=== PATIENT | female | born 1965 | race African-American/Black ===

== ENCOUNTER 2017-08-15 08:18 | Inpatient (IN) | payer MEDICAID ==
[~2017-08-15] VITALS: Ht 154.9 cm; Wt 78.8 kg
[~2017-08-15 08:18] MED LIST: BACL-63; DICL-176; DOCU1CAP31; FENO1TAB41; FERR325T50 PO; FLUO20CA PO; NAPR-223; PREMARIN PO; ROSU20TA14; TRIA25CA; VENL37.588
[2017-08-15] MEDS ORDERED: SODIUM CHLORIDE 0.9% 1,000 ML IV ONE ×3 (08:42→18:00)
[2017-08-15] MEDS ORDERED: methylPREDNISolone SOD SUCC 125 MG/2 ML VL IV ONE (08:45)
[2017-08-15] MEDS ORDERED: diphenhdrAMINE HCL 50 MG/1 ML VL IV ONE ×5 (08:45→18:00)
[2017-08-15 09:04] LABS: Eosinophils # (auto) 0.2 uL; Neutrophils # (auto) 4.2 uL
[2017-08-15 09:06] LABS: Basophils # (auto) 0.1 uL; Basophils % (auto) 1.1 % (0.0-2.0); Eosinophils % (auto) 3.3 % (0.0-7.0); Hematocrit 36.2 % (36.0-46.0); Hemoglobin 11.6 g/dL (12.2-16.2); Lymphocytes # (auto) 1.4 uL; Lymphocytes % (auto) 22.5 % (10.0-50.0); Mean Corpuscular Hemoglobin 22.1 pg (28.0-32.0); Mean Corpuscular Hgb Conc. 31.9 g/dL (32.0-36.0); Mean Corpuscular Volume 69.3 fL (80.0-100.0); Monocytes # (auto) 0.2 uL; Monocytes % (auto) 4.1 % (0.0-12.0); Nucleated Red Blood Cells % 0.1 %; Platelet Count (auto) 323 10^3/uL (140-450); Red Blood Cells 5.22 10^6/uL (4.0-5.20)
[2017-08-15 09:25] LABS: Albumin 3.8 g/dL (3.4-5.0); BUN/Creatinine Ratio 11.2; Calcium 9.1 mg/dL (8.5-10.1); Magnesium 2.5 mg/dL (1.6-2.6); Potassium 4.1 mmol/L (3.5-5.1)
[2017-08-15 09:28] LABS: Total Protein 8.1 g/dL (6.4-8.2)
[2017-08-15] MEDS ORDERED: DEXAMETHASONE SOD PHOS 10MG/1ML VIAL INJ ONE (10:44)
[2017-08-15] MEDS ORDERED: DEXAMETHASONE SOD PHOS 4 MG/1ML SDV INJ IV ONE ×3 (11:00→18:00)
[2017-08-15 11:09] LABS: Urine Bacteria NONE SEEN /hpf (None Seen); Urine Blood Negative /uL (Negative); Urine Mucus FEW (None Seen); Urine Specific Gravity 1.018 (1.001-1.035); Urine WBC <1 /hpf (0 - 5)
[2017-08-15 12:58] LABS: Bilirubin, Total 0.3 mg/dL (0.2-1.0)
[2017-08-15] MEDS ORDERED: EPINEPHrine HCL 1 MG/1 ML AMP SC ONE ×2 (16:15→18:00)
[2017-08-15] MEDS: SODIUM CHLORIDE 0.9% 1,000 ML IV SCH (18:05)
[2017-08-15] MEDS ORDERED: LORazepam 0.5 MG TAB PO PRN (18:15)
[2017-08-15] MEDS ORDERED: HYDROcodone-ACET 5/325MG TAB PO PRN (18:15)
[2017-08-15] MEDS ORDERED: ACETAMINOPHEN 500 MG TAB PO PRN (18:15)
[2017-08-15] MEDS: FAMOTIDINE (10MG/ML) 2ML VL IV SCH (18:15)
[2017-08-15] MEDS ORDERED: NITROGLYCERIN 0.4 MG SL TAB SL PRN (18:15)
[2017-08-15] MEDS ORDERED: LACTULOSE 20Gm/30ML SOLN PO PRN (18:15)
[2017-08-15] MEDS ORDERED: TEMAZEPAM 15 MG CAP PO PRN (18:15)
[2017-08-15] MEDS ORDERED: ALBUTEROL SULF 2.5 MG/0.5ML(0.5%) NEB SOLN NEB PRN (18:15)
[2017-08-15] MEDS ORDERED: PROMETHAZINE HCL 25 MG/ML 1ML IV PRN (18:15)
[2017-08-15] MEDS ORDERED: MORPHINE SULFATE 10 MG/ML INJ 1ML SDV IV PRN ×2 (18:15)
[2017-08-15 20:30] VITALS: BP 137/73
[2017-08-15 23:04] VITALS: BP 137/73
[2017-08-16] MEDS: methylPREDNISolone SOD SUCC 40 MG/ML VL IV SCH ×4 (00:10→17:36)
[2017-08-16 01:46] VITALS: BP 137/73
[2017-08-16 05:00] VITALS: BP 145/71
[2017-08-16] MEDS: FAMOTIDINE (10MG/ML) 2ML VL IV SCH ×2 (05:22→17:37)
[2017-08-16] MEDS ORDERED: SIMV80TA73 PO (06:06)
[2017-08-16] MEDS ORDERED: RANI-226 PO (06:06)
[2017-08-16] MEDS ORDERED: QUET400T PO (06:06)
[2017-08-16] MEDS ORDERED: GABA300C10 PO (06:06)
[2017-08-16] MEDS ORDERED: LISI10TA6 PO (06:06)
[2017-08-16] MEDS: VENLAFAXINE HCL 37.5mg XR cap PO SCH (06:42)
[2017-08-16] MEDS: SODIUM CHLORIDE 0.9% 1,000 ML IV SCH (07:25)
[2017-08-16 09:00] VITALS: BP 135/81
[2017-08-16] MEDS: FLUoxetine HCL 20 MG CAP PO SCH (09:22)
[2017-08-16] MEDS: FERROUS SULFATE 325MG PO SCH (09:22)
[2017-08-16] MEDS: ENOXAPARIN SOD 40 MG/0.4 ML SYRINGE SC SCH (09:23)
[2017-08-16] MEDS: FENOFIBRATE 48MG PO SCH (09:31)
[2017-08-16] MEDS: PREMARIN 0.9 MG PO SCH (09:34)
[2017-08-16] MEDS: ALBUTEROL SULF 2.5 MG/0.5ML(0.5%) NEB SOLN NEB SCH ×2 (12:00→20:16)
[2017-08-16 13:00] VITALS: BP 158/97
[2017-08-16] MEDS ORDERED: SODIUM CHLORIDE 0.9 % NEB SOLN 3ML NEB ONE (14:40)
[2017-08-16] MEDS: diphenhdrAMINE HCL 50 MG/1 ML VL IV SCH ×2 (14:49→21:36)
[2017-08-16 17:00] VITALS: BP 134/81
[2017-08-16 22:00] VITALS: BP 157/96
[2017-08-16] MEDS: methylPREDNISolone SOD SUCC 125 MG/2 ML VL IV SCH (23:50)
[2017-08-17] MEDS: ALBUTEROL SULF 2.5 MG/0.5ML(0.5%) NEB SOLN NEB SCH ×4 (00:32→19:46)
[2017-08-17 05:15] VITALS: BP 152/95
[2017-08-17] MEDS: diphenhdrAMINE HCL 50 MG/1 ML VL IV SCH ×3 (05:45→21:53)
[2017-08-17] MEDS: methylPREDNISolone SOD SUCC 125 MG/2 ML VL IV SCH ×3 (05:46→17:28)
[2017-08-17] MEDS: FAMOTIDINE (10MG/ML) 2ML VL IV SCH ×2 (06:49→17:28)
[2017-08-17] MEDS: VENLAFAXINE HCL 37.5mg XR cap PO SCH (06:49)
[2017-08-17 07:27] VITALS: BP 139/76
[2017-08-17] MEDS: FENOFIBRATE 48MG PO SCH (10:00)
[2017-08-17] MEDS: PREMARIN 0.9 MG PO SCH (10:21)
[2017-08-17] MEDS: FERROUS SULFATE 325MG PO SCH (10:21)
[2017-08-17] MEDS: FLUoxetine HCL 20 MG CAP PO SCH (10:21)
[2017-08-17] MEDS: METOPROLOL TARTRATE 25 MG TAB PO SCH ×2 (10:21→21:55)
[2017-08-17] MEDS: ENOXAPARIN SOD 40 MG/0.4 ML SYRINGE SC SCH (10:22)
[2017-08-17 11:52] VITALS: BP 139/83
[2017-08-17 16:42] VITALS: BP 149/95
[2017-08-17] MEDS ORDERED: PROMETHAZINE W/CODEINE 5 ML ORAL SYRUP PO PRN (20:00)
[2017-08-17] MEDS ORDERED: THROAT LOZENGES(CEPASTAT) MT PRN (20:00)
[2017-08-17 22:00] VITALS: BP 150/92
[2017-08-18] MEDS: methylPREDNISolone SOD SUCC 125 MG/2 ML VL IV SCH ×3 (01:13→11:28)
[2017-08-18 05:00] VITALS: BP 155/79
[2017-08-18] MEDS: ALBUTEROL SULF 2.5 MG/0.5ML(0.5%) NEB SOLN NEB SCH ×3 (06:00→11:30)
[2017-08-18] MEDS: VENLAFAXINE HCL 37.5mg XR cap PO SCH (06:50)
[2017-08-18] MEDS: diphenhdrAMINE HCL 50 MG/1 ML VL IV SCH ×2 (06:50→14:00)
[2017-08-18] MEDS: FAMOTIDINE (10MG/ML) 2ML VL IV SCH (07:02)
[2017-08-18 08:20] LABS: Basophils # (auto) 0 uL; Basophils % (auto) 0.3 % (0.0-2.0); Eosinophils # (auto) 0 uL; Hematocrit 35.1 % (36.0-46.0); Hemoglobin 10.8 g/dL (12.2-16.2); Lymphocytes # (auto) 0.6 uL; Lymphocytes % (auto) 4.2 % (10.0-50.0); Mean Corpuscular Hemoglobin 21.5 pg (28.0-32.0); Mean Corpuscular Hgb Conc. 30.7 g/dL (32.0-36.0); Monocytes # (auto) 0.4 uL; Monocytes % (auto) 2.8 % (0.0-12.0); Neutrophils # (auto) 12.8 uL; Neutrophils % (auto) 92.7 % (37.0-80.0); Platelet Count (auto) 329 10^3/uL (140-450); Red Blood Cells 5.01 10^6/uL (4.0-5.20); White Blood Cell 13.8 10^3/uL (4.4-10.8)
[2017-08-18 08:37] LABS: Albumin 3.3 g/dL (3.4-5.0); BUN/Creatinine Ratio 22.1; Calcium 8.8 mg/dL (8.5-10.1); Potassium 3.6 mmol/L (3.5-5.1)
[2017-08-18 08:50] LABS: Bilirubin, Total 0.1 mg/dL (0.2-1.0); Total Protein 7.3 g/dL (6.4-8.2)
[2017-08-18 09:00] VITALS: BP 151/87
[2017-08-18] MEDS: FENOFIBRATE 48MG PO SCH (10:00)
[2017-08-18] MEDS: ENOXAPARIN SOD 40 MG/0.4 ML SYRINGE SC SCH (10:13)
[2017-08-18] MEDS: FLUoxetine HCL 20 MG CAP PO SCH (10:13)
[2017-08-18] MEDS: PREMARIN 0.9 MG PO SCH (10:13)
[2017-08-18] MEDS: FERROUS SULFATE 325MG PO SCH (10:13)
[2017-08-18] MEDS: METOPROLOL TARTRATE 25 MG TAB PO SCH (10:13)
[2017-08-18 13:00] VITALS: BP 174/95
[2017-08-18 13:08] VITALS: BP 146/94
== END 2017-08-18 13:55 | disposition home or self-care (01) | DRG 811 ==
LOC: ER 08:18 → TELE 08:19 → TELE-WESTW 20:30 → WEST WING 08-17 09:18
PROVIDERS: ADMIT Internal Medicine; ATTEND Internal Medicine
DX: T78.3XXA Angioneurotic edema, initial encounter (principal); E44.1 Mild protein-calorie malnutrition; I10 Essential (primary) hypertension; R22.9 Localized swelling, mass and lump, unspecified; T46.4X5A Adverse effect of angiotensin-converting-enzyme inhibitors, initial encounter; E78.5 Hyperlipidemia, unspecified; K21.9 Gastro-esophageal reflux disease without esophagitis; F32.9 Major depressive disorder, single episode, unspecified; F41.9 Anxiety disorder, unspecified; Y84.8 Other medical procedures as the cause of abnormal reaction of the patient, or of later complication, without mention of misadventure at the time of the procedure; Y92.89 Other specified places as the place of occurrence of the external cause; Z88.0 Allergy status to penicillin; Z79.899 Other long term (current) drug therapy
CPT/HCPCS: 36415; 71045; 80053; 81001; 83735; 85025; 94640; 94761; 96361; 96374; 96375; 96376; J0171; J1100; J3490

== ENCOUNTER 2023-06-16 09:58 | Emergency (ER) | payer MEDICAID, MEDICARE, OTHER ==
[~2023-06-16] VITALS: Ht 162.6 cm; Wt 62.4 kg
[~2023-06-16 09:58] MED LIST changes: +ASPI-498 OR; +ASPI-543 PO; +ATO40T PO; -BACL-63; +CETI10CA PO; -DICL-176; +DICY10CA PO; +DIPH25TA31 PO; +DIPH50TA9 PO; +DOCU-94 PO; -DOCU1CAP31; +ERGO2000 PO; +EST0625T PO; +ESTR1TAB6 PO; +FAMO-161 PO; +FER325T PO; -FERR325T50 PO; +FLUO20TA36 PO; +LEV75T PO; +LEVO75TA6 PO; +LINA290C OR; +LISI10TA34 PO; +METF-370 PO; +METO10TA3 PO; +METO1TAB77 PO; +METO25TA5 PO; -NAPR-223; +OMEP20TA PO; +PANT40TA2 PO; +POLY33504 PO; -PREMARIN PO; +QUET300T14 PO; +QUET400T PO; -ROSU20TA14; +SIMV40TA18 PO; +SUCR1TAB PO; +SUCR1TAB22 OR; -TRIA25CA; +ZOLP5TAB5 PO
[2023-06-16 10:31] VITALS: BP 112/73; PULSE 83; RESP 18; TEMP 97.8; O2SAT 99
[2023-06-16] MEDS ORDERED: OMEP-434 PO (10:53)
== END 2023-06-16 11:04 | disposition home or self-care (01) ==
LOC: ER 09:58
DX: S63.632A Sprain of interphalangeal joint of right middle finger, initial encounter (principal); Z88.0 Allergy status to penicillin; Z79.899 Other long term (current) drug therapy; W23.0XXA Caught, crushed, jammed, or pinched between moving objects, initial encounter; Y93.89 Activity, other specified; Y92.89 Other specified places as the place of occurrence of the external cause; Y99.8 Other external cause status
CPT/HCPCS: 29130; 73130

== ENCOUNTER 2023-10-09 09:44 | Emergency (ER) | payer OTHER ==
[~2023-10-09 09:44] MED LIST changes: +OMEP-434 PO
[2023-10-09 11:04] LABS: Basophils # (auto) 0 10 ^3/uL (0-0.2); Eosinophils # (auto) 0.1 10 ^3/uL (0-0.8); Hemoglobin 11.2 g/dL (12.2-16.2); Lymphocytes # (auto) 2.2 10 ^3/uL (0.4-5.4); Mean Corpuscular Hemoglobin 20.8 pg (28.0-32.0); Mean Corpuscular Volume 67.1 fL (80.0-100.0)
[2023-10-09 11:05] LABS: Basophils % (auto) 0.6 % (0.0-2.0); Hematocrit 36.2 % (36.0-46.0); Lymphocytes % (auto) 39.8 % (10.0-50.0); Mean Corpuscular Hgb Conc. 30.9 g/dL (32.0-36.0); Monocytes # (auto) 0.4 10 ^3/uL (0-1.3); Monocytes % (auto) 6.5 % (0.0-12.0); Neutrophils # (auto) 2.9 10 ^3/uL (1.6-8.6); Neutrophils % (auto) 52.1 % (37.0-80.0); Nucleated Red Blood Cells % 0.1 %; Red Blood Cells 5.39 10^6/uL (4.0-5.20); Red Cell Distribution Width 14.3 % (11.8-14.3); White Blood Cell 5.6 10^3/uL (4.4-10.8)
[2023-10-09 11:13] LABS: Alanine Aminotransferase 24 U/L (7-40); Albumin 4.3 g/dL (3.2-4.8); Alkaline Phosphatase 74 U/L (46-116); Anion Gap 7 (5-15); Aspartate Aminotransferase 27 U/L (13-40); BUN/Creatinine Ratio 14.7 (10.0-20.0); Blood Urea Nitrogen 16 mg/dL (9-23); Calcium 9.3 mg/dL (8.7-10.4); Carbon Dioxide 29 mmol/L (20-30); Chloride 104 mmol/L (98-107); Glucose 85 mg/dL (74-106); Lipase 42 U/L (12-53); Potassium 3.9 mmol/L (3.5-5.1); Sodium 140 mmol/L (136-145)
[2023-10-09 11:13] LABS: Urine Bacteria FEW /hpf (None Seen); Urine Blood Negative /uL (Negative); Urine Clarity Clear (Clear); Urine Color Colorless (Yellow); Urine Protein, UAD Negative (Negative); Urine Specific Gravity 1.011 (1.001-1.035); Urine Urobilinogen Normal (Negative); Urine WBC <1 /hpf (0 - 5); Urine pH 6.5 (5.0-8.0)
[2023-10-09 11:14] LABS: Bilirubin, Total 0.3 mg/dL (0.2-1.0); Total Protein 6.8 g/dL (5.7-8.2)
[2023-10-09] MEDS: ONDANSETRON HCL 4 MG/2 ML VIAL IV ONE (11:27)
[2023-10-09] MEDS: SODIUM CHLORIDE 0.9% 1,000 ML IV ONE (11:27)
[2023-10-09] MEDS: KETOROLAC TROMETH 30 MG/ML 1ML VIAL IV ONE (11:27)
[2023-10-09 11:34] LABS: Platelet Estimate Adequate
[2023-10-09 11:35] LABS: Hypochromia Marked
[2023-10-09] MEDS: GASTROGRAFIN 120 ML SOL ONE (12:14)
[2023-10-09] MEDS ORDERED: MAGN100T6 OR (14:19)
[2023-10-09] MEDS ORDERED: SODIENE35 RE (14:35)
[2023-10-09 14:42] VITALS: BP 110/77; PULSE 83; RESP 18; TEMP 98; O2SAT 98
[2023-10-09] MEDS: MAGNESIUM CITRATE SOLUTION 300 ML BTL PO ONE (14:44)
== END 2023-10-09 14:47 | disposition home or self-care (01) ==
LOC: ER 09:44
DX: K59.00 Constipation, unspecified (principal); I10 Essential (primary) hypertension; E11.9 Type 2 diabetes mellitus without complications; E78.5 Hyperlipidemia, unspecified; K21.9 Gastro-esophageal reflux disease without esophagitis; F41.9 Anxiety disorder, unspecified; F32.9 Major depressive disorder, single episode, unspecified; Z86.2 Personal history of diseases of the blood and blood-forming organs and certain disorders involving the immune mechanism; Z98.890 Other specified postprocedural states; Z88.8 Allergy status to other drugs, medicaments and biological substances; Z79.899 Other long term (current) drug therapy
CPT/HCPCS: 36415; 74250; 80053; 81001; 83690; 85025; 96361; 96374; 96375; 99284; J1885; J2405; J7030; Q9963

== ENCOUNTER → 2023-10-15 | Outpatient (CLI) | payer OTHER ==
[~2023-10-15] MED LIST changes: +MAGN100T6 OR; +SODIENE35 RE
== END | disposition home or self-care (01) ==
LOC: XYW 14:46
PROVIDERS: ATTEND Student in an Organized Health Care Education/Training Program
DX: R07.9 Chest pain, unspecified (principal); I51.89 Other ill-defined heart diseases
CPT/HCPCS: 93306

== ENCOUNTER → 2023-10-29 | Outpatient (CLI) | payer OTHER ==
[~2023-10-29] VITALS: Ht 154.9 cm; Wt 63.5 kg
[2023-10-29] MEDS: ADENOSINE 53 MG in GIVE UN-DILUTED 0 ML IV STA (12:24)
== END | disposition home or self-care (01) ==
LOC: XYW 10:04
PROVIDERS: ATTEND Student in an Organized Health Care Education/Training Program
DX: Z01.810 Encounter for preprocedural cardiovascular examination (principal); R07.9 Chest pain, unspecified; E78.5 Hyperlipidemia, unspecified; I10 Essential (primary) hypertension; E11.65 Type 2 diabetes mellitus with hyperglycemia; E03.9 Hypothyroidism, unspecified; Z79.899 Other long term (current) drug therapy
CPT/HCPCS: 78452; 93017; A9500; J0153

== ENCOUNTER 2023-11-20 08:37 | Inpatient (IN) | payer OTHER ==
[2023-11-16 09:01] LABS: Basophils # (auto) 0 10 ^3/uL (0-0.2); Eosinophils # (auto) 0.1 10 ^3/uL (0-0.8); Lymphocytes # (auto) 2.3 10 ^3/uL (0.4-5.4); Mean Corpuscular Hemoglobin 20.7 pg (28.0-32.0); Monocytes # (auto) 0.3 10 ^3/uL (0-1.3); Nucleated Red Blood Cells % 0.1 %; White Blood Cell 5.4 10^3/uL (4.4-10.8)
[2023-11-16 09:04] LABS: Basophils % (auto) 0.7 % (0.0-2.0); Hematocrit 33.9 % (36.0-46.0); Hemoglobin 10.4 g/dL (12.2-16.2); Lymphocytes % (auto) 43.1 % (10.0-50.0); Mean Corpuscular Hgb Conc. 30.7 g/dL (32.0-36.0); Mean Corpuscular Volume 67.5 fL (80.0-100.0); Monocytes % (auto) 4.8 % (0.0-12.0); Neutrophils # (auto) 2.7 10 ^3/uL (1.6-8.6); Neutrophils % (auto) 50.4 % (37.0-80.0); Red Blood Cells 5.03 10^6/uL (4.0-5.20); Red Cell Distribution Width 16.1 % (11.8-14.3)
[2023-11-16 09:10] LABS: Urine Bacteria MOD /hpf (None Seen); Urine Blood Negative /uL (Negative); Urine Clarity Turbid (Clear); Urine Color Light-Orange (Yellow); Urine Mucus FEW (None Seen); Urine Protein, UAD 2+ (Negative); Urine Specific Gravity 1.036 (1.001-1.035); Urine Urobilinogen Normal (Negative); Urine WBC 2 /hpf (0 - 5); Urine pH 5.5 (5.0-9.0)
[2023-11-16 09:17] LABS: Partial Thromboplastin Time 27.4 SEC (24.5-34.5); Prothrombin Time 10.5 sec (9.3-11.8)
[2023-11-16 09:32] LABS: Alanine Aminotransferase 27 U/L (7-40); Albumin 4.2 g/dL (3.2-4.8); Alkaline Phosphatase 70 U/L (46-116); Anion Gap 9 (5-15); Aspartate Aminotransferase 29 U/L (13-40); BUN/Creatinine Ratio 12.6 (10.0-20.0); Blood Urea Nitrogen 15 mg/dL (9-23); Calcium 9.1 mg/dL (8.5-10.1); Carbon Dioxide 24 mmol/L (20-30); Chloride 108 mmol/L (98-107); Glucose 126 mg/dL (74-106); Potassium 3.6 mmol/L (3.5-5.1); Sodium 141 mmol/L (136-145)
[2023-11-16 09:33] LABS: Bilirubin, Total 0.4 mg/dL (0.2-1.0); Hypochromia Moderate; Ovalocytes MODERATE; Platelet Estimate Adequate; Total Protein 6.8 g/dL (5.7-8.2)
[~2023-11-20] VITALS: Ht 154.9 cm; Wt 80.9 kg
[~2023-11-20 08:37] MED LIST changes: -ASPI-498 OR; -ASPI-543 PO; -ATO40T PO; +ATOR-507 PO; -DIPH50TA9 PO; +HYDR1TAB97 PO; -LEV75T PO; -LISI10TA34 PO; -METO25TA5 PO; -OMEP-434 PO; -PANT40TA2 PO; -QUET300T14 PO; -SUCR1TAB PO; -SUCR1TAB22 OR; +SUCR1TAB31 OR
[2023-11-20] MEDS ORDERED: PROPOFOL 10 MG/ML 20 ML IV ONE (09:48)
[2023-11-20] MEDS ORDERED: DexAMETHasone SOD PHOS 10MG/1ML VIAL INJ ONE (09:48)
[2023-11-20] MEDS ORDERED: ROCURONIUM 10MG/ML 10ML VIAL IV ONE (09:48)
[2023-11-20] MEDS ORDERED: GLYCOPYRROLATE 0.2 MG/ML 1ML VIAL ONE (09:48)
[2023-11-20] MEDS ORDERED: ONDANSETRON HCL 4 MG/2 ML VIAL ONE (09:48)
[2023-11-20] MEDS: GABAPENTIN 400 MG CAP PO ONE (10:50)
[2023-11-20] MEDS: oxyCODONE ER 20 MG TAB PO ONE (10:50)
[2023-11-20] MEDS: ACETAMINOPHEN IV 1000 MG/100ML (10MG/ML) IV ONE (10:50)
[2023-11-20] MEDS ORDERED: KETAMINE 50mg/ML 1ml syringe ONE (10:56)
[2023-11-20] MEDS ORDERED: fentaNYL CITRATE 100 MCG/2 ML VL ONE (10:56)
[2023-11-20] MEDS ORDERED: LIDOCAINE 1% INJ PF 5ML AMP ONE (10:57)
[2023-11-20] MEDS ORDERED: SODIUM CHLORIDE LOCK 10 ML ONE (11:40)
[2023-11-20] MEDS ORDERED: SUGAMMADEX 200mg/2ml Vial (100MG/ML) IV ONE (11:51)
[2023-11-20] MEDS ORDERED: VANCOMYCIN PER PHARMACY 0 MG IV SCH (13:30)
[2023-11-20] MEDS ORDERED: ONDANSETRON HCL 4 MG/2 ML VIAL IV PRN ×2 (13:30→14:30)
[2023-11-20] MEDS ORDERED: FAMOTIDINE 20 MG TAB PO PRN (13:30)
[2023-11-20] MEDS ORDERED: MORPHINE SULFATE INJ 2 MG/ml SYRG IV PRN (13:30)
[2023-11-20] MEDS ORDERED: NITROGLYCERIN 0.4 MG SL TAB SL PRN (13:30)
[2023-11-20] MEDS ORDERED: HYDR-4798 PO (13:55)
[2023-11-20] MEDS ORDERED: CYCL-611 PO (13:55)
[2023-11-20 13:58] VITALS: O2SAT 100
[2023-11-20] MEDS ORDERED: HYDROmorphone HCL 2 MG/ML VL/or syr IV PRN (14:30)
[2023-11-20] MEDS ORDERED: FLUMAZENIL 0.1 MG/ML INJ 10ML MDV IV PRN (14:30)
[2023-11-20] MEDS ORDERED: ePHEDrine SULFATE 50 MG/ML AMP IV PRN (14:30)
[2023-11-20] MEDS ORDERED: LABETALOL HCL 5 MG/ML 4ML SYRINGE IV PRN (14:30)
[2023-11-20] MEDS ORDERED: NALOXONE HCL 0.4 MG/ML VIAL IV PRN (14:30)
[2023-11-20] MEDS ORDERED: fentaNYL CITRATE 100 MCG/2 ML VL IV PRN (14:30)
[2023-11-20] MEDS ORDERED: hydrALAZINE HCL 20 MG/ML VL IV PRN (14:30)
[2023-11-20 17:00] VITALS: BP 147/94; PULSE 76; PULSE 86; RESP 18; RESP 20; TEMP 97.9; O2SAT 94; O2SAT 96
[2023-11-20] MEDS: ceFAZolin 1GM/50ML 50 ML IV SCH (17:03)
[2023-11-20] MEDS: D5W/SOD CHLO 0.9% 1,000 ML IV SCH (17:03)
[2023-11-20] MEDS: CYCLOBENZAPRINE HCL 10 MG TAB PO SCH (17:04)
[2023-11-20] MEDS: MORPHINE SULFATE INJ 2 MG/ml SYRG IV PRN (17:40)
[2023-11-20] MEDS: ZOLPIDEM TARTRATE 5 MG TAB PO SCH (17:41)
[2023-11-20] MEDS: VANCOMYCIN 750mg/150ml 150 ML IV ONE ×2 (18:00→22:21)
[2023-11-20 20:00] VITALS: PULSE 92
[2023-11-20] MEDS: metFORMIN HYDROCHLORIDE 500 MG TAB PO SCH (20:09)
[2023-11-20] MEDS: HYDROcodone-ACET 10/325MG TAB PO PRN (20:09)
[2023-11-20 21:00] VITALS: BP 138/83; PULSE 87; RESP 16; TEMP 98.3; O2SAT 95
[2023-11-20] MEDS: DOCUSATE SOD 100 MG CAP PO SCH (21:25)
[2023-11-20] MEDS: FERROUS SULFATE 325mg EC TAB PO SCH (21:25)
[2023-11-20] MEDS: METOPROLOL TARTRATE 50 MG TAB PO SCH (21:26)
[2023-11-20] MEDS: QUEtiapine FUMARATE 100 MG TAB PO SCH (22:22)
[2023-11-21] VITALS (8 sets, daily range): BP systolic 110–152; BP diastolic 63–90; PULSE 67–85; RESP 15–19; TEMP 97.8–98.9; O2SAT 90–96
[2023-11-21] MEDS: ceFAZolin 1GM/50ML 50 ML IV SCH (01:22)
[2023-11-21] MEDS: LEVOTHYROXINE SODIUM 25 MCG TAB PO SCH (06:51)
[2023-11-21] MEDS: METOCLOPRAMIDE HCL 10 MG TAB PO SCH (06:51)
[2023-11-21] MEDS: ESTRADIOL 1 MG TAB PO SCH (06:59)
[2023-11-21 08:57] LABS: Basophils # (auto) 0 10 ^3/uL (0-0.2); Basophils % (auto) 0.3 % (0.0-2.0); Chloride 108 mmol/L (98-107); Eosinophils # (auto) 0 10 ^3/uL (0-0.8); Eosinophils % (auto) 0.1 % (0.0-7.0); Mean Corpuscular Hemoglobin 21.1 pg (28.0-32.0); Nucleated Red Blood Cells % 0.1 %; Potassium 4.2 mmol/L (3.5-5.1); Sodium 139 mmol/L (136-145)
[2023-11-21 08:58] LABS: Anion Gap 8 (5-15); Carbon Dioxide 23 mmol/L (20-30)
[2023-11-21 08:59] LABS: Calcium 8.8 mg/dL (8.5-10.1); Hematocrit 28.7 % (36.0-46.0); Lymphocytes # (auto) 1.5 10 ^3/uL (0.4-5.4); Lymphocytes % (auto) 14.8 % (10.0-50.0); Mean Corpuscular Hgb Conc. 31.2 g/dL (32.0-36.0); Mean Corpuscular Volume 67.6 fL (80.0-100.0); Monocytes # (auto) 0.5 10 ^3/uL (0-1.3); Monocytes % (auto) 5.3 % (0.0-12.0); Neutrophils # (auto) 8.1 10 ^3/uL (1.6-8.6); Neutrophils % (auto) 79.5 % (37.0-80.0); Red Blood Cells 4.24 10^6/uL (4.0-5.20); Red Cell Distribution Width 16.4 % (11.8-14.3); White Blood Cell 10.2 10^3/uL (4.4-10.8)
[2023-11-21] MEDS: diphenhdrAMINE HCL 25 MG CAP PO SCH (09:00)
[2023-11-21] MEDS: PANTOPRAZOLE 40 MG TAB PO SCH (09:00)
[2023-11-21] MEDS: FLUoxetine HCL 20 MG CAP PO SCH (09:00)
[2023-11-21] MEDS: ERGOCALCIFEROL 50,000 UNIT(1.25MG) CAP PO SCH (09:00)
[2023-11-21] MEDS: POLYETHYLENE GLYCOL 17 GM PWDR PO SCH (09:01)
[2023-11-21] MEDS: FLUOXETINE HCL PO SCH (09:02)
[2023-11-21] MEDS: ESTROGENS CONJUGATED 1.25 MG PO SCH (09:02)
[2023-11-21 09:03] LABS: Glucose 129 mg/dL (74-106)
[2023-11-21 09:04] LABS: BUN/Creatinine Ratio 12.2 (10.0-20.0); Blood Urea Nitrogen 12 mg/dL (9-23)
[2023-11-21] MEDS: oxyCODONE HCL 5MG TAB PO PRN (09:15)
[2023-11-21] MEDS: VANCOMYCIN 750mg/150ml 150 ML IV SCH (11:00)
[2023-11-21] MEDS: HYDROmorphone HCL 2 MG TAB PO PRN (11:13)
[2023-11-21] MEDS ORDERED: DEXTROSE (50%) 50ML SYRG IV PRN (11:15)
[2023-11-21] MEDS: ACCU-CHEK COMFORT CURVE STRIP VI SCH (12:05)
[2023-11-21] MEDS: InsuLIN REG 1unit/0.01ml Soln (100units/ml) SC SCH (12:53)
[2023-11-21] MEDS: CARISOPRODOL 350 MG TAB PO SCH (13:58)
[2023-11-21] MEDS: METOPROLOL TARTRATE 50 MG TAB PO SCH (22:15)
[2023-11-22] VITALS (8 sets, daily range): BP systolic 111–145; BP diastolic 78–87; PULSE 83–89; RESP 17–18; TEMP 98.1–100.5; O2SAT 91–94
[2023-11-22 07:05] LABS: Basophils # (auto) 0 10 ^3/uL (0-0.2); Hematocrit 31.1 % (36.0-46.0); Lymphocytes # (auto) 2.1 10 ^3/uL (0.4-5.4); Neutrophils # (auto) 6.8 10 ^3/uL (1.6-8.6); Red Blood Cells 4.55 10^6/uL (4.0-5.20)
[2023-11-22 07:06] LABS: Chloride 106 mmol/L (98-107); Potassium 3.6 mmol/L (3.5-5.1); Sodium 137 mmol/L (136-145)
[2023-11-22 07:07] LABS: Anion Gap 10 (5-15); Basophils % (auto) 0.4 % (0.0-2.0); Calcium 8.4 mg/dL (8.5-10.1); Carbon Dioxide 21 mmol/L (20-30); Eosinophils # (auto) 0 10 ^3/uL (0-0.8); Eosinophils % (auto) 0.5 % (0.0-7.0); Hemoglobin 9.5 g/dL (12.2-16.2); Lymphocytes % (auto) 21.7 % (10.0-50.0); Mean Corpuscular Hemoglobin 20.9 pg (28.0-32.0); Mean Corpuscular Hgb Conc. 30.6 g/dL (32.0-36.0); Mean Corpuscular Volume 68.5 fL (80.0-100.0); Monocytes # (auto) 0.6 10 ^3/uL (0-1.3); Monocytes % (auto) 6.6 % (0.0-12.0); Neutrophils % (auto) 70.8 % (37.0-80.0); Nucleated Red Blood Cells % 0.1 %; Red Cell Distribution Width 16.4 % (11.8-14.3); White Blood Cell 9.6 10^3/uL (4.4-10.8)
[2023-11-22 07:12] LABS: BUN/Creatinine Ratio 10.1 (10.0-20.0); Blood Urea Nitrogen 9 mg/dL (9-23); Glucose 125 mg/dL (74-106)
[2023-11-22] MEDS: MAGNESIUM SULFATE 1GM/100ML 100 ML IV ONE (10:27)
[2023-11-22] MEDS: TRANEXAMIC ACID 20 ML ONE (10:27)
[2023-11-22] MEDS: LIDOCAINE 4MG/ML IV SOLN 500 ML IV ONE (10:27)
[2023-11-22] MEDS: LIDOCAINE W/ EPINEPHRINE 1% 20ML VIAL ONE (10:28)
[2023-11-22] MEDS: GABAPENTIN 400 MG CAP ONE (10:28)
[2023-11-22] MEDS: VANCOMYCIN HCL 1000 MG VL ONE (10:28)
[2023-11-22] MEDS: oxyCODONE ER 20 MG TAB PO ONE (10:28)
[2023-11-22] MEDS: LIDOCAINE HCL 2 %PF INJ 10ML AMP IJ ONE (10:29)
[2023-11-22] MEDS: ACETAMINOPHEN IV 100 ML IV ONE (10:29)
[2023-11-22] MEDS: FLUoxetine HCL 20 MG CAP PO SCH (11:16)
[2023-11-22] MEDS ORDERED: LEV100T PO (11:32)
[2023-11-22] MEDS: D5W/SOD CHLO 0.9% 1,000 ML IV SCH (11:34)
[2023-11-22] MEDS ORDERED: PLEC3TAB2 PO (11:52)
[2023-11-22] MEDS ORDERED: NALO1TAB4 PO (11:52)
[2023-11-22] MEDS ORDERED: HYDR50TA69 PO (11:52)
[2023-11-22] MEDS ORDERED: LUBI24CA7 PO (11:52)
[2023-11-22] MEDS ORDERED: AML5T GT (11:52)
[2023-11-22] MEDS: ACETAMINOPHEN 325 MG TAB PO PRN (21:19)
[2023-11-23] VITALS (8 sets, daily range): BP systolic 113–141; BP diastolic 66–92; PULSE 90–96; RESP 6–20; TEMP 98.4–100.3; O2SAT 90–93
[2023-11-23] MEDS: HYDROmorphone HCL 2 MG TAB PO PRN (09:31)
[2023-11-23 20:44] LABS: Urine Bacteria None Seen /hpf (None Seen)
[2023-11-23 21:32] LABS: Urine Blood 2+ /uL (Negative); Urine Clarity Clear (Clear); Urine Color Light-Yellow (Yellow); Urine Mucus FEW (None Seen); Urine Protein, UAD 2+ (Negative); Urine Specific Gravity 1.023 (1.001-1.035); Urine Urobilinogen Normal (Negative); Urine WBC 8 /hpf (0 - 5); Urine pH 6.5 (5.0-9.0)
[2023-11-23 21:34] LABS: Urine Budding Yeast Few /hpf (None Seen)
[2023-11-24 05:22] VITALS: BP 147/75; PULSE 86; RESP 17; TEMP 98; O2SAT 90
[2023-11-24 06:09] LABS: Basophils # (auto) 0 10 ^3/uL (0-0.2); Basophils % (auto) 0.4 % (0.0-2.0); Eosinophils # (auto) 0.2 10 ^3/uL (0-0.8); Lymphocytes # (auto) 1.3 10 ^3/uL (0.4-5.4); Mean Corpuscular Hgb Conc. 31.7 g/dL (32.0-36.0); Neutrophils # (auto) 6.4 10 ^3/uL (1.6-8.6); Nucleated Red Blood Cells % 0.1 %; White Blood Cell 8.7 10^3/uL (4.4-10.8)
[2023-11-24 06:12] LABS: Eosinophils % (auto) 2.1 % (0.0-7.0); Hematocrit 27.2 % (36.0-46.0); Hemoglobin 8.6 g/dL (12.2-16.2); Lymphocytes % (auto) 15.2 % (10.0-50.0); Mean Corpuscular Hemoglobin 21.2 pg (28.0-32.0); Mean Corpuscular Volume 66.9 fL (80.0-100.0); Monocytes # (auto) 0.7 10 ^3/uL (0-1.3); Monocytes % (auto) 8.6 % (0.0-12.0); Neutrophils % (auto) 73.7 % (37.0-80.0); Red Blood Cells 4.06 10^6/uL (4.0-5.20); Red Cell Distribution Width 15.6 % (11.8-14.3)
[2023-11-24 06:32] LABS: Alanine Aminotransferase 23 U/L (7-40); Alkaline Phosphatase 86 U/L (46-116); Anion Gap 9 (5-15); BUN/Creatinine Ratio 10.1 (10.0-20.0); Blood Urea Nitrogen 8 mg/dL (9-23); Calcium 8.6 mg/dL (8.5-10.1); Carbon Dioxide 23 mmol/L (20-30); Chloride 104 mmol/L (98-107); Glucose 111 mg/dL (74-106); Potassium 3.3 mmol/L (3.5-5.1); Sodium 136 mmol/L (136-145)
[2023-11-24 06:33] LABS: Albumin 3.4 g/dL (3.2-4.8); Aspartate Aminotransferase 47 U/L (13-40); Bilirubin, Total 0.5 mg/dL (0.2-1.0); Total Protein 5.4 g/dL (5.7-8.2)
[2023-11-24 08:30] VITALS: BP 121/86; PULSE 86; RESP 18; TEMP 98.6; O2SAT 93
[2023-11-24 12:41] VITALS: BP 121/76; PULSE 92; RESP 17; TEMP 98.8; O2SAT 93
[2023-11-24 16:50] VITALS: BP 123/64; PULSE 80; RESP 18; TEMP 99.2; O2SAT 94
[2023-11-24 22:00] VITALS: BP 135/91; PULSE 86; RESP 20; TEMP 98.5; O2SAT 92
[2023-11-25 00:12] VITALS: BP 124/81; PULSE 80; RESP 18; TEMP 98.1; O2SAT 94
[2023-11-25 05:13] VITALS: BP 128/76; PULSE 79; RESP 16; TEMP 98.6; O2SAT 95
[2023-11-25 08:28] VITALS: BP 139/79; PULSE 85; RESP 18; TEMP 98.5; O2SAT 92
[2023-11-25 12:43] VITALS: BP 131/71; PULSE 82; RESP 18; TEMP 98.4; O2SAT 96
[2023-11-25 16:47] VITALS: BP 113/76; PULSE 78; RESP 19; TEMP 98.6; O2SAT 94
[2023-11-25 21:00] VITALS: BP 114/65; PULSE 82; RESP 24; TEMP 100; O2SAT 99
[2023-11-26] VITALS (7 sets, daily range): BP systolic 113–136; BP diastolic 57–86; PULSE 65–85; RESP 17–20; TEMP 97–99.5; O2SAT 92–100
[2023-11-26] MEDS ORDERED: CARI-579 PO (11:16)
[2023-11-26] MEDS ORDERED: ACET-1882 PO (11:16)
[2023-11-26] MEDS ORDERED: HYDR2TAB3 PO (11:16)
[2023-11-26] MEDS ORDERED: DOCU-265 PO (11:16)
[2023-11-26] MEDS ORDERED: MORPHINE SULFATE INJ 2 MG/ml SYRG IV ONE (23:30)
[2023-11-27] VITALS (7 sets, daily range): BP systolic 111–136; BP diastolic 62–85; PULSE 69–79; RESP 17–70; TEMP 37.1; O2SAT 93–97
[2023-11-27] MEDS: LACTULOSE 20Gm/30ML SOLN PO ONE (06:36)
== END 2023-11-27 18:38 | disposition home health service (06) | DRG 460 ==
LOC: SUR 08:37 → TELE 13:26 → TELE-CENTR 15:24 → CENTRAL 11-25 23:50
PROVIDERS: ADMIT Orthopaedic Surgery; ATTEND Internal Medicine
PROC: 0SG00AJ Fusion of Lumbar Vertebral Joint with Interbody Fusion Device, Posterior Approach, Anterior Column, Open Approach (ICD-10-PCS; principal; 2023-11-23)
PROC: 01NB0ZZ Release Lumbar Nerve, Open Approach (ICD-10-PCS; 2023-11-23)
PROC: 00NY0ZZ Release Lumbar Spinal Cord, Open Approach (ICD-10-PCS; 2023-11-23)
PROC: 4A11X4G Monitoring of Peripheral Nervous Electrical Activity, Intraoperative, External Approach (ICD-10-PCS; 2023-11-23)
DX: M48.061 Spinal stenosis, lumbar region without neurogenic claudication (principal); M54.16 Radiculopathy, lumbar region; E03.9 Hypothyroidism, unspecified; F32.A Depression, unspecified; F41.9 Anxiety disorder, unspecified; E78.5 Hyperlipidemia, unspecified; G89.29 Other chronic pain; K58.9 Irritable bowel syndrome, unspecified; E11.9 Type 2 diabetes mellitus without complications; I10 Essential (primary) hypertension; Z83.3 Family history of diabetes mellitus; Z82.49 Family history of ischemic heart disease and other diseases of the circulatory system; Z79.4 Long term (current) use of insulin
CPT/HCPCS: 36415; 72100; 76000; 80048; 80053; 80202; 81001; 82565; 82962; 84443; 85025; 85610; 85730; 86850; 86900; 86901; 87086; 97110; 97116; 97163; 97530; G0378; J0131; J1100; J1815; J2405; J2704; J7042

== ENCOUNTER 2023-11-29 01:48 | Emergency (ER) | payer OTHER ==
[~2023-11-29] VITALS: Ht 154.9 cm; Wt 71.5 kg
[~2023-11-29 01:48] MED LIST changes: +ACET-1882 PO; +AML5T GT; +CARI-579 PO; +CYCL-611 PO; +DOCU-265 PO; +HYDR-4798 PO; -HYDR1TAB97 PO; +HYDR2TAB3 PO; +HYDR50TA69 PO; +LEV100T PO; +LUBI24CA7 PO; +NALO1TAB4 PO; +PLEC3TAB2 PO
[2023-11-29 02:10] VITALS: BP 113/77; PULSE 94; RESP 18; O2SAT 98
== END 2023-11-29 02:38 | disposition left against medical advice (07) ==
LOC: ER 01:48
DX: T81.89XD Other complications of procedures, not elsewhere classified, subsequent encounter (principal); Z53.21 Procedure and treatment not carried out due to patient leaving prior to being seen by health care provider; Y92.89 Other specified places as the place of occurrence of the external cause

== ENCOUNTER 2024-01-15 10:34 | Emergency (ER) | payer OTHER ==
[~2024-01-15] VITALS: Ht 154.9 cm; Wt 67.0 kg
[2024-01-15 11:16] LABS: Urine Bacteria FEW /hpf (None Seen); Urine Blood Negative /uL (Negative); Urine Clarity Turbid (Clear); Urine Color Yellow (Yellow); Urine Mucus FEW (None Seen); Urine Protein, UAD 2+ (Negative); Urine Specific Gravity 1.035 (1.001-1.035); Urine Urobilinogen Normal (Negative); Urine WBC 2 /hpf (0 - 5)
[2024-01-15 11:16] LABS: Basophils # (auto) 0 10 ^3/uL (0-0.2); Eosinophils # (auto) 0.1 10 ^3/uL (0-0.8); Lymphocytes # (auto) 1.7 10 ^3/uL (0.4-5.4); Monocytes # (auto) 0.3 10 ^3/uL (0-1.3); Neutrophils # (auto) 3.6 10 ^3/uL (1.6-8.6); Nucleated Red Blood Cells % 0.1 %
[2024-01-15 11:18] LABS: Basophils % (auto) 0.5 % (0.0-2.0); Hematocrit 33.6 % (36.0-46.0); Hemoglobin 10.5 g/dL (12.2-16.2); Lymphocytes % (auto) 29.7 % (10.0-50.0); Mean Corpuscular Hgb Conc. 31.1 g/dL (32.0-36.0); Mean Corpuscular Volume 67.3 fL (80.0-100.0); Monocytes % (auto) 5.9 % (0.0-12.0); Neutrophils % (auto) 62.9 % (37.0-80.0); Red Blood Cells 4.99 10^6/uL (4.0-5.20); Red Cell Distribution Width 13.8 % (11.8-14.3); White Blood Cell 5.8 10^3/uL (4.4-10.8)
[2024-01-15 11:20] LABS: Chloride 106 mmol/L (98-107); Potassium 3.9 mmol/L (3.5-5.1); Sodium 137 mmol/L (136-145)
[2024-01-15 11:21] LABS: Anion Gap 4 (5-15); Calcium 9.5 mg/dL (8.5-10.1); Carbon Dioxide 27 mmol/L (20-30)
[2024-01-15] MEDS: chlordiazePOXIDE HCL 5 MG CAP PO ONE (11:21)
[2024-01-15 11:26] LABS: Blood Urea Nitrogen 12 mg/dL (9-23); Glucose 96 mg/dL (74-106)
[2024-01-15 11:41] LABS: Hypochromia Slight; Ovalocytes FEW; Platelet Estimate Adequate
[2024-01-15 12:18] LABS: BUN/Creatinine Ratio 12.4 (10.0-20.0)
[2024-01-15] MEDS: cefTRIAXone SOD 1,000 MG VL IM ONE (12:34)
[2024-01-15] MEDS: GASTROGRAFIN 120 ML SOL ONE (13:56)
[2024-01-15 14:15] VITALS: BP 108/73; PULSE 86; RESP 16; TEMP 97.9; O2SAT 98
[2024-01-15] MEDS: LACTULOSE 20Gm/30ML SOLN PO ONE (14:54)
== END 2024-01-15 14:54 | disposition home or self-care (01) ==
LOC: ER 10:34
DX: K56.7 Ileus, unspecified (principal); F41.9 Anxiety disorder, unspecified; F32.9 Major depressive disorder, single episode, unspecified; E11.9 Type 2 diabetes mellitus without complications; K21.9 Gastro-esophageal reflux disease without esophagitis; E78.5 Hyperlipidemia, unspecified; I10 Essential (primary) hypertension; Z98.890 Other specified postprocedural states; Z90.49 Acquired absence of other specified parts of digestive tract; Z79.899 Other long term (current) drug therapy
CPT/HCPCS: 36415; 74018; 80048; 81001; 85025; 96372; 99284; J0696; Q9963

== ENCOUNTER → 2024-03-04 | Outpatient (CLI) | payer OTHER ==
[2024-03-04 12:20] LABS: Anion Gap 7 (5-15); Carbon Dioxide 27 mmol/L (20-30); Chloride 106 mmol/L (98-107); Potassium 4.3 mmol/L (3.5-5.1); Sodium 140 mmol/L (136-145)
[2024-03-04 12:21] LABS: Calcium 9.7 mg/dL (8.7-10.4)
[2024-03-04 12:24] LABS: Creatinine, Urine 217.98 mg/dL (30.0-125.0)
[2024-03-04 12:26] LABS: BUN/Creatinine Ratio 9.3 (10.0-20.0); Blood Urea Nitrogen 9 mg/dL (9-23); Glucose 92 mg/dL (74-106)
== END | disposition home or self-care (01) ==
LOC: LAB 11:26
PROVIDERS: ATTEND Internal Medicine
DX: E11.65 Type 2 diabetes mellitus with hyperglycemia (principal)
CPT/HCPCS: 36415; 80048; 82043; 82570; 83036

== ENCOUNTER 2024-05-25 20:35 | Observation (INO) | payer OTHER ==
[~2024-05-25] VITALS: Ht 154.9 cm; Wt 75.1 kg
[~2024-05-25 20:35] MED LIST changes: -FLUO20TA36 PO; +FLUO20TA42 PO; +HYDR-4564 PO; -HYDR2TAB3 PO; -LEV100T PO; +LEVO-849 PO
[2024-05-25 21:25] LABS: Urine Bacteria None Seen /hpf (None Seen); Urine WBC None Seen /hpf (0 - 5)
[2024-05-25 21:30] LABS: Urine Blood Negative /uL (Negative); Urine Clarity Clear (Clear); Urine Color Light-Yellow (Yellow); Urine Protein, UAD TRACE (Negative); Urine Specific Gravity 1.019 (1.001-1.035); Urine Urobilinogen Normal (Negative)
[2024-05-25 21:33] VITALS: TEMP 98.1
[2024-05-25] MEDS: HYDROcodone-ACET 10/325MG TAB PO ONE (22:04)
[2024-05-25 22:18] VITALS: PULSE 86; RESP 16; O2SAT 97
[2024-05-25] MEDS: cloNIDine HCL 0.1 MG TAB PO ONE (22:35)
[2024-05-25 22:53] LABS: Eosinophils # (auto) 0 10 ^3/uL (0-0.8); Lymphocytes # (auto) 1.3 10 ^3/uL (0.4-5.4); Monocytes # (auto) 0.4 10 ^3/uL (0-1.3); Nucleated Red Blood Cells % 0.1 %; White Blood Cell 7.1 10^3/uL (4.4-10.8)
[2024-05-25 22:55] LABS: Basophils # (auto) 0.1 10 ^3/uL (0-0.2); Basophils % (auto) 0.9 % (0.0-2.0); Eosinophils % (auto) 0.5 % (0.0-7.0); Hematocrit 36.2 % (36.0-46.0); Hemoglobin 11.4 g/dL (12.2-16.2); Lymphocytes % (auto) 18.9 % (10.0-50.0); Mean Corpuscular Hemoglobin 20.9 pg (28.0-32.0); Mean Corpuscular Hgb Conc. 31.3 g/dL (32.0-36.0); Mean Corpuscular Volume 66.7 fL (80.0-100.0); Neutrophils # (auto) 5.2 10 ^3/uL (1.6-8.6); Neutrophils % (auto) 73.7 % (37.0-80.0); Platelet Count (auto) 370 10^3/uL (140-450); Red Blood Cells 5.43 10^6/uL (4.0-5.20); Red Cell Distribution Width 15.6 % (11.8-14.3)
[2024-05-25 23:07] LABS: Chloride 100 mmol/L (98-107); Potassium 3.7 mmol/L (3.5-5.1); Sodium 135 mmol/L (136-145)
[2024-05-25 23:08] LABS: Anion Gap 7 (5-15); Calcium 9.7 mg/dL (8.7-10.4); Carbon Dioxide 28 mmol/L (20-31)
[2024-05-25 23:13] LABS: BUN/Creatinine Ratio 8.2 (10.0-20.0); Blood Urea Nitrogen 9 mg/dL (9-23); Glucose 102 mg/dL (74-106)
[2024-05-25] MEDS ORDERED: MAALOX PLUS or MAALOX 30 ML PO PRN (23:45)
[2024-05-25] MEDS ORDERED: DOCUSATE SOD 100 MG CAP PO PRN (23:45)
[2024-05-25] MEDS ORDERED: TEMAZEPAM 15 MG CAP PO PRN (23:45)
[2024-05-25] MEDS ORDERED: ACETAMINOPHEN 325 MG TAB PO PRN (23:45)
[2024-05-25] MEDS ORDERED: ONDANSETRON HCL 4 MG/2 ML VIAL IV PRN (23:45)
[2024-05-25] MEDS ORDERED: DEXTROSE (50%) 50ML SYRG IV PRN (23:45)
[2024-05-26] MEDS: LISINOPRIL 5 MG TAB PO ONE
[2024-05-26] MEDS ORDERED: hydrALAZINE HCL 25 MG TAB PO PRN
[2024-05-26] MEDS ORDERED: LACTULOSE 20Gm/30ML SOLN PO PRN
[2024-05-26] MEDS: HYDROcodone-ACET 5/325MG TAB PO PRN (03:11)
[2024-05-26] MEDS: SODIUM CHLOR 0.9% PF (SALINE LOCK) 10ML VIAL/SYR IV SCH (06:00)
[2024-05-26] MEDS: ACCU-CHEK COMFORT CURVE STRIP VI SCH (06:50)
[2024-05-26] MEDS: LEVOTHYROXINE SODIUM 100 MCG TAB PO SCH (06:54)
[2024-05-26] MEDS: VENLAFAXINE HCL 37.5mg XR cap PO SCH (06:57)
[2024-05-26] MEDS: InsuLIN REG 1unit/0.01ml Soln (100units/ml) SC SCH (07:00)
[2024-05-26 09:08] VITALS: PULSE 90; RESP 15; O2SAT 95
[2024-05-26] MEDS: METOPROLOL TARTRATE 50 MG TAB PO SCH (10:00)
[2024-05-26] MEDS: LISINOPRIL 5 MG TAB PO SCH (10:00)
[2024-05-26 10:07] VITALS: BP 112/76; PULSE 79; RESP 20; O2SAT 94
[2024-05-26] MEDS ORDERED: LISI-275 PO (12:04)
[2024-05-26] MEDS ORDERED: METO1TAB77 PO (12:04)
[2024-05-26] MEDS ORDERED: [UNRECOGNIZED DRUG - CODE] XX (12:06)
[2024-05-26] MEDS ORDERED: InsuLIN REG 1unit/0.01ml Soln (100units/ml) SC SCH (22:00)
== END 2024-05-26 13:19 | disposition home or self-care (01) ==
LOC: ER 20:35 → OVERFLOW 23:40
PROVIDERS: ADMIT Internal Medicine; ATTEND Internal Medicine
DX: I16.0 Hypertensive urgency (principal); E11.9 Type 2 diabetes mellitus without complications; E03.9 Hypothyroidism, unspecified; F32.A Depression, unspecified; K21.9 Gastro-esophageal reflux disease without esophagitis; R04.0 Epistaxis; G43.909 Migraine, unspecified, not intractable, without status migrainosus; I10 Essential (primary) hypertension; E78.5 Hyperlipidemia, unspecified; F41.9 Anxiety disorder, unspecified; Z79.84 Long term (current) use of oral hypoglycemic drugs; Z88.0 Allergy status to penicillin; Z79.899 Other long term (current) drug therapy; Z90.49 Acquired absence of other specified parts of digestive tract
CPT/HCPCS: 36415; 70450; 80048; 81001; 82962; 84439; 84443; 85025; 93005; 96372; 99291; G0378; J1815

== ENCOUNTER 2024-06-25 13:44 | Emergency (ER) | payer OTHER ==
[~2024-06-25] VITALS: Ht 154.9 cm; Wt 72.7 kg
[~2024-06-25 13:44] MED LIST changes: +LISI-275 PO; +[UNRECOGNIZED DRUG - CODE] XX
--- NOTE | 2024-06-25 14:13 | ED.PDOC ---
HPI (NEURO) HPI Comments 59 year old female presents to the ED with chief complaint of headache. Patient reports that she is coming from Dr. Ruffin's office, being advised to come into the ED due to having a headache for the past 4 days with associated dizziness and frequent nose bleeds. Patient relays that her BP has been very high recently. Patient denies any N/V/D, chest pain, SOB, fever, chills, or syncope. 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 Family History Family History: Reviewed,noncontributory to illness Social History Smoker: Non-Smoker Alcohol: Denies ETOH Use Drugs: Denies Drug Use Lives In: Home Constitutional: denies: chills, diaphoresis, fatigue, fever, malaise, sweats, weakness, others EENTM: reports: nose bleeding; denies: blurred vision, double vision, ear bleeding, ear discharge, ear drainage, ear pain, ear ringing, eye pain, eye redness, hearing loss, mouth pain, mouth swelling, nasal discharge, nose congestion, nose pain, photophobia, tearing, throat pain, throat swelling, voice changes, others Respiratory: denies: cough, hemoptysis, orthopnea, SOB at rest, shortness of breath, SOB with excertion, stridor, wheezing, others Cardiovascular: denies: chest pain, dizzy spells, diaphoresis, Dyspnea on exertion, edema, irregular heart beat, left arm pain, lightheadedness, palpitations, PND, syncope, others Gastrointestinal: denies: abdomen distended, abdominal pain, blood streaked bowels, constipated, diarrhea, dysphagia, difficulty swallowing, hematemesis, melena, nausea, poor appetite, poor fluid intake, rectal bleeding, rectal pain, vomiting, others Genitourinary: denies: abnormal vagina bleeding, burning, dyspareunia, dysuria, flank pain, frequency, hematuria, incontinence, pain, , vagina discharge, urgency, others Neurological: reports: dizziness, headache; denies: fainting, left sided numbness, left sided weakness, numbness, paresthesia, pre-existing deficit, right sided numbness, right sided weakness, seizure, speech problems, tingling, tremors, weakness, others Musculoskeletal: denies: back pain, gout, joint pain, joint swelling, muscle pain, muscle stiffness, neck pain, others Integumetry: denies: bruises, change in color, change in hair/nails, dryness, laceration, lesions, lumps, rash, wounds, others Allergic/Immunocompromised: denies: Difficulty Healing, Frequent Infections, Hives, Itching, others Hematologic/Lymphatic: denies: anemia, blood clots, easy bleeding, easy bruising, swollen glands, others Endocrine: denies: excessive hunger, excessive sweating, excessive thirst, excessive urination, flushing, intolerance to cold, intolerance to heat, unexplained weight gain, unexplained weight loss, others Psychiatric: denies: anxiety, bipolar disorder, depression, hopeless, panic disorder, schizophrenia, sleepless, suicidal, others All Other Systems: Reviewed and Negative Physical Exam General Appearance: Moderate Distress, Normal HEENT: Normal ENT Inspection, PERRL/EOMI Neck: Full Range of Motion, Non-Tender, Normal, Normal Inspection Respiratory: Chest Non-Tender, Lungs Clear, No Accessory Muscle Use, No Respiratory Distress, Normal Breath Sounds Cardiovascular: No Edema, No JVD, No Murmur, No Gallop, Normal Peripheral Pulses, Regular Rate/Rhythm Breast Exam: Deferred Gastrointestinal: No Organomegaly, Non Tender, No Pulsatile Mass, Normal Bowel Sounds, Soft Genitalia: Deferred Pelvic: Deferred Rectal: Deferred Extremities: No calf tenderness, Normal capillary refill, Normal inspection, Normal range of motion, Non-tender, No pedal edema Musculoskeletal : Apperance: Normal Neurologic: Alert, landmen II-XII nml as Tested, No Motor Deficits, Normal Affect, Normal Mood, No Sensory Deficits Cerebellar Function: NOT DONE Reflexes: NOT DONE Skin: Dry, Normal Color, Warm Peripheral Pulses: 3+ Radial (R), 3+ Radial (L) Lymphatic: No Adenopathy Was a procedure done? Was a procedure done?: No Differential Diagnosis (SZ) Seizure: Psychogenic Seizure, Closed Head Injury, CVA/TIA X-Ray, Labs, Meds, VS Vital Signs Date Time Temp Pulse Resp B/P (MAP) Pulse Ox O2 Delivery O2 Flow Rate FiO2 06/25/24 14:38 157/102 06/25/24 14:30 97.1 71 16 157/102 (120) 99 Lab Test 06/25/24 14:09 Range/Units POC Glucose 58 L 70-106 mg/dl Current Medications Medications (Trade) Dose Ordered Sig/Vincenzo Route Start Time Stop Time Status Last Admin Clonidine HCl (Catapres Tablet) 0.2 mg ONCE ONCE PO 06/25/24 14:00 06/25/24 14:01 DC 06/25/24 14:38 Patient alert. Complaining of headache. Vitals stable. Answering questions. Blood pressure elevated. Was given clonidine. Blood sugar is low. Was given juice. Was given Cuthbert. Her primary care physician wanted the patient to be discharged. CT of the head reviewed does not show any acute changes. Spoke with her primary care physician. Explained to the patient. Was told to follow up with her primary care physician. Was told to come back if there is any problem. CT Head:FINDINGS: There is no evidence of acute intracranial hemorrhage, mass, mass effect midline shift. There is no hydrocephalus or extra-axial fluid collection. Ramirez-white matter differentiation is maintained.. The visualized paranasal sinuses and mastoid air cells are clear. The calvarium is intact. IMPRESSION: 1. No acute intracranial process. Images Reviewed?: Images reviewed and evaluated by me Time of 1ST Reevaluation: 15:09 Reevaluation 1ST: Unchanged Time of 2ND Reevaluation: 16:41 Reevaluation 2ND: Improved Patient Education/Counseling: Diagnosis, Treatment Family Education/Counseling: No Family Present Departure 1 Departure Time of Disposition: 14:20 Impression: Primary Impression: Headache Qualified Codes: R51.9 - Headache, unspecified Additional Impressions: Hypertension Qualified Codes: I10 - Essential (primary) hypertension Hypoglycemia Disposition: 01 HOME / SELF CARE / HOMELESS Condition: Good Discharged With: Self Critical Care Note Critical Care Time?: Yes (45 min-critical care time only) Stability Stability form required: No Heart Score Heart Score: Heart Score Response (Comments) Value History N/A 0 EKG N/A 0 Age N/A 0 Risk Factors N/A 0 Troponin N/A 0 Total 0 I personally scribed for HANY HURST MD ([email or web address]) on 06/25/24 at 14:13. Electronically submitted by Vernon Pickens ([email or web address]). I personally scribed for HANY HURST MD ([email or web address]) on 06/25/24 at 14:47. Electronically submitted by Vernon Pickens ([email or web address]). HANY HURST MD Jun 25, 2024 14:13
[2024-06-25 14:30] VITALS: BP 157/102; PULSE 71; RESP 16; O2SAT 99
--- NOTE | 2024-06-25 14:34 | DVH ---
EXAM: CT HEAD WITHOUT CONTRAST HISTORY: headache COMPARISON: CT HEAD WITHOUT CONTRAST on DOS: 05/25/24 TECHNIQUE: Axial images of the head were obtained and reformatted in coronal and sagittal planes. All CT scans at this medical facility are performed using dose modulation techniques as appropriate t o a performed exam including the following: Automated exposure control was utilized; adjustment of th e MA and/or KV according to patient size; and use of iterative reconstruction technique. CT Dose: CTDI volume is 60.97 mGy. Dose-length product is 1079.54 mGy*cm FINDINGS: There is no evidence of acute intracranial hemorrhage, mass, mass effect midline shift. There is no h ydrocephalus or extra-axial fluid collection. Ramirez-white matter differentiation is maintained.. The visualized paranasal sinuses and mastoid air cells are clear. The calvarium is intact. IMPRESSION: 1. No acute intracranial process. HS:Y
[2024-06-25] MEDS: cloNIDine HCL 0.1 MG TAB PO ONE (14:38)
[2024-06-25] MEDS ORDERED: HYDROcodone-ACET 10/325MG TAB PO ONE (16:45)
== END 2024-06-25 21:42 | disposition left against medical advice (07) ==
LOC: ER 13:44
DX: R51.9 Headache, unspecified (principal); I10 Essential (primary) hypertension; E11.65 Type 2 diabetes mellitus with hyperglycemia; K21.9 Gastro-esophageal reflux disease without esophagitis; E78.5 Hyperlipidemia, unspecified; F41.9 Anxiety disorder, unspecified; F32.A Depression, unspecified; Z90.49 Acquired absence of other specified parts of digestive tract
CPT/HCPCS: 70450; 82962

== ENCOUNTER → 2024-07-31 | Outpatient (CLI) | payer OTHER ==
[~2024-07-31] VITALS: Ht 154.9 cm; Wt 90.7 kg
[2024-07-31 08:55] LABS: Basophils # (auto) 0.1 10 ^3/uL (0-0.2); Eosinophils # (auto) 0.1 10 ^3/uL (0-0.8); Hemoglobin 11.5 g/dL (12.2-16.2); Mean Corpuscular Volume 69.6 fL (80.0-100.0); Monocytes # (auto) 0.3 10 ^3/uL (0-1.3)
[2024-07-31 08:58] LABS: Basophils % (auto) 1.2 % (0.0-2.0); Eosinophils % (auto) 1.3 % (0.0-7.0); Hematocrit 36.9 % (36.0-46.0); Lymphocytes # (auto) 2.1 10 ^3/uL (0.4-5.4); Lymphocytes % (auto) 44.7 % (10.0-50.0); Mean Corpuscular Hemoglobin 21.7 pg (28.0-32.0); Mean Corpuscular Hgb Conc. 31.1 g/dL (32.0-36.0); Monocytes % (auto) 5.9 % (0.0-12.0); Neutrophils # (auto) 2.2 10 ^3/uL (1.6-8.6); Neutrophils % (auto) 46.9 % (37.0-80.0); Nucleated Red Blood Cells % 0.1 %; Platelet Count (auto) 365 10^3/uL (140-450); Red Blood Cells 5.29 10^6/uL (4.0-5.20); Red Cell Distribution Width 16.1 % (11.8-14.3); White Blood Cell 4.8 10^3/uL (4.4-10.8)
[2024-07-31 09:13] LABS: INR 0.97 (0.9-1.15); Prothrombin Time 10.3 sec (9.3-11.8)
[2024-07-31 09:40] LABS: Alanine Aminotransferase 14 U/L (7-40); Albumin 4.3 g/dL (3.2-4.8); Alkaline Phosphatase 54 U/L (46-116); Anion Gap 5 (5-15); Aspartate Aminotransferase 21 U/L (13-40); BUN/Creatinine Ratio 7.1 (10.0-20.0); Calcium 9.9 mg/dL (8.7-10.4); Carbon Dioxide 30 mmol/L (20-31); Chloride 105 mmol/L (98-107); Glucose 97 mg/dL (74-106); Potassium 4.2 mmol/L (3.5-5.1); Sodium 140 mmol/L (136-145)
[2024-07-31 09:41] LABS: Bilirubin, Total 0.5 mg/dL (0.2-1.0); Total Protein 7.2 g/dL (5.7-8.2)
[2024-07-31 10:14] LABS: Blood Urea Nitrogen 8 mg/dL (9-23)
== END | disposition home or self-care (01) ==
LOC: LAB 08:35 → EDSTATUS 08-04 09:30
PROVIDERS: ATTEND Internal Medicine Gastroenterology
DX: K59.00 Constipation, unspecified (principal)
CPT/HCPCS: 36415; 80053; 85025; 85610; 85730

== ENCOUNTER → 2024-09-16 | Outpatient (CLI) | payer OTHER, MEDICAID ==
[~2024-09-16] MED LIST changes: -DOCU-265 PO; -HYDR-4564 PO; -HYDR-4798 PO; -LEVO75TA6 PO
[2024-09-16 08:32] LABS: Basophils # (auto) 0 10 ^3/uL (0-0.2); Eosinophils # (auto) 0.1 10 ^3/uL (0-0.8); Hemoglobin 11.2 g/dL (12.2-16.2); Lymphocytes # (auto) 1.7 10 ^3/uL (0.4-5.4); Monocytes # (auto) 0.3 10 ^3/uL (0-1.3); Red Cell Distribution Width 14.4 % (11.8-14.3)
[2024-09-16 08:34] LABS: Basophils % (auto) 0.6 % (0.0-2.0); Eosinophils % (auto) 1.2 % (0.0-7.0); Hematocrit 35.5 % (36.0-46.0); Lymphocytes % (auto) 30.1 % (10.0-50.0); Mean Corpuscular Hemoglobin 21.7 pg (28.0-32.0); Mean Corpuscular Hgb Conc. 31.4 g/dL (32.0-36.0); Mean Corpuscular Volume 68.9 fL (80.0-100.0); Monocytes % (auto) 5.8 % (0.0-12.0); Neutrophils # (auto) 3.6 10 ^3/uL (1.6-8.6); Neutrophils % (auto) 62.3 % (37.0-80.0); Platelet Count (auto) 408 10^3/uL (140-450); Red Blood Cells 5.15 10^6/uL (4.0-5.20); White Blood Cell 5.8 10^3/uL (4.4-10.8)
[2024-09-16 08:39] LABS: Platelet Estimate Adequate
[2024-09-16 08:40] LABS: Hypochromia Moderate
[2024-09-16 09:12] LABS: Alanine Aminotransferase 14 U/L (7-40); Alkaline Phosphatase 73 U/L (46-116); Anion Gap 9 (5-15); BUN/Creatinine Ratio 9.6 (10.0-20.0); Blood Urea Nitrogen 11 mg/dL (9-23); Carbon Dioxide 26 mmol/L (20-31); Chloride 104 mmol/L (98-107); Glucose 95 mg/dL (74-106); Potassium 3.5 mmol/L (3.5-5.1); Sodium 139 mmol/L (136-145)
[2024-09-16 09:13] LABS: Albumin 4.1 g/dL (3.2-4.8); Aspartate Aminotransferase 20 U/L (13-40); Total Protein 7.1 g/dL (5.7-8.2)
[2024-09-16 09:28] LABS: Bilirubin, Total 0.2 mg/dL (0.2-1.0)
[2024-09-16 10:47] LABS: Triglycerides 88 mg/dL (< 150)
[2024-09-16 10:56] LABS: Cholesterol 288 mg/dL (< 200); HDL Cholesterol 72 mg/dL (40-59); LDL Cholesterol 198 mg/dL (< 100)
== END | disposition home or self-care (01) ==
LOC: LAB 07:46
PROVIDERS: ATTEND Internal Medicine
DX: E11.42 Type 2 diabetes mellitus with diabetic polyneuropathy (principal); I10 Essential (primary) hypertension; E78.5 Hyperlipidemia, unspecified; E03.9 Hypothyroidism, unspecified
CPT/HCPCS: 36415; 80053; 80061; 82043; 83036; 84439; 84443; 85025

== ENCOUNTER → 2024-10-27 | Outpatient (CLI) | payer OTHER, MEDICAID ==
[2024-10-27 08:40] LABS: Basophils # (auto) 0.1 10 ^3/uL (0-0.2); Hemoglobin 10.5 g/dL (12.2-16.2); Monocytes # (auto) 0.3 10 ^3/uL (0-1.3); Neutrophils # (auto) 2.7 10 ^3/uL (1.6-8.6); White Blood Cell 5.2 10^3/uL (4.4-10.8)
[2024-10-27 08:42] LABS: Basophils % (auto) 1.1 % (0.0-2.0); Eosinophils # (auto) 0 10 ^3/uL (0-0.8); Eosinophils % (auto) 0.9 % (0.0-7.0); Hematocrit 34.1 % (36.0-46.0); Lymphocytes # (auto) 2.1 10 ^3/uL (0.4-5.4); Mean Corpuscular Hemoglobin 21.2 pg (28.0-32.0); Mean Corpuscular Hgb Conc. 30.8 g/dL (32.0-36.0); Monocytes % (auto) 5.4 % (0.0-12.0); Neutrophils % (auto) 52.6 % (37.0-80.0); Nucleated Red Blood Cells % 0.2 %; Platelet Count (auto) 359 10^3/uL (140-450); Red Blood Cells 4.95 10^6/uL (4.0-5.20); Red Cell Distribution Width 14.6 % (11.8-14.3)
[2024-10-27 08:50] LABS: Alanine Aminotransferase 14 U/L (7-40); Albumin 4.2 g/dL (3.2-4.8); Alkaline Phosphatase 73 U/L (46-116); Anion Gap 5 (5-15); Aspartate Aminotransferase 20 U/L (13-40); BUN/Creatinine Ratio 15.1 (10.0-20.0); Blood Urea Nitrogen 16 mg/dL (9-23); Calcium 9.7 mg/dL (8.7-10.4); Carbon Dioxide 29 mmol/L (20-31); Glucose 90 mg/dL (74-106); Potassium 4.2 mmol/L (3.5-5.1); Sodium 141 mmol/L (136-145); Total Protein 6.6 g/dL (5.7-8.2); Triglycerides 93 mg/dL (< 150)
[2024-10-27 08:51] LABS: Bilirubin, Total 0.4 mg/dL (0.2-1.0); Chloride 107 mmol/L (98-107); Cholesterol 170 mg/dL (< 200); HDL Cholesterol 60 mg/dL (40-59)
[2024-10-27 08:52] LABS: LDL Cholesterol 85 mg/dL (< 100)
== END | disposition home or self-care (01) ==
LOC: LAB 08:15
PROVIDERS: ATTEND Licensed Practical Nurse
DX: Z12.11 Encounter for screening for malignant neoplasm of colon (principal); I12.9 Hypertensive chronic kidney disease with stage 1 through stage 4 chronic kidney disease, or unspecified chronic kidney disease; E11.22 Type 2 diabetes mellitus with diabetic chronic kidney disease; N18.31 Chronic kidney disease, stage 3a; E11.69 Type 2 diabetes mellitus with other specified complication; E03.9 Hypothyroidism, unspecified
CPT/HCPCS: 36415; 80053; 80061; 82043; 82306; 83036; 84443; 85025

== ENCOUNTER → 2024-12-08 | Outpatient (CLI) | payer OTHER, MEDICAID ==
[2024-12-08 08:36] LABS: Basophils # (auto) 0 10 ^3/uL (0-0.2); Eosinophils # (auto) 0.1 10 ^3/uL (0-0.8); Hemoglobin 11.2 g/dL (12.2-16.2); Lymphocytes # (auto) 1.6 10 ^3/uL (0.4-5.4); White Blood Cell 5.4 10^3/uL (4.4-10.8)
[2024-12-08 08:39] LABS: Basophils % (auto) 0.7 % (0.0-2.0); Eosinophils % (auto) 2.1 % (0.0-7.0); Hematocrit 36.3 % (36.0-46.0); Lymphocytes % (auto) 29.6 % (10.0-50.0); Mean Corpuscular Hemoglobin 20.9 pg (28.0-32.0); Mean Corpuscular Hgb Conc. 30.7 g/dL (32.0-36.0); Mean Corpuscular Volume 68.2 fL (80.0-100.0); Monocytes # (auto) 0.3 10 ^3/uL (0-1.3); Monocytes % (auto) 6.1 % (0.0-12.0); Neutrophils # (auto) 3.4 10 ^3/uL (1.6-8.6); Neutrophils % (auto) 61.5 % (37.0-80.0); Nucleated Red Blood Cells % 0.1 %; Platelet Count (auto) 419 10^3/uL (140-450); Red Blood Cells 5.33 10^6/uL (4.0-5.20); Red Cell Distribution Width 14.5 % (11.8-14.3)
[2024-12-08 09:03] LABS: Alanine Aminotransferase 17 U/L (7-40); Albumin 4.3 g/dL (3.2-4.8); Alkaline Phosphatase 74 U/L (46-116); Anion Gap 11 (5-15); Aspartate Aminotransferase 16 U/L (13-40); BUN/Creatinine Ratio 17.3 (10.0-20.0); Blood Urea Nitrogen 19 mg/dL (9-23); Calcium 9.8 mg/dL (8.7-10.4); Carbon Dioxide 25 mmol/L (20-31); Chloride 105 mmol/L (98-107); Glucose 92 mg/dL (74-106); Potassium 4.1 mmol/L (3.5-5.1); Sodium 141 mmol/L (136-145); Triglycerides 149 mg/dL (< 150)
[2024-12-08 09:04] LABS: Bilirubin, Total 0.3 mg/dL (0.2-1.0); Cholesterol 329 mg/dL (< 200); HDL Cholesterol 71 mg/dL (40-59); LDL Cholesterol 241 mg/dL (< 100)
[2024-12-08 09:07] LABS: Creatinine, Urine 258.31 mg/dL (30.0-125.0)
[2024-12-08 10:01] LABS: Platelet Estimate Adequate
[2024-12-08 10:02] LABS: Hypochromia Slight
[2024-12-08 10:18] LABS: % Iron Saturation 27.6 % (15-50)
== END | disposition home or self-care (01) ==
LOC: LAB 08:00
PROVIDERS: ATTEND Licensed Practical Nurse
DX: I12.9 Hypertensive chronic kidney disease with stage 1 through stage 4 chronic kidney disease, or unspecified chronic kidney disease (principal); N18.31 Chronic kidney disease, stage 3a; Z12.11 Encounter for screening for malignant neoplasm of colon; M79.7 Fibromyalgia; E78.5 Hyperlipidemia, unspecified; R73.03 Prediabetes
CPT/HCPCS: 36415; 80053; 80061; 82043; 82570; 83540; 83550; 84443; 85025

== ENCOUNTER → 2024-12-23 | Outpatient (CLI) | payer OTHER, MEDICAID | END | disposition home or self-care (01) | LOC: LAB 09:58 | PROVIDERS: ATTEND Licensed Practical Nurse | DX: I12.9 Hypertensive chronic kidney disease with stage 1 through stage 4 chronic kidney disease, or unspecified chronic kidney disease (principal); N18.31 Chronic kidney disease, stage 3a; E78.5 Hyperlipidemia, unspecified; R73.03 Prediabetes; M79.7 Fibromyalgia | CPT/HCPCS: 82270 ==

== ENCOUNTER 2025-03-05 21:25 | Inpatient (IN) | payer MEDICARE, MEDICAID ==
[~2025-03-05] VITALS: Ht 154.9 cm; Wt 78.5 kg
--- NOTE | 2025-03-05 21:49 | ED.PDOC ---
HPI Allergic reaction HPI Comments 60-YEAR-OLD FEMALE PRESENTS TO THE ED WITH POSSIBLE ALLERGIC REACTION. PATIENT ATE FAMOUS [employer] COOKIES THIS MORNING, NOT REALIZING THERE WERE NUTS IN THEM. PATIENT'S UPPER LIP IS SEVERELY SWOLLEN, STATES SHE FEELS TIGHTENING IN HER THROAT. TOOK ONE BENADRYL ALSO STATES TOOK HER PRESCRIBED EPIPEN AT 0800AM, ONE AT 1500 WITHOUT RELIEF Chief Complaint: Allergic Reaction Time Seen by MD: 21:30 Primary Care Provider: DREW Oliveira Notes: Nurses Notes, Medications, Allergies Allergies: Coded Allergies: Penicillins (Verified Adverse Reaction, Unknown, 10/29/23) Uncoded Allergies: NUTS (Allergy, Severe, 06/12/23) NUT - UNSPECIFIED (Allergy, Unknown, Swelling, 11/21/23) Home Meds Active Scripts Acetaminophen (EQ ACETAMINOPHEN EXTRA ST) 500 Mg Tab, 500 MG OR Q8HP PRN for 4 Days, #12 TAB Prov:DEMETRIO SADLER 03/06/25 Blood Pressure Monitoring (3 SERIES BLOOD PRESSURE M) Monitor Mis, UNIT XX ONCE, #1 . Prov:URSZULA GUSMAN RESIDENT 05/26/24 Lisinopril (Lisinopril) 5 Mg Tab, 10 MG PO DAILY for 30 Days, #60 TAB Prov:URSZULA GUSMAN RESIDENT 05/26/24 Metoprolol Tartrate (Lopressor) 50 Mg Tab, 50 MG PO BID for 60 Days, #120 TAB Prov:URSZULA GUSMAN RESIDENT 05/26/24 Carisoprodol (Carisoprodol) 350 Mg Tab, 350 MG PO TID for 10 Days, #30 TAB Prov:MARKOS BLANCO NP 11/26/23 Acetaminophen (Acetaminophen) 325 Mg Tab, 650 MG PO Q6HP PRN for 10 Days, #80 TAB Prov:MARKOS BLANCO NP 11/26/23 Cyclobenzaprine HCl (Cyclobenzaprine Hydrochlo) 10 Mg Tab, 10 MG PO Q8HPRN PRN for 14 Days, #42 TAB 0 Refills Prov:KIRT TONEY MD 11/20/23 Sodium Phosphates (FLEET ENEMA SIX PACK) Enema Danielle, 1 BOTTLE RE DAILY PRN, #1 EA Prov:HARRIET MORAES MD 10/09/23 Magnesium Citrate (MAGNESIUM CITRATE) 100 Mg Tab, 300 MG OR DAILY PRN, #30 TAB Prov:HARRIET MORAES MD 10/09/23 Sucralfate (CARAFATE) 1 Gm Tab, 1 GM OR QIDACHS for 30 Days, #120 TAB Prov:CLEVE GUERRERO MD 05/06/22 Famotidine (Pepcid AC) 20 Mg Tab, 20 MG PO QHSP PRN for 20 Days, #20 TAB Prov:FLORIN BARONE MD 11/10/21 Docusate Sodium (Colace) 100 Mg Cap, 1 CAP PO BID, #30 CAP Prov:NIRMAL GONZALEZ MD 10/10/21 Dicyclomine Hcl (BENTYL CAPSULE) 10 Mg Cp, 1 CAP PO TID, #90 CAP 11 Refills Prov:NIRMAL GONZALEZ MD 10/10/21 Linaclotide Base (LINZESS) 290 Mcg Cap, 290 MCG OR DAILYPRN PRN for 30 Days, #30 CAP Prov:RADHA RUSSELL MD 04/06/21 Reported Medications Lubiprostone (Amitiza) 24 Mcg Cap, 24 MCG PO, CAP 11/22/23 Naloxegol Oxalate (Movantik) 25 Mg Tab, 25 MG PO, TAB 11/22/23 Hydroxyzine Hcl (Hydroxyzine Hcl) 50 Mg Tab, 50 MG PO for 30 Days, MG 11/22/23 Plecanatide (Trulance) 3 Mg Tab, 3 MG PO, TAB 11/22/23 Amlodipine Besylate (NORVASC TABLET) 5 Mg Tb, 2.5 MG GT, TAB 11/22/23 Levothyroxine Sodium (SYNTHROID TABLET) 100 Mcg Tb, 100 MCG PO, TAB 11/22/23 Atorvastatin Calcium (Lipitor) 40 Mg Tab, 40 MG PO, TAB 12/06/21 Polyethylene Glycol (MIRALAX 17GM PWD) 17 Gm Pw, 17 GRAMS PO DAILY, #527 GRAMS 11/27/21 Metoclopramide Hcl (Metoclopramide Hcl) 10 Mg Tab, 10 MG PO QAM for 30 Days, MG 09/20/21 Estradiol (Estradiol) 1 Mg Tab, 1 MG PO QAM, MG 09/20/21 Metformin Hydrochloride (Metformin Hcl) 500 Mg Tab, 500 MG PO IBID for 30 Days, MG 04/05/21 Ferrous Sulfate (FERROUS SULFATE) 325 Mg Tb, 325 MG PO BID, TAB 12/28/20 Diphenhydramine Hcl (Banophen) 25 Mg Tab, 50 MG PO DAILY, TAB 12/28/20 Omeprazole (Gnp Omeprazole) 20 Mg Tab, 1 TAB PO DAILY, #90 TAB 0 Refills 12/28/20 Ergocalciferol (VITAMIN D2) 2,000 Unit Tab, 57812 UNIT PO DAILY, TAB 12/28/20 Zolpidem Tartrate (Zolpidem Tartrate) 5 Mg Tab, 1 TAB PO QPM, #30 TAB 0 Refills 12/28/20 Simvastatin (Simvastatin) 40 Mg Tab, 1 TAB PO QPM, #30 TAB 0 Refills 12/28/20 Cetirizine Hcl (Zyrtec Allergy) 10 Mg Cap, 10 MG PO BID, CAP 12/28/20 Fluoxetine Hcl (Fluoxetine Hcl) 20 Mg Tab, 1 TAB PO DAILY, #90 TAB 0 Refills 12/28/20 Estrogens, Conjugated (PREMARIN TABLET) 0.625 Mg Tb, 1.25 MG PO DAILY, TAB 12/28/20 Quetiapine Fumerate (Seroquel) 400 Mg Tab, 2 TAB PO HS, TAB 08/16/17 Fluoxetine Hcl (Pmdd) (Selfemra) 20 Mg Cap, 3 CAP PO DAILY fluoxetine 20mg cap, take 3 capsule PO daily in AM 05/01/12 Fenofibrate (Tricor) 48 Mg Tab 05/01/12 Venlafaxine Hcl (Venlafaxine Hcl Er) 37.5 Mg Cap 05/01/12 Past Medical History PAST MEDICAL HISTORY: Anemia, Anxiety, Depression, DM, GERD, High Lipids, HTN Surgical History: 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[employer]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 History Family History Family History: Reviewed,noncontributory to illness Social History Smoker: Non-Smoker Alcohol: Denies ETOH Use Drugs: Denies Drug Use Lives In: Home Constitutional: denies: chills, diaphoresis, fatigue, fever, malaise, sweats, weakness, others EENTM: reports: others (Lips swollen); denies: blurred vision, double vision, ear bleeding, ear discharge, ear drainage, ear pain, ear ringing, eye pain, eye redness, hearing loss, mouth pain, mouth swelling, nasal discharge, nose bleeding, nose congestion, nose pain, photophobia, tearing, throat pain, throat swelling, voice changes Respiratory: reports: shortness of breath; denies: cough, hemoptysis, orthopnea, SOB at rest, SOB with excertion, stridor, wheezing, others Cardiovascular: reports: chest pain; denies: dizzy spells, diaphoresis, Dyspnea on exertion, edema, irregular heart beat, left arm pain, lightheadedness, palpitations, PND, syncope, others Gastrointestinal: denies: abdomen distended, abdominal pain, blood streaked bowels, constipated, diarrhea, dysphagia, difficulty swallowing, hematemesis, melena, nausea, poor appetite, poor fluid intake, rectal bleeding, rectal pain, vomiting, others Genitourinary: denies: abnormal vagina bleeding, burning, dyspareunia, dysuria, flank pain, frequency, hematuria, incontinence, pain, , vagina discharge, urgency, others Neurological: denies: dizziness, fainting, headache, left sided numbness, left sided weakness, numbness, paresthesia, pre-existing deficit, right sided numbness, right sided weakness, seizure, speech problems, tingling, tremors, weakness, others Musculoskeletal: denies: back pain, gout, joint pain, joint swelling, muscle pain, muscle stiffness, neck pain, others Integumetry: denies: bruises, change in color, change in hair/nails, dryness, laceration, lesions, lumps, rash, wounds, others Allergic/Immunocompromised: denies: Difficulty Healing, Frequent Infections, Hives, Itching, others Hematologic/Lymphatic: denies: anemia, blood clots, easy bleeding, easy bruising, swollen glands, others Endocrine: denies: excessive hunger, excessive sweating, excessive thirst, excessive urination, flushing, intolerance to cold, intolerance to heat, unexplained weight gain, unexplained weight loss, others Psychiatric: denies: anxiety, bipolar disorder, depression, hopeless, panic disorder, schizophrenia, sleepless, suicidal, others Physical Exam General Appearance: No Apparent Distress, Normal HEENT: Pharynx Normal, TMs Normal, Other (Moderate Upper and lower lip edema no noted oral edema) Neck: Full Range of Motion, Non-Tender Respiratory: Chest Non-Tender, Lungs Clear, No Accessory Muscle Use, No Respiratory Distress, Normal Breath Sounds Cardiovascular: No Edema, No JVD, No Murmur, No Gallop, Normal Peripheral Pulses, Regular Rate/Rhythm Breast Exam: Deferred Gastrointestinal: No Organomegaly, Non Tender, No Pulsatile Mass, Normal Bowel Sounds, Soft Genitalia: Deferred Pelvic: Deferred Rectal: Deferred Extremities: Normal capillary refill, Normal inspection, Normal range of motion, Non-tender, No pedal edema Musculoskeletal : Apperance: Normal Neurologic: Alert, No Motor Deficits, Normal Affect, Normal Mood, No Sensory Deficits Cerebellar Function: Normal Reflexes: Normal Skin: Dry, Normal Color, Warm Lymphatic: No Adenopathy Was a procedure done? Was a procedure done?: No Differential diagnosis (all) Differential Diagnosis: Anaphylaxis, Angioedema, Bronchospasm, Hypotension, Shock, Urticaria X-Ray, Labs, Meds, VS Vital Signs Date Time Temp Pulse Resp B/P (MAP) Pulse Ox O2 Delivery O2 Flow Rate FiO2 03/06/25 00:46 66 03/06/25 00:13 Room Air* 0 21 03/06/25 00:11 97.8 67 17 141/85 (103) 98 97.8 03/05/25 22:12 98 Room Air* 0 21 03/05/25 22:05 60 19 138/82 (100) 99 03/05/25 21:35 18 98 Room Air* 0 21 03/05/25 21:35 98.2 69 18 134/78 (96) 98 98.2 Lab Test 03/06/25 00:20 Range/Units White Blood Count 8.3 4.4-10.8 10^3/uL Red Blood Count 4.91 4.0-5.20 10^6/uL Hemoglobin 10.3 L 12.2-16.2 g/dL Hematocrit 33.4 L 36.0-46.0 % Mean Corpuscular Volume 67.9 L 80.0-100.0 fL Mean Corpuscular Hemoglobin 20.9 L 28.0-32.0 pg Mean Corpuscular Hemoglobin Concent 30.8 L 32.0-36.0 g/dL Red Cell Distribution Width 15.0 H 11.8-14.3 % Platelet Count 388 140-450 10^3/uL Mean Platelet Volume 7.7 6.9-10.8 fL Neutrophils (%) (Auto) 82.4 H 37.0-80.0 % Lymphocytes (%) (Auto) 15.2 10.0-50.0 % Monocytes (%) (Auto) 1.6 0.0-12.0 % Eosinophils (%) (Auto) 0.5 0.0-7.0 % Basophils (%) (Auto) 0.3 0.0-2.0 % Neutrophils # (Auto) 6.9 1.6-8.6 10 ^3/uL Lymphocytes # (Auto) 1.3 0.4-5.4 10 ^3/uL Monocytes # (Auto) 0.1 0-1.3 10 ^3/uL Eosinophils # (Auto) 0 0-0.8 10 ^3/uL Basophils # (Auto) 0 0-0.2 10 ^3/uL Nucleated Red Blood Cells 0.1 % Sodium Level 141 136-145 mmol/L Potassium Level 4.2 3.5-5.1 mmol/L Chloride Level 108 H 98-107 mmol/L Carbon Dioxide Level 25 20-31 mmol/L Anion Gap 8 5-15 Blood Urea Nitrogen 14 9-23 mg/dL Creatinine 0.92 0.550-1.02 mg/dL Glomerular Filtration Rate Calc 71 >90 mL/min BUN/Creatinine Ratio 15.2 10.0-20.0 Serum Glucose 121 H 74-106 mg/dL Calcium Level 8.7 8.7-10.4 mg/dL Total Bilirubin 0.2 0.2-1.0 mg/dL Aspartate Amino Transferase (AST) 20 13-40 U/L Alanine Aminotransferase (ALT) 11 7-40 U/L Alkaline Phosphatase 74 46-116 U/L Total Protein 6.9 5.7-8.2 g/dL Albumin 4.3 3.2-4.8 g/dL Current Medications Medications (Trade) Dose Ordered Sig/Vincenzo Route Start Time Stop Time Status Last Admin Sodium Chloride 1,000 ml @ 1,000 mls/hr Q1H ONCE IV 03/05/25 21:45 03/05/25 22:44 DC 03/05/25 22:01 Methylprednisolone Sodium Succinate (Solu Medrol) 125 mg ONCE ONCE IV 03/05/25 21:45 03/05/25 21:46 DC 03/05/25 22:01 Famotidine (Pepcid Injection) 20 mg ONCE ONCE IV 03/05/25 21:45 03/05/25 21:46 DC 03/05/25 22:01 Epinephrine HCl 0.1 mg ONCE ONCE SC 03/05/25 23:45 03/05/25 23:46 DC 03/05/25 23:47 X-Ray, Labs, Meds, VS Comment COURSE: EXTERNAL MEDICAL RECORDS REVIEWED: [NONE] INDEPENDENT HISTORIANS: [NONE] SOCIAL DETERMINANTS OF HEALTH: [NONE] LABS ORDERED: CBC AND CMP REVIEWED AND INTERPRETED RESULTS: IMAGING ORDERED: CHEST X-RAY Chest x-ray shows no acute cardiopulmonary findings TREATMENTS ORDERED: Solu-Medrol 125 mg IV push Normal saline 1000 mL bolus Pepcid 20 mg IV push Epinephrine 0.1 mg subQ PROCEDURES PERFORMED: EKG shows no acute ectopy or ST elevation shows normal sinus CRITICAL CARE TIME: NONE PLAN: I HAVE DISCUSSED TREATMENT PLAN AND ADMISSION, SHE AGREES WITH THE PLAN OF CARE AND DISPOSITION. PATIENT TO BE ADMITTED FOR ALLERGIC REACTION, AND MONITOR FOR COMPROMISED AIRWAY. Time of 1ST Reevaluation: 21:48 Reevaluation 1ST: Unchanged Time of 2ND Reevaluation: 00:30 Reevaluation 2ND: Unchanged Patient Education/Counseling: Diagnosis, Treatment, Prognosis, Need For Follow Up Family Education/Counseling: No Family Present SEPSIS Sepsis Screen Physician Orders Electrocardigram (03/06/25 00:14) Chest Portable (03/06/25 00:14) Methylprednisolone Sod Succ (Solu Medrol (03/06/25 06:00) Famotidine Injection (Pepcid Injection) (03/06/25 10:00) Consistent Carb(Ccho)Diabetes (03/06/25 Breakfast) Amlodipine Tablet (Norvasc Tablet) (03/06/25 10:00) Hydralazine Injection (Apresoline Inject (03/06/25 02:45) Atorvastatin (Lipitor) (03/06/25 22:00) Levothyroxine Tablet (Synthroid Tablet) (03/06/25 06:00) Diphenhdramine Injection (Benadryl Injec (03/06/25 02:45) Glucose Blood (Accu-Chek Comfort Curve T (03/06/25 07:00) Insulin R (Human) (Insulin R) (03/06/25 07:00) Dextrose 50% Syringe (03/06/25 02:45) Allergies (03/06/25 02:31) Code Status (03/06/25 02:31) Sodium Chloride Lock (Saline Lock Ns) (03/06/25 06:00) Oxygen Per Hour (03/06/25 02:31) Hydrocodone-Acet 5/325mg Tab ([place]monson (03/06/25 02:45) Ondansetron Hcl (Zofran) (03/06/25 02:45) Docusate Sodium Capsule (Colace Capsule) (03/06/25 02:45) Complete Blood Count (03/07/25 04:00) Comprehensive Metabolic Panel (03/07/25 04:00) Cardiac Diet-2gna,Lofat,Lochol (03/06/25 Breakfast) Condition: Serious (03/06/25 02:31) Acetaminophen Tablet (Tylenol Tablet) (03/06/25 02:45) Bedrest With Bathroom Privileg (03/06/25 02:31) Sequential Compression Device (03/06/25 ) Vital Signs Date Time Temp Pulse Resp B/P (MAP) Pulse Ox O2 Delivery O2 Flow Rate FiO2 03/06/25 00:46 66 03/06/25 00:13 Room Air* 0 21 03/06/25 00:11 97.8 67 17 141/85 (103) 98 97.8 03/05/25 22:12 98 Room Air* 0 21 03/05/25 22:05 60 19 138/82 (100) 99 03/05/25 21:35 18 98 Room Air* 0 21 03/05/25 21:35 98.2 69 18 134/78 (96) 98 98.2 Laboratory Tests Test 03/06/25 00:20 White Blood Count 8.3 10^3/uL (4.4-10.8) Medications Medications Dose Ordered Sig/Vincenzo Route Start Time Stop Time Status Last Admin Dose Admin Epinephrine HCl 0.1 mg ONCE ONCE SC 03/05/25 23:45 03/05/25 23:46 DC 03/05/25 23:47 Famotidine 20 mg ONCE ONCE IV 03/05/25 21:45 03/05/25 21:46 DC 03/05/25 22:01 Methylprednisolone Sodium Succinate 125 mg ONCE ONCE IV 03/05/25 21:45 03/05/25 21:46 DC 03/05/25 22:01 Sodium Chloride 1,000 ml @ 1,000 mls/hr Q1H ONCE IV 03/05/25 21:45 03/05/25 22:44 DC 03/05/25 22:01 Departure 1 Departure Time of Disposition: 01:12 Impression: Primary Impression: Allergic reaction Qualified Codes: T78.40XA - Allergy, unspecified, initial encounter Additional Impression: Facial swelling Disposition: ADMITTED INPATIENT Condition: Stable e-Prescriptions Acetaminophen (EQ ACETAMINOPHEN EXTRA ST) 500 Mg Tab 500 MG OR Q8HP PRN for 4 Days, #12 TAB Prov: DEMETRIO SADLER 03/06/25 Discharged With: Self Critical Care Note Critical Care Time?: No Stability Stability form required: No DEMETRIO SADLER Mar 05, 2025 21:49
[2025-03-05] MEDS: SODIUM CHLORIDE 0.9% 1,000 ML IV ONE (22:01)
[2025-03-05] MEDS: FAMOTIDINE (10MG/ML) 2ML VL IV ONE (22:01)
[2025-03-05] MEDS: methylPREDNISolone SOD SUCC 125 MG/2 ML VL IV ONE (22:01)
[2025-03-05 22:12] VITALS: O2SAT 98
[2025-03-06] VITALS (7 sets, daily range): BP systolic 127–139; BP diastolic 62–85; PULSE 64–82; RESP 14–20; TEMP 98.2–98.6; O2SAT 96–99
[2025-03-06 00:38] LABS: Nucleated Red Blood Cells % 0.1 %
[2025-03-06 00:39] LABS: Hematocrit 33.4 % (36.0-46.0); Hemoglobin 10.3 g/dL (12.2-16.2); Mean Corpuscular Hemoglobin 20.9 pg (28.0-32.0); Mean Corpuscular Volume 67.9 fL (80.0-100.0)
[2025-03-06 00:56] LABS: Alanine Aminotransferase 11 U/L (7-40); Albumin 4.3 g/dL (3.2-4.8); Alkaline Phosphatase 74 U/L (46-116); Anion Gap 8 (5-15); BUN/Creatinine Ratio 15.2 (10.0-20.0); Blood Urea Nitrogen 14 mg/dL (9-23); Calcium 8.7 mg/dL (8.7-10.4); Carbon Dioxide 25 mmol/L (20-31); Potassium 4.2 mmol/L (3.5-5.1); Sodium 141 mmol/L (136-145); Total Protein 6.9 g/dL (5.7-8.2)
[2025-03-06 00:57] LABS: Bilirubin, Total 0.2 mg/dL (0.2-1.0); Chloride 108 mmol/L (98-107); Glucose 121 mg/dL (74-106)
--- NOTE | 2025-03-06 01:07 | DVH ---
CHEST RADIOGRAPH Indication: CHEST PAIN AND SOB Technique: Single frontal view of the chest was obtained COMPARISON: None FINDINGS: Lines and Tubes: None Lungs: Clear Pleura: No effusion. No pneumothorax. Cardiomediastinal contours: Unremarkable Bones: Unremarkable IMPRESSION: 1. No acute disease.
[2025-03-06] MEDS ORDERED: ACET-1341 OR (01:23)
[2025-03-06] MEDS ORDERED: ACETAMINOPHEN 325 MG TAB PO PRN (02:45)
[2025-03-06] MEDS ORDERED: DEXTROSE (50%) 50ML SYRG IV PRN (02:45)
[2025-03-06] MEDS ORDERED: ONDANSETRON HCL 4 MG/2 ML VIAL IV PRN (02:45)
[2025-03-06] MEDS ORDERED: hydrALAZINE HCL 20 MG/ML VL IV PRN (02:45)
--- NOTE | 2025-03-06 03:12 | DVHHP2 ---
History of Present Illness Reason for Visit: Allergic reaction History of Present Illness The patient is a 60-year-old female with multiple past medical history including anxiety, depression, DM, and hypertension who presented to [facility] ED for evaluation of allergic reaction. Patient reports she ate gio cookies this morning not realizing that were nut in them, patient started experiencing upper lip severe swelling, associated with itching in her throat. Patient states she took Benadryl and also her prescribed EpiPen at home prior to visiting ED. patient was seen and evaluated in the ED, patient was seen and evaluated in the ED, laboratory data shows WBC 8.3, hemoglobin 10.3, hematocrit 33.4, platelets 388, sodium 141, potassium 4.2, BUN 14, creatinine 0.92, glucose 121, calcium 8.7, blood pressure 141/85, heart rate 66, temperature 97.8 F, O2 saturation 98% on room air. Chest x-ray shows no acute disease. Patient was given IV Solu-Medrol, IV Benadryl, please see medication orders section in the computer. On my assessment, patient denies chest pain, no dizziness, no headache, no shortness of breath, no nausea, no vomiting, no fever, no chills. Patient was admitted for further evaluation and medical management. Past Medical History Anemia, Anxiety, Depression, DM, GERD, High Lipids, HTN Past Surgical History Cholecystectomy Family History Reviewed, noncontributory to the management of this case. Past Social History The patient lives at home, denies smoking, alcohol or illicit drugs abuse. Review of Systems Constitutional: No: Fever, Chills, Sweats, Weakness, Malaise, Other Eyes: No: Pain, Vision change, Conjunctivae inflammation, Eyelid inflammation, Other, Redness ENT: Mouth pain (Lips pain), Other (Swollen lips); No: Ear pain, Ear discharge, Nose pain, Nose discharge, Nose congestion, Mouth swelling, Throat pain, Throat swelling Respiratory: Shortness of breath; No: Cough, Dry, SOB with excertion, Wheezing, Hemoptysis, Pleuritic Pain, Sputum, Wheezing, Other Cardiovascular: Chest Pain; No: Palpitations, Orthopnea, Paroxysmal Noc. Dyspnea, Edema, Lt Headedness, Other Gastrointestinal: No: Nausea, Vomiting, Abdominal Pain, Diarrhea, Constipation, Melena, Hematochezia, Other Genitourinary: No Dysuria, No Frequency, No Incontinence, No Hematuria, No Retention, No Other Musculoskeletal: No: other, neck pain, shoulder pain, arm pain, back pain, hand pain, leg pain, foot pain Skin: No: Rash, Lesions, Jaundice, Bruising, Other Neurological: No: Weakness, Numbness, Incoordination, Change in speech, Confusion, Seizures, Other Allergies: Coded Allergies: Penicillins (Verified Adverse Reaction, Unknown, 10/29/23) Uncoded Allergies: NUTS (Allergy, Severe, 06/12/23) NUT - UNSPECIFIED (Allergy, Unknown, Swelling, 11/21/23) Medications Current Medications Medications Dose Ordered Sig/Vincenzo Route Start Time Stop Time Status Last Admin Dose Admin Methylprednisolone Sodium Succinate 40 mg Q8HR IV 03/06/25 06:00 Famotidine 20 mg Q12HR IV 03/06/25 10:00 Amlodipine Besylate 5 mg DAILY PO 03/06/25 10:00 Hydralazine HCl 10 mg Q6HP PRN IV 03/06/25 02:45 Atorvastatin Calcium 40 mg HS PO 03/06/25 22:00 Levothyroxine Sodium 100 mcg QAM@0600 PO 03/06/25 06:00 Diphenhydramine HCl 25 mg Q4HP PRN IV 03/06/25 02:45 Diagnostic Test (Pha) 1 strip ACHS 03/06/25 07:00 Insulin Human Regular ACHS SC 03/06/25 07:00 Dextrose 50 ml UD PRN IV 03/06/25 02:45 Sodium Chloride 10 ml Q8HR IV 03/06/25 06:00 Acetaminophen/ Hydrocodone Bitart 1 tab Q4HP PRN PO 03/06/25 02:45 Ondansetron HCl 4 mg Q4HP PRN IV 03/06/25 02:45 Docusate Sodium 100 mg BIDPRN PRN PO 03/06/25 02:45 Acetaminophen 650 mg Q6HP PRN PO 03/06/25 02:45 Exam Vital Signs Vital Signs Date Time Temp Pulse Resp B/P (MAP) Pulse Ox O2 Delivery O2 Flow Rate FiO2 03/06/25 00:46 66 03/06/25 00:13 Room Air* 0 21 03/06/25 00:11 97.8 17 141/85 (103) 98 97.8 General Appearance: Alert, Oriented X3, Cooperative, No acute distress HEENT: Atraumatic, PERRLA, EOMI, Mucous membr. moist/pink Respiratory: Clear to auscultation, Normal air movement Cardiovascular: Regular rate, Normal S1, Normal S2, No murmurs Abdominal: Normal bowel sounds, Soft, No tenderness, No hepatospenomegaly, No masses Extremities: No clubbing, No cyanosis, No edema, Normal pulses, No tenderness/swelling Skin: No rashes, No breakdown, No significant lesion Neuro: Normal gait, Normal speech, Strength at 5/5 X4 ext, Normal tone, Sensation intact, Cranial nerves 3-12 NL, Reflexes 2+ Psych/Mental Status: Mental status NL, Mood NL Labs/Xrays Labs Test 03/06/25 00:20 Range/Units White Blood Count 8.3 4.4-10.8 10^3/uL Red Blood Count 4.91 4.0-5.20 10^6/uL Hemoglobin 10.3 L 12.2-16.2 g/dL Hematocrit 33.4 L 36.0-46.0 % Mean Corpuscular Volume 67.9 L 80.0-100.0 fL Mean Corpuscular Hemoglobin 20.9 L 28.0-32.0 pg Mean Corpuscular Hemoglobin Concent 30.8 L 32.0-36.0 g/dL Red Cell Distribution Width 15.0 H 11.8-14.3 % Platelet Count 388 140-450 10^3/uL Mean Platelet Volume 7.7 6.9-10.8 fL Neutrophils (%) (Auto) 82.4 H 37.0-80.0 % Lymphocytes (%) (Auto) 15.2 10.0-50.0 % Monocytes (%) (Auto) 1.6 0.0-12.0 % Eosinophils (%) (Auto) 0.5 0.0-7.0 % Basophils (%) (Auto) 0.3 0.0-2.0 % Neutrophils # (Auto) 6.9 1.6-8.6 10 ^3/uL Lymphocytes # (Auto) 1.3 0.4-5.4 10 ^3/uL Monocytes # (Auto) 0.1 0-1.3 10 ^3/uL Eosinophils # (Auto) 0 0-0.8 10 ^3/uL Basophils # (Auto) 0 0-0.2 10 ^3/uL Nucleated Red Blood Cells 0.1 % Sodium Level 141 136-145 mmol/L Potassium Level 4.2 3.5-5.1 mmol/L Chloride Level 108 H 98-107 mmol/L Carbon Dioxide Level 25 20-31 mmol/L Anion Gap 8 5-15 Blood Urea Nitrogen 14 9-23 mg/dL Creatinine 0.92 0.550-1.02 mg/dL Glomerular Filtration Rate Calc 71 >90 mL/min BUN/Creatinine Ratio 15.2 10.0-20.0 Serum Glucose 121 H 74-106 mg/dL Calcium Level 8.7 8.7-10.4 mg/dL Total Bilirubin 0.2 0.2-1.0 mg/dL Aspartate Amino Transferase (AST) 20 13-40 U/L Alanine Aminotransferase (ALT) 11 7-40 U/L Alkaline Phosphatase 74 46-116 U/L Total Protein 6.9 5.7-8.2 g/dL Albumin 4.3 3.2-4.8 g/dL PATIENT: AMBROSE MOORE V ACCT: [id number] UNIT: [id number] : 1965 LOC: ER ROOM / BED: / AGE / SEX: 60 / F ADM STATUS: REG ER SERVICE [id number] ORDERING PHYSICIAN: DEMETRIO SADLER PROCEDURE(s): CXRP - CHEST PORTABLE REASON: CHEST PAIN AND SOB ORDER NUMBER(s): [id number], ACCESSION NUMBER(s): [id number] CHEST RADIOGRAPH Indication: CHEST PAIN AND SOB Technique: Single frontal view of the chest was obtained COMPARISON: None FINDINGS: Lines and Tubes: None Lungs: Clear Pleura: No effusion. No pneumothorax. Cardiomediastinal contours: Unremarkable Bones: Unremarkable IMPRESSION: 1. No acute disease. SEPSIS Sepsis Screen Date sepsis recognized/suspect: Mar 06, 2025 Time Sepsis recognized/suspect: 0000 Recent Procedure: No On Antibiotic Therapy: No Respiratory Rate >20: No Heart Rate >90: No Temp<36 C (96.8 F) or >38.3 C: No SBP <90 or MAP <65 mmHG: No New Acute Mental Status Change: No Is the patient on CPAP, BIPAP,: No Physician Orders Electrocardigram (03/06/25 00:14) Chest Portable (03/06/25 00:14) Complete Blood Count (03/06/25 04:00) Comprehensive Metabolic Panel (03/06/25 04:00) Methylprednisolone Sod Succ (Solu Medrol (03/06/25 06:00) Famotidine Injection (Pepcid Injection) (03/06/25 10:00) Consistent Carb(Ccho)Diabetes (03/06/25 Breakfast) Amlodipine Tablet (Norvasc Tablet) (03/06/25 10:00) Hydralazine Injection (Apresoline Inject (03/06/25 02:45) Atorvastatin (Lipitor) (03/06/25 22:00) Thyroid Stimulating Hormone (03/06/25 02:31) Levothyroxine Tablet (Synthroid Tablet) (03/06/25 06:00) Diphenhdramine Injection (Benadryl Injec (03/06/25 02:45) Glucose Blood (Accu-Chek Comfort Curve T (03/06/25 07:00) Insulin R (Human) (Insulin R) (03/06/25 07:00) Dextrose 50% Syringe (03/06/25 02:45) Allergies (03/06/25 02:31) Code Status (03/06/25 02:31) Sodium Chloride Lock (Saline Lock Ns) (03/06/25 06:00) Oxygen Per Hour (03/06/25 02:31) Hydrocodone-Acet 5/325mg Tab (Henderson 5/32 (03/06/25 02:45) Ondansetron Hcl (Zofran) (03/06/25 02:45) Docusate Sodium Capsule (Colace Capsule) (03/06/25 02:45) Complete Blood Count (03/07/25 04:00) Comprehensive Metabolic Panel (03/07/25 04:00) Cardiac Diet-2gna,Lofat,Lochol (03/06/25 Breakfast) Condition: Serious (03/06/25 02:31) Acetaminophen Tablet (Tylenol Tablet) (03/06/25 02:45) Bedrest With Bathroom Privileg (03/06/25 02:31) Sequential Compression Device (03/06/25 ) Vital Signs Date Time Temp Pulse Resp B/P (MAP) Pulse Ox O2 Delivery O2 Flow Rate FiO2 03/06/25 00:46 66 03/06/25 00:13 Room Air* 0 21 03/06/25 00:11 97.8 67 17 141/85 (103) 98 97.8 03/05/25 22:12 98 Room Air* 0 21 03/05/25 22:05 60 19 138/82 (100) 99 03/05/25 21:35 18 98 Room Air* 0 21 03/05/25 21:35 98.2 69 18 134/78 (96) 98 98.2 Laboratory Tests Test 03/06/25 00:20 White Blood Count 8.3 10^3/uL (4.4-10.8) Medications Medications Dose Ordered Sig/Vincenzo Route Start Time Stop Time Status Last Admin Dose Admin Epinephrine HCl 0.1 mg ONCE ONCE SC 03/05/25 23:45 03/05/25 23:46 DC 03/05/25 23:47 0.1 MG Famotidine 20 mg ONCE ONCE IV 03/05/25 21:45 03/05/25 21:46 DC 03/05/25 22:01 20 MG Methylprednisolone Sodium Succinate 125 mg ONCE ONCE IV 03/05/25 21:45 03/05/25 21:46 DC 03/05/25 22:01 125 MG Sodium Chloride 1,000 ml @ 1,000 mls/hr Q1H ONCE IV 03/05/25 21:45 03/05/25 22:44 DC 03/05/25 22:01 1,000 MLS/HR Assessment/Plan Assessment/Plan Allergic reaction Facial swelling Allergy, unspecified, initial encounter Plan 1. Admit to telemetry unit 2. Breathing treatment 3. Pain control management 4. Management of fluids and electrolytes 5. Consultation for hospitalist 6. Diagnostic tests chest x-ray 7. DVT prophylaxis on SCDs 8. Repeat labs CBC, CMP in a.m. 9. Continue with current medical management 10. Treatment plan discussed with patient and RN. Patient verbalized understanding. Plan discussed with: Patient, Other (RN) My Orders Orders - PACO KEARNS DNP Procedure Category Date Status Time Complete Blood Count LAB 03/06/25 Logged 04:00 Comprehensive LAB 03/06/25 Logged Metabolic Panel 04:00 Methylprednisolone PHA 03/06/25 In Process Sod Succ (Solu Medrol 06:00 Famotidine Injection PHA 03/06/25 In Process (Pepcid Injection) 10:00 Consistent DIET 03/06/25 Transmitted Carb(Ccho)Diabetes Breakfast Amlodipine Tablet PHA 03/06/25 In Process (Norvasc Tablet) 10:00 Hydralazine Injection PHA 03/06/25 In Process (Apresoline Inject 02:45 Atorvastatin (Lipitor) PHA 03/06/25 In Process 22:00 Thyroid Stimulating LAB 03/06/25 Logged Hormone 02:31 Levothyroxine Tablet PHA 03/06/25 In Process (Synthroid Tablet) 06:00 Diphenhdramine PHA 03/06/25 In Process Injection (Benadryl 02:45 Glucose Blood PHA 03/06/25 In Process (Accu-Chek Comfort 07:00 Insulin R (Human) PHA 03/06/25 In Process (Insulin R) 07:00 Dextrose 50% Syringe PHA 03/06/25 In Process 02:45 Allergies RAFAELA 03/06/25 In Process 02:31 Code Status CODE 03/06/25 Transmitted 02:31 Sodium Chloride Lock PHA 03/06/25 In Process (Saline Lock Ns) 06:00 Oxygen Per Hour RT 03/06/25 Transmitted 02:31 Hydrocodone-Acet PHA 03/06/25 In Process 5/325mg Tab (Henderson 02:45 Ondansetron Hcl PHA 03/06/25 In Process (Zofran) 02:45 Docusate Sodium PHA 03/06/25 In Process Capsule (Colace 02:45 Complete Blood Count LAB 03/07/25 Verified 04:00 Comprehensive LAB 03/07/25 Verified Metabolic Panel 04:00 Cardiac DIET 03/06/25 Transmitted Diet-2gna,Lofat,Lochol Breakfast Condition: Serious RAFAELA 03/06/25 In Process 02:31 Acetaminophen Tablet PHA 03/06/25 In Process (Tylenol Tablet) 02:45 Bedrest With Bathroom RAFAELA 03/06/25 In Process Privileg 02:31 Sequential RAFAELA 03/06/25 In Process Compression Device Problem List: (1) Allergic reaction (2) Facial swelling (3) Allergy, unspecified, initial encounter Date of Service: Mar 06, 2025 Billing Provider: PACO KEARNS DNP Common Visit Codes: [id number] INP/OBS CARE (HIGH) PACO KEARNS DNP Mar 06, 2025 03:12
[2025-03-06] MEDS ORDERED: MORPHINE SULFATE INJ 2 MG/ml SYRG IV PRN (03:15)
[2025-03-06] MEDS ORDERED: NITROGLYCERIN 0.4 MG SL TAB SL PRN (03:15)
[2025-03-06 04:23] LABS: Hematocrit 32.8 % (36.0-46.0); Hemoglobin 10.4 g/dL (12.2-16.2); Mean Corpuscular Hemoglobin 21.1 pg (28.0-32.0); Mean Corpuscular Volume 67.0 fL (80.0-100.0); Nucleated Red Blood Cells % 0.1 %
[2025-03-06 04:39] LABS: Alanine Aminotransferase 10 U/L (7-40); Albumin 4.2 g/dL (3.2-4.8); Alkaline Phosphatase 68 U/L (46-116); Anion Gap 8 (5-15); BUN/Creatinine Ratio 13.5 (10.0-20.0); Blood Urea Nitrogen 13 mg/dL (9-23); Calcium 9.1 mg/dL (8.7-10.4); Carbon Dioxide 26 mmol/L (20-31); Chloride 106 mmol/L (98-107); Potassium 4.2 mmol/L (3.5-5.1); Sodium 140 mmol/L (136-145); Total Protein 6.7 g/dL (5.7-8.2)
[2025-03-06 04:44] LABS: Bilirubin, Total 0.2 mg/dL (0.2-1.0); Glucose 146 mg/dL (74-106)
[2025-03-06] MEDS: LEVOTHYROXINE SODIUM 100 MCG TAB PO SCH (05:32)
[2025-03-06] MEDS: SODIUM CHLOR 0.9% PF (SALINE LOCK) 10ML VIAL/SYR IV SCH (05:34)
[2025-03-06] MEDS: methylPREDNISolone SOD SUCC 40 MG/ML VL IV SCH (05:34)
[2025-03-06] MEDS: InsuLIN REG 1unit/0.01ml Soln (100units/ml) SC SCH (06:42)
[2025-03-06] MEDS: ACCU-CHEK COMFORT CURVE STRIP VI SCH (06:42)
--- NOTE | 2025-03-06 06:42 | ECG ---
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
[2025-03-06] MEDS: HYDROcodone-ACET 5/325MG TAB PO PRN (08:37)
[2025-03-06] MEDS: FAMOTIDINE (10MG/ML) 2ML VL IV SCH (09:29)
[2025-03-06] MEDS: diphenhdrAMINE HCL 50 MG/1 ML VL IV PRN (10:04)
[2025-03-06] MEDS: DOCUSATE SOD 100 MG CAP PO PRN (10:04)
[2025-03-06] MEDS: diphenhdrAMINE HCL 25 MG CAP PO SCH (11:00)
--- NOTE | 2025-03-06 11:03 | DVHPN2 ---
Subjective Patient continues to report having swelling to her face, lips. Denies any shortness of breath at this time. Reviewed: Care Plan, H&P, Labs Changes from previous H/P or p: No Changes General: Per HPI Eyes: No Pain, No Vision change, No Conjunctivae inflammation, No Eyelid inflammation, No Other, No Redness ENT: No Ear pain, No Ear discharge, No Nose pain, No Nose discharge, No Nose congestion; Mouth pain (Lips pain); No Mouth swelling, No Throat pain, No Throat swelling; Other (Swollen lips) Cardiovascular: Chest Pain; No Palpitations, No Orthopnea, No Paroxysmal Noc. Dyspnea, No Edema, No Lt Headedness, No Other Respiratory: No Cough, No Dry; Shortness of breath; No SOB with excertion, No Wheezing, No Hemoptysis, No Pleuritic Pain, No Sputum, No Other Gastrointestinal: No Nausea, No Vomiting, No Abdominal Pain, No Diarrhea, No Constipation, No Melena, No Hematochezia, No Other Genitourinary: No Dysuria, No Frequency, No Incontinence, No Hematuria, No Retention, No Other Musculoskeletal: No other, No neck pain, No shoulder pain, No arm pain, No back pain, No hand pain, No leg pain, No foot pain Skin: No Rash, No Lesions, No Jaundice, No Bruising, No Other Objective Vitals Vital Signs Date Time Temp Pulse Resp B/P (MAP) Pulse Ox O2 Delivery O2 Flow Rate FiO2 03/06/25 08:50 98.2 70 20 139/84 (102) 96 98.2 03/06/25 00:13 Room Air* 0 21 Intake/Output Intake and Output 03/06/25 07:00 Intake Total 1000 ml Balance 1000 ml Intake IV Total 1000 ml General Appearance: Alert, Oriented X3, Cooperative, No acute distress HEENT: Atraumatic, PERRLA, Other (Angioedema of the face) Cardiovascular: Normal S1, Normal S2 Abdomen: Normal bowel sounds, Soft, No tenderness Musculoskeletal: Normal sensory function, Normal motor function Neuro: Cranial nerves 3-12 NL Skin: Dry, Intact Psych/Mental Status: Mental status NL, Mood NL Medications Current Medications Medications Dose Ordered Sig/Vincenzo Route Start Time Stop Time Status Last Admin Dose Admin Methylprednisolone Sodium Succinate 40 mg Q8HR IV 03/06/25 06:00 03/06/25 05:34 40 MG Famotidine 20 mg Q12HR IV 03/06/25 10:00 03/06/25 09:29 20 MG Amlodipine Besylate 5 mg DAILY PO 03/06/25 10:00 03/06/25 08:43 5 MG Hydralazine HCl 10 mg Q6HP PRN IV 03/06/25 02:45 Atorvastatin Calcium 40 mg HS PO 03/06/25 22:00 Levothyroxine Sodium 100 mcg QAM@0600 PO 03/06/25 06:00 03/06/25 05:32 100 MCG Diphenhydramine HCl 25 mg Q4HP PRN IV 03/06/25 02:45 03/06/25 10:04 25 MG Diagnostic Test (Pha) 1 strip ACHS 03/06/25 07:00 03/06/25 06:42 1 STRIP Insulin Human Regular ACHS SC 03/06/25 07:00 03/06/25 06:42 2 UNITS Dextrose 50 ml UD PRN IV 03/06/25 02:45 Sodium Chloride 10 ml Q8HR IV 03/06/25 06:00 03/06/25 05:34 10 ML Acetaminophen/ Hydrocodone Bitart 1 tab Q4HP PRN PO 03/06/25 02:45 03/06/25 08:37 1 TAB Ondansetron HCl 4 mg Q4HP PRN IV 03/06/25 02:45 Docusate Sodium 100 mg BIDPRN PRN PO 03/06/25 02:45 03/06/25 10:04 100 MG Acetaminophen 650 mg Q6HP PRN PO 03/06/25 02:45 Nitroglycerin 0.4 mg Q5MINP PRN SL 03/06/25 03:15 Morphine Sulfate 2 mg Q30M PRN IV 03/06/25 03:15 Laboratory Results Laboratory Tests 03/06/25 03:55 Chemistry Test 03/06/25 00:20 03/06/25 03:55 Albumin 4.3 g/dL (3.2-4.8) 4.2 g/dL (3.2-4.8) Calcium Level 8.7 mg/dL (8.7-10.4) 9.1 mg/dL (8.7-10.4) Total Protein 6.9 g/dL (5.7-8.2) 6.7 g/dL (5.7-8.2) LFT Test 03/06/25 00:20 03/06/25 03:55 Alanine Aminotransferase (ALT) 11 U/L (7-40) 10 U/L (7-40) Alkaline Phosphatase 74 U/L (46-116) 68 U/L (46-116) Aspartate Amino Transferase (AST) 20 U/L (13-40) 18 U/L (13-40) Total Bilirubin 0.2 mg/dL (0.2-1.0) 0.2 mg/dL (0.2-1.0) HgA1c, TSH Test 03/06/25 03:55 Thyroid Stimulating Hormone (TSH) 1.10 uIU/mL (0.55-4.78) Labs and/or images reviewed: Labs reviewed by me, Image(s) reviewed by me Assessment/Plan Assessment/Plan Impression: -anaphylactic reaction, angioedema -primary hypertension -depression -chronic pain syndrome -diabetes mellitus -obesity Plan: -continue treatment with H1/H2 maryuri. IV Solu-Medrol -continue monitoring for worsening respiratory status -regular insulin sliding scale -pain management -restart antidepressants -repeat labs in a.m. Total time spent with patient discussing and formulating plan of care: 35 minutes. This medical document was created using an electronic medical record system with [employer] dictation system. Although this document has been carefully reviewed, there may still be some phonetic and typographical errors. These areas are purely typographical due to imperfections of the software programs, and do not reflect any compromise in the patient's medical care. Plan discussed with: Patient, Other (RN) My Orders Orders - KAROLINE HENDERSON NP Procedure Category Date Status Time Diphenhdramine PHA 03/06/25 Verified Capsule (Benadryl 11:00 (Nf) Quetiapine PHA 03/06/25 Verified Fumerate (Seroquel) 22:00 Fluoxetine Capsule PHA 03/07/25 Verified (Prozac Capsule) 10:00 Date of Service: Mar 06, 2025 Billing Provider: KAROLINE HENDERSON NP Common Visit Codes: [id number] INP/OBS CARE(HIGH) KAROLINE HENDERSON NP Mar 06, 2025 11:03
[2025-03-06] MEDS ORDERED: QUETIAPINE FUMERATE PO SCH (22:00)
[2025-03-06] MEDS: ATORVASTATIN 20 MG TAB PO SCH (22:26)
[2025-03-07] VITALS (9 sets, daily range): BP systolic 100–132; BP diastolic 64–89; PULSE 63–74; RESP 16–18; TEMP 97.5–98.3; O2SAT 96–99
[2025-03-07 07:08] LABS: Hematocrit 32.3 % (36.0-46.0); Hemoglobin 10.2 g/dL (12.2-16.2)
[2025-03-07 07:09] LABS: Albumin 3.8 g/dL (3.2-4.8); Alkaline Phosphatase 57 U/L (46-116); Anion Gap 9 (5-15); BUN/Creatinine Ratio 16.3 (10.0-20.0); Blood Urea Nitrogen 14 mg/dL (9-23); Calcium 9.4 mg/dL (8.7-10.4); Carbon Dioxide 24 mmol/L (20-31); Potassium 4.1 mmol/L (3.5-5.1); Sodium 141 mmol/L (136-145); Total Protein 6.0 g/dL (5.7-8.2)
[2025-03-07 07:10] LABS: Mean Corpuscular Hemoglobin 21.2 pg (28.0-32.0); Mean Corpuscular Volume 67.1 fL (80.0-100.0); Nucleated Red Blood Cells % 0.1 %
[2025-03-07 07:34] LABS: Alanine Aminotransferase < 9 U/L (7-40); Bilirubin, Total 0.3 mg/dL (0.2-1.0); Chloride 108 mmol/L (98-107); Glucose 132 mg/dL (74-106)
--- NOTE | 2025-03-07 15:55 | DVHPN2 ---
Subjective The patient seen and examined at bedside. Still complain of chest tightness. Patient also had some throat tightness. Reviewed: Care Plan, H&P, Labs Changes from previous H/P or p: No Changes General: Per HPI Eyes: No Pain, No Vision change, No Conjunctivae inflammation, No Eyelid inflammation, No Other, No Redness ENT: No Ear pain, No Ear discharge, No Nose pain, No Nose discharge, No Nose congestion; Mouth pain (Lips pain); No Mouth swelling, No Throat pain, No Throat swelling; Other (Swollen lips) Cardiovascular: Chest Pain; No Palpitations, No Orthopnea, No Paroxysmal Noc. Dyspnea, No Edema, No Lt Headedness, No Other Respiratory: No Cough, No Dry; Shortness of breath; No SOB with excertion, No Wheezing, No Hemoptysis, No Pleuritic Pain, No Sputum, No Other Gastrointestinal: No Nausea, No Vomiting, No Abdominal Pain, No Diarrhea, No Constipation, No Melena, No Hematochezia, No Other Genitourinary: No Dysuria, No Frequency, No Incontinence, No Hematuria, No Retention, No Other Musculoskeletal: No other, No neck pain, No shoulder pain, No arm pain, No back pain, No hand pain, No leg pain, No foot pain Skin: No Rash, No Lesions, No Jaundice, No Bruising, No Other Objective Vitals Vital Signs Date Time Temp Pulse Resp B/P (MAP) Pulse Ox O2 Delivery O2 Flow Rate FiO2 03/07/25 13:00 97.5 66 17 123/84 (97) 99 97.5 03/07/25 08:05 Room Air* 0 21 Intake/Output Intake and Output 03/07/25 07:00 Intake Total 720 ml Balance 720 ml Intake Oral 720 ml # Voids 2 # Bowel Movements 1 General Appearance: Alert, Oriented X3, Cooperative, No acute distress HEENT: Atraumatic, PERRLA, Other (Angioedema of the face) Cardiovascular: Normal S1, Normal S2 Abdomen: Normal bowel sounds, Soft, No tenderness Musculoskeletal: Normal sensory function, Normal motor function Neuro: Cranial nerves 3-12 NL Skin: Dry, Intact Psych/Mental Status: Mental status NL, Mood NL Medications Current Medications Medications Dose Ordered Sig/Vincenzo Route Start Time Stop Time Status Last Admin Dose Admin Methylprednisolone Sodium Succinate 40 mg Q8HR IV 03/06/25 06:00 03/07/25 14:14 40 MG Famotidine 20 mg Q12HR IV 03/06/25 10:00 03/07/25 09:31 20 MG Amlodipine Besylate 5 mg DAILY PO 03/06/25 10:00 03/07/25 09:32 5 MG Hydralazine HCl 10 mg Q6HP PRN IV 03/06/25 02:45 Atorvastatin Calcium 40 mg HS PO 03/06/25 22:00 03/06/25 22:26 40 MG Levothyroxine Sodium 100 mcg QAM@0600 PO 03/06/25 06:00 03/07/25 05:22 100 MCG Diagnostic Test (Pha) 1 strip ACHS 03/06/25 07:00 03/07/25 11:33 1 STRIP Insulin Human Regular ACHS SC 03/06/25 07:00 03/07/25 11:34 3 UNITS Dextrose 50 ml UD PRN IV 03/06/25 02:45 Sodium Chloride 10 ml Q8HR IV 03/06/25 06:00 03/07/25 14:14 10 ML Acetaminophen/ Hydrocodone Bitart 1 tab Q4HP PRN PO 03/06/25 02:45 03/06/25 08:37 1 TAB Ondansetron HCl 4 mg Q4HP PRN IV 03/06/25 02:45 Docusate Sodium 100 mg BIDPRN PRN PO 03/06/25 02:45 03/06/25 10:04 100 MG Acetaminophen 650 mg Q6HP PRN PO 03/06/25 02:45 Nitroglycerin 0.4 mg Q5MINP PRN SL 03/06/25 03:15 Morphine Sulfate 2 mg Q30M PRN IV 03/06/25 03:15 Fluoxetine HCl 20 mg DAILY PO 03/07/25 10:00 03/07/25 09:32 20 MG Quetiapine Fumarate 400 mg HS PO 03/06/25 22:00 03/06/25 22:26 400 MG Laboratory Results Laboratory Tests 03/07/25 05:46 Chemistry Test 03/07/25 05:46 Albumin 3.8 g/dL (3.2-4.8) Calcium Level 9.4 mg/dL (8.7-10.4) Total Protein 6.0 g/dL (5.7-8.2) LFT Test 03/07/25 05:46 Alanine Aminotransferase (ALT) < 9 U/L (7-40) Alkaline Phosphatase 57 U/L (46-116) Aspartate Amino Transferase (AST) 13 U/L (13-40) Total Bilirubin 0.3 mg/dL (0.2-1.0) Labs and/or images reviewed: Labs reviewed by me Assessment/Plan Assessment/Plan -anaphylactic reaction, angioedema , possible allergic to treat not per patient -primary hypertension -depression -chronic pain syndrome -diabetes mellitus -obesity Plan: -continue treatment with H1/H2 maryuri. IV Solu-Medrol -continue monitoring for worsening respiratory status -regular insulin sliding scale -pain management -restart antidepressants -advised the patient to see an chemical economist as outpatient to tests for allergy This medical document was created using an electronic medical record system with [employer] computerized dictation system. Although this document has been carefully reviewed, there may still be some phonetic and typographical errors. These areas are purely typographical due to imperfections of the software programs, and do not reflect any compromise in the patient's medical care. Plan discussed with: Patient Date of Service: Mar 07, 2025 Billing Provider: PETER POSADAS MD Common Visit Codes: [id number] INP/OBS CARE(HIGH) PETER POSADAS MD Mar 07, 2025 15:55
[2025-03-08] VITALS (7 sets, daily range): BP systolic 122–142; BP diastolic 78–94; PULSE 58–74; RESP 16–18; TEMP 98–98.2; O2SAT 97
--- NOTE | 2025-03-08 12:36 | DVHPN2 ---
Subjective The patient seen and examined at bedside. Still complain of chest tightness. Patient also had some throat tightness. Reviewed: Care Plan, H&P, Labs General: Per HPI Eyes: No Pain, No Vision change, No Conjunctivae inflammation, No Eyelid inflammation, No Other, No Redness ENT: No Ear pain, No Ear discharge, No Nose pain, No Nose discharge, No Nose congestion; Mouth pain (Lips pain); No Mouth swelling, No Throat pain, No Throat swelling; Other (Swollen lips) Cardiovascular: Chest Pain; No Palpitations, No Orthopnea, No Paroxysmal Noc. Dyspnea, No Edema, No Lt Headedness, No Other Respiratory: No Cough, No Dry; Shortness of breath; No SOB with excertion, No Wheezing, No Hemoptysis, No Pleuritic Pain, No Sputum, No Other Gastrointestinal: No Nausea, No Vomiting, No Abdominal Pain, No Diarrhea, No Constipation, No Melena, No Hematochezia, No Other Genitourinary: No Dysuria, No Frequency, No Incontinence, No Hematuria, No Retention, No Other Musculoskeletal: No other, No neck pain, No shoulder pain, No arm pain, No back pain, No hand pain, No leg pain, No foot pain Skin: No Rash, No Lesions, No Jaundice, No Bruising, No Other Objective Vitals Vital Signs Date Time Temp Pulse Resp B/P (MAP) Pulse Ox O2 Delivery O2 Flow Rate FiO2 03/08/25 09:20 130/89 03/08/25 08:20 72 16 97 Room Air* 0 21 03/08/25 05:00 98.2 98.2 Intake/Output Intake and Output 03/08/25 07:00 Intake Total 1110 ml Output Total 300 ml Balance 810 ml Intake Oral 1110 ml Output Urine Total 300 ml # Voids 2 General Appearance: Alert, Oriented X3, Cooperative, No acute distress HEENT: Atraumatic, PERRLA, Other (Angioedema of the face) Cardiovascular: Normal S1, Normal S2 Abdomen: Normal bowel sounds, Soft, No tenderness Musculoskeletal: Normal sensory function, Normal motor function Neuro: Cranial nerves 3-12 NL Skin: Dry, Intact Psych/Mental Status: Mental status NL, Mood NL Medications Current Medications Medications Dose Ordered Sig/Vincenzo Route Start Time Stop Time Status Last Admin Dose Admin Methylprednisolone Sodium Succinate 40 mg Q8HR IV 03/06/25 06:00 03/08/25 05:54 40 MG Famotidine 20 mg Q12HR IV 03/06/25 10:00 03/08/25 09:20 20 MG Amlodipine Besylate 5 mg DAILY PO 03/06/25 10:00 03/08/25 09:20 5 MG Hydralazine HCl 10 mg Q6HP PRN IV 03/06/25 02:45 Atorvastatin Calcium 40 mg HS PO 03/06/25 22:00 03/07/25 22:19 40 MG Levothyroxine Sodium 100 mcg QAM@0600 PO 03/06/25 06:00 03/08/25 05:54 100 MCG Diagnostic Test (Pha) 1 strip ACHS 03/06/25 07:00 03/08/25 11:30 1 STRIP Insulin Human Regular ACHS SC 03/06/25 07:00 03/08/25 12:04 2 UNITS Dextrose 50 ml UD PRN IV 03/06/25 02:45 Sodium Chloride 10 ml Q8HR IV 03/06/25 06:00 03/08/25 05:51 10 ML Acetaminophen/ Hydrocodone Bitart 1 tab Q4HP PRN PO 03/06/25 02:45 03/07/25 22:20 1 TAB Ondansetron HCl 4 mg Q4HP PRN IV 03/06/25 02:45 Docusate Sodium 100 mg BIDPRN PRN PO 03/06/25 02:45 03/08/25 05:54 100 MG Acetaminophen 650 mg Q6HP PRN PO 03/06/25 02:45 Nitroglycerin 0.4 mg Q5MINP PRN SL 03/06/25 03:15 Morphine Sulfate 2 mg Q30M PRN IV 03/06/25 03:15 Fluoxetine HCl 20 mg DAILY PO 03/07/25 10:00 03/08/25 09:20 20 MG Quetiapine Fumarate 400 mg HS PO 03/06/25 22:00 03/07/25 22:20 400 MG Laboratory Results Laboratory Tests 03/07/25 05:46 Assessment/Plan Assessment/Plan -anaphylactic reaction, angioedema , possible allergic to treat not per patient -primary hypertension -depression -chronic pain syndrome -diabetes mellitus -obesity Plan: -continue treatment with H1/H2 maryuri. IV Solu-Medrol -continue monitoring for worsening respiratory status -regular insulin sliding scale -pain management -restart antidepressants -advised the patient to see an vessel manager as outpatient to tests for allergy This medical document was created using an electronic medical record system with [employer] direct computerized dictation system. Although this document has been carefully reviewed, there may still be some phonetic and typographical errors. These areas are purely typographical due to imperfections of the software programs, and do not reflect any compromise in the patient's medical care. PETER POSADAS MD Mar 08, 2025 12:36
[2025-03-08] MEDS ORDERED: PRED10TA PO (13:17)
[2025-03-08] MEDS ORDERED: EPIN0.1I11 IJ (13:17)
--- NOTE | 2025-03-08 13:17 | DVHDS2 ---
Discharge Summary Date of Admission Mar 06, 2025 at 03:10 Date of Discharge: Mar 08, 2025 Labs/Diagnostic Data: Laboratory Results Test 03/08/25 11:51 03/07/25 05:46 03/06/25 03:55 POC Glucose 136 mg/dl (70-106) White Blood Count 11.0 10^3/uL (4.4-10.8) Red Blood Count 4.81 10^6/uL (4.0-5.20) Hemoglobin 10.2 g/dL (12.2-16.2) Hematocrit 32.3 % (36.0-46.0) Mean Corpuscular Volume 67.1 fL (80.0-100.0) Mean Corpuscular Hemoglobin 21.2 pg (28.0-32.0) Mean Corpuscular Hemoglobin Concent 31.5 g/dL (32.0-36.0) Red Cell Distribution Width 14.9 % (11.8-14.3) Platelet Count 376 10^3/uL (140-450) Mean Platelet Volume 8.4 fL (6.9-10.8) Neutrophils (%) (Auto) 91.6 % (37.0-80.0) Lymphocytes (%) (Auto) 6.1 % (10.0-50.0) Monocytes (%) (Auto) 2.1 % (0.0-12.0) Eosinophils (%) (Auto) 0.0 % (0.0-7.0) Basophils (%) (Auto) 0.2 % (0.0-2.0) Neutrophils # (Auto) 10.1 10 ^3/uL (1.6-8.6) Lymphocytes # (Auto) 0.7 10 ^3/uL (0.4-5.4) Monocytes # (Auto) 0.2 10 ^3/uL (0-1.3) Eosinophils # (Auto) 0 10 ^3/uL (0-0.8) Basophils # (Auto) 0 10 ^3/uL (0-0.2) Nucleated Red Blood Cells 0.1 % Sodium Level 141 mmol/L (136-145) Potassium Level 4.1 mmol/L (3.5-5.1) Chloride Level 108 mmol/L (98-107) Carbon Dioxide Level 24 mmol/L (20-31) Anion Gap 9 (5-15) Blood Urea Nitrogen 14 mg/dL (9-23) Creatinine 0.86 mg/dL (0.550-1.02) Glomerular Filtration Rate Calc 77 mL/min (>90) BUN/Creatinine Ratio 16.3 (10.0-20.0) Serum Glucose 132 mg/dL (74-106) Calcium Level 9.4 mg/dL (8.7-10.4) Total Bilirubin 0.3 mg/dL (0.2-1.0) Aspartate Amino Transferase (AST) 13 U/L (13-40) Alanine Aminotransferase (ALT) < 9 U/L (7-40) Alkaline Phosphatase 57 U/L (46-116) Total Protein 6.0 g/dL (5.7-8.2) Albumin 3.8 g/dL (3.2-4.8) Thyroid Stimulating Hormone (TSH) 1.10 uIU/mL (0.55-4.78) Other Laboratory Tests 03/07/25 05:46 Final Diagnosis/Problems List ANGIOEDEMA TO ? TREE NUTS VERSUS ACEI Discharge Disposition: Home Discharge Instruct/Medications Diet: Regular Activity: No Restrictions, As Tolerated Follow Up/Referral: PCP1-2 WEEKS Medications: STOP LISINOPRIL CONTINUE OTHER MEDS IN HOME MED Scheduled Carisoprodol (Carisoprodol), 350 MG PO TID Cetirizine Hcl (Zyrtec Allergy), 10 MG PO BID, (Reported) Dicyclomine Hcl (Bentyl Capsule), 1 CAP PO TID Diphenhydramine Hcl (Banophen), 50 MG PO DAILY, (Reported) Docusate Sodium (Colace), 1 CAP PO BID Ergocalciferol (Vitamin D2), 50,000 UNIT PO DAILY, (Reported) Estradiol (Estradiol), 1 MG PO QAM, (Reported) Estrogens, Conjugated (Premarin Tablet), 1.25 MG PO DAILY, (Reported) Ferrous Sulfate (Ferrous Sulfate), 325 MG PO BID, (Reported) Fluoxetine Hcl (Fluoxetine Hcl), 1 TAB PO DAILY, (Reported) Fluoxetine Hcl (Pmdd) (Selfemra), 3 CAP PO DAILY, (Reported) Lisinopril (Lisinopril), 10 MG PO DAILY Metformin Hydrochloride (Metformin Hcl), 500 MG PO IBID, (Reported) Metoclopramide Hcl (Metoclopramide Hcl), 10 MG PO QAM, (Reported) Metoprolol Tartrate (Lopressor), 50 MG PO BID Omeprazole (Gnp Omeprazole), 1 TAB PO DAILY, (Reported) Polyethylene Glycol (Miralax 17GM Pwd), 17 GRAMS PO DAILY, (Reported) Prednisone (Prednisone), 10 MG PO DAILY Quetiapine Fumerate (Seroquel), 2 TAB PO HS, (Reported) Simvastatin (Simvastatin), 1 TAB PO QPM, (Reported) Sucralfate (Carafate), 1 GM OR QIDACHS Zolpidem Tartrate (Zolpidem Tartrate), 1 TAB PO QPM, (Reported) Scheduled PRN Acetaminophen (Acetaminophen), 650 MG PO Q6HP PRN Acetaminophen (Eq Acetaminophen Extra St), 500 MG OR Q8HP PRN Cyclobenzaprine HCl (Cyclobenzaprine Hydrochlo), 10 MG PO Q8HPRN PRN Epinephrine (Anaphylaxis) (Auvi-Q), 0.1 MG IJ O PRN Famotidine (Pepcid AC), 20 MG PO QHSP PRN Linaclotide Base (Linzess), 290 MCG OR DAILYPRN PRN Magnesium Citrate (Magnesium Citrate), 300 MG OR DAILY PRN Sodium Phosphates (Fleet Enema Six Pack), 1 BOTTLE RE DAILY PRN Miscellaneous Medications Amlodipine Besylate (Norvasc Tablet), 2.5 MG GT, (Reported) Atorvastatin Calcium (Lipitor), 40 MG PO, (Reported) Fenofibrate (Tricor), (Reported) Hydroxyzine Hcl (Hydroxyzine Hcl), 50 MG PO, (Reported) Levothyroxine Sodium (Synthroid Tablet), 100 MCG PO, (Reported) Lubiprostone (Amitiza), 24 MCG PO, (Reported) Naloxegol Oxalate (Movantik), 25 MG PO, (Reported) Plecanatide (Trulance), 3 MG PO, (Reported) Venlafaxine Hcl (Venlafaxine Hcl Er), (Reported) Durable Medical Equipment Blood Pressure Monitoring (3 Series Blood Pressure M), UNIT XX ONCE, (DME) Discharge Statement: "Patient was advised to return to the ER or call 911 if any headaches, dizziness, shortness of breath, chest pain, abdominal pain, bleeding, fevers, or worsening of medical condition. Patient was counseled about treatment plan, medications, possible side effects, patientverbalized understanding. All questions were answered to the best of my ability. This discharge took greater then 30 minutes in planning, reviewing documentation, counseling the patient, and discussing with other team members." ASSESSMENT ASSESSMENT Assessment ANGIOEDEMA TO ? TREE NUTS VERSUS ACEI PETER POSADAS MD Mar 08, 2025 13:17
== END 2025-03-08 15:25 | disposition home or self-care (01) | DRG 916 ==
LOC: ER 21:25 → OVERFLOW 03-06 03:10 → TELE-EAST 03-06 16:15
PROVIDERS: ADMIT Nurse Practitioner Acute Care; ATTEND Nurse Practitioner Acute Care
DX: T78.3XXA Angioneurotic edema, initial encounter (principal); T78.05XA Anaphylactic reaction due to tree nuts and seeds, initial encounter; I10 Essential (primary) hypertension; F32.A Depression, unspecified; E11.9 Type 2 diabetes mellitus without complications; E66.9 Obesity, unspecified; G89.4 Chronic pain syndrome; K21.9 Gastro-esophageal reflux disease without esophagitis; F41.9 Anxiety disorder, unspecified; Z88.0 Allergy status to penicillin; Z91.018 Allergy to other foods; Z79.899 Other long term (current) drug therapy; Z90.49 Acquired absence of other specified parts of digestive tract; Y84.8 Other medical procedures as the cause of abnormal reaction of the patient, or of later complication, without mention of misadventure at the time of the procedure; Y92.89 Other specified places as the place of occurrence of the external cause; Z68.31 Body mass index [BMI] 31.0-31.9, adult
CPT/HCPCS: 36415; 71045; 80053; 82962; 84443; 85025; 93005; 96361; 96372; 96374; 96375; G0378; J0169; J1815; J3490

== ENCOUNTER 2025-03-20 07:51 | Outpatient (CLI) | payer MEDICAID ==
[~2025-03-20 07:51] MED LIST changes: +EPIN0.1I11 IJ; -LISI-275 PO; +PRED10TA PO
[2025-03-20 08:25] LABS: Hemoglobin 10.6 g/dL (12.2-16.2); Nucleated Red Blood Cells % 0.1 %
[2025-03-20 08:29] LABS: Hematocrit 33.3 % (36.0-46.0); Mean Corpuscular Hemoglobin 21.2 pg (28.0-32.0); Mean Corpuscular Volume 66.7 fL (80.0-100.0)
[2025-03-20 08:47] LABS: Albumin 4.1 g/dL (3.2-4.8); Alkaline Phosphatase 54 U/L (46-116); Anion Gap 7 (5-15); BUN/Creatinine Ratio 14.2 (10.0-20.0); Blood Urea Nitrogen 16 mg/dL (9-23); Calcium 8.8 mg/dL (8.7-10.4); Carbon Dioxide 29 mmol/L (20-31); Chloride 105 mmol/L (98-107); Glucose 99 mg/dL (74-106); Potassium 4.4 mmol/L (3.5-5.1); Sodium 141 mmol/L (136-145); Total Protein 6.2 g/dL (5.7-8.2); Triglycerides 116 mg/dL (< 150)
[2025-03-20 08:48] LABS: Alanine Aminotransferase 9 U/L (7-40); Bilirubin, Total 0.3 mg/dL (0.2-1.0); Cholesterol 228 mg/dL (< 200); HDL Cholesterol 74 mg/dL (40-59)
== END 2025-03-20 17:00 | disposition home or self-care (01) ==
LOC: LAB 07:51
PROVIDERS: ATTEND Licensed Practical Nurse
DX: M79.7 Fibromyalgia (principal); E78.5 Hyperlipidemia, unspecified; D63.8 Anemia in other chronic diseases classified elsewhere; R73.03 Prediabetes
CPT/HCPCS: 36415; 80053; 80061; 82043; 83036; 85025

== ENCOUNTER 2025-06-13 08:40 | Emergency (ER) | payer OTHER, MEDICAID ==
[~2025-06-13] VITALS: Ht 154.9 cm; Wt 75.8 kg
[2025-06-13 09:04] VITALS: BP 110/75; PULSE 103; RESP 17; TEMP 98.9; O2SAT 98
--- NOTE | 2025-06-13 09:08 | ED.PDOC ---
HPI Comments 60 y.o female presents to the ED for an evaluation of a laceration to her left forearm. Patient reports accidently cutting herself with glass and presents with gauze wrapped around laceration area. She complains of sharp 9/10 pain. She denies any dizziness, numbness or tingling sensation. Chief Complaint: Laceration Time Seen by MD: 09:00 Primary Care Provider: DREW Oliveira Notes: Nurses Notes, Medications, Allergies Allergies: Coded Allergies: Lisinopril (Verified Allergy, Severe, angioedema, 03/10/25) Patient has angioedema episode and required hospitalization. Penicillins (Verified Adverse Reaction, Unknown, 10/29/23) Uncoded Allergies: NUTS (Allergy, Severe, 06/12/23) NUT - UNSPECIFIED (Allergy, Unknown, Swelling, 11/21/23) Home Meds Active Scripts Amoxicillin Trihydrate (Amoxicillin) 500 Mg Tab, 1 TAB PO TID for 5 Days, #15 TAB Prov:HANY HURST MD 06/13/25 Epinephrine (Anaphylaxis) (Auvi-Q) 0.1 Mg/0.1 Ml Inj, 0.1 MG IJ O PRN for 1 Day, #1 INJ Prov:PETER POSADAS MD 03/08/25 Prednisone (Prednisone) 10 Mg Tab, 10 MG PO DAILY, #10 MG Prov:PETER POSADSA MD 03/08/25 Blood Pressure Monitoring (3 SERIES BLOOD PRESSURE M) Monitor Mis, UNIT XX ONCE, #1 . Prov:URSZULA GUSMAN RESIDENT 05/26/24 Metoprolol Tartrate (Lopressor) 50 Mg Tab, 50 MG PO BID for 60 Days, #120 TAB Prov:URSZULA GUSMAN RESIDENT 05/26/24 Carisoprodol (Carisoprodol) 350 Mg Tab, 350 MG PO TID for 10 Days, #30 TAB Prov:MARKOS BLANCO NP 11/26/23 Acetaminophen (Acetaminophen) 325 Mg Tab, 650 MG PO Q6HP PRN for 10 Days, #80 TAB Prov:MARKOS BLANCO NP 11/26/23 Cyclobenzaprine HCl (Cyclobenzaprine Hydrochlo) 10 Mg Tab, 10 MG PO Q8HPRN PRN for 14 Days, #42 TAB 0 Refills Prov:KIRT TONEY MD 11/20/23 Sodium Phosphates (FLEET ENEMA SIX PACK) Enema Danielle, 1 BOTTLE RE DAILY PRN, #1 EA Prov:HARRIET MORAES MD 10/09/23 Magnesium Citrate (MAGNESIUM CITRATE) 100 Mg Tab, 300 MG OR DAILY PRN, #30 TAB Prov:HARRIET MORAES MD 10/09/23 Sucralfate (CARAFATE) 1 Gm Tab, 1 GM OR QIDACHS for 30 Days, #120 TAB Prov:CLEVE GUERRERO MD 05/06/22 Famotidine (Pepcid AC) 20 Mg Tab, 20 MG PO QHSP PRN for 20 Days, #20 TAB Prov:FLORIN BARONE MD 11/10/21 Docusate Sodium (Colace) 100 Mg Cap, 1 CAP PO BID, #30 CAP Prov:NIRMAL GONZALEZ MD 10/10/21 Dicyclomine Hcl (BENTYL CAPSULE) 10 Mg Cp, 1 CAP PO TID, #90 CAP 11 Refills Prov:NIRMAL GONZALEZ MD 10/10/21 Linaclotide Base (LINZESS) 290 Mcg Cap, 290 MCG OR DAILYPRN PRN for 30 Days, #30 CAP Prov:RADHA RUSSELL MD 04/06/21 Reported Medications Lubiprostone (Amitiza) 24 Mcg Cap, 24 MCG PO, CAP 11/22/23 Naloxegol Oxalate (Movantik) 25 Mg Tab, 25 MG PO, TAB 11/22/23 Hydroxyzine Hcl (Hydroxyzine Hcl) 50 Mg Tab, 50 MG PO for 30 Days, MG 11/22/23 Plecanatide (Trulance) 3 Mg Tab, 3 MG PO, TAB 11/22/23 Amlodipine Besylate (NORVASC TABLET) 5 Mg Tb, 2.5 MG GT, TAB 11/22/23 Levothyroxine Sodium (SYNTHROID TABLET) 100 Mcg Tb, 100 MCG PO, TAB 11/22/23 Atorvastatin Calcium (Lipitor) 40 Mg Tab, 40 MG PO, TAB 12/06/21 Polyethylene Glycol (MIRALAX 17GM PWD) 17 Gm Pw, 17 GRAMS PO DAILY, #527 GRAMS 11/27/21 Metoclopramide Hcl (Metoclopramide Hcl) 10 Mg Tab, 10 MG PO QAM for 30 Days, MG 09/20/21 Estradiol (Estradiol) 1 Mg Tab, 1 MG PO QAM, MG 09/20/21 Metformin Hydrochloride (Metformin Hcl) 500 Mg Tab, 500 MG PO IBID for 30 Days, MG 04/05/21 Ferrous Sulfate (FERROUS SULFATE) 325 Mg Tb, 325 MG PO BID, TAB 12/28/20 Diphenhydramine Hcl (Banophen) 25 Mg Tab, 50 MG PO DAILY, TAB 12/28/20 Omeprazole (Gnp Omeprazole) 20 Mg Tab, 1 TAB PO DAILY, #90 TAB 0 Refills 12/28/20 Ergocalciferol (VITAMIN D2) 2,000 Unit Tab, 55121 UNIT PO DAILY, TAB 12/28/20 Zolpidem Tartrate (Zolpidem Tartrate) 5 Mg Tab, 1 TAB PO QPM, #30 TAB 0 Refills 12/28/20 Simvastatin (Simvastatin) 40 Mg Tab, 1 TAB PO QPM, #30 TAB 0 Refills 12/28/20 Cetirizine Hcl (Zyrtec Allergy) 10 Mg Cap, 10 MG PO BID, CAP 12/28/20 Fluoxetine Hcl (Fluoxetine Hcl) 20 Mg Tab, 1 TAB PO DAILY, #90 TAB 0 Refills 12/28/20 Estrogens, Conjugated (PREMARIN TABLET) 0.625 Mg Tb, 1.25 MG PO DAILY, TAB 12/28/20 Quetiapine Fumerate (Seroquel) 400 Mg Tab, 2 TAB PO HS, TAB 08/16/17 Fluoxetine Hcl (Pmdd) (Selfemra) 20 Mg Cap, 3 CAP PO DAILY fluoxetine 20mg cap, take 3 capsule PO daily in AM 05/01/12 Fenofibrate (Tricor) 48 Mg Tab 05/01/12 Venlafaxine Hcl (Venlafaxine Hcl Er) 37.5 Mg Cap 05/01/12 Information Source: Patient Mode of Arrival: Ambulatory Complexity: Complex Timing: Hours Laceration Location: Arm Mechanism: Glass Laceration Length (cm): 55 Skin Type: Linear Depth of Injury: Skin Tender: Moderate Associated Signs and Symptoms: Bleeding Past Medical History PAST MEDICAL HISTORY: Anemia, Anxiety, Depression, DM, GERD, High Lipids, HTN Surgical History: Cholecystectomy 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 ASSEMBLER History: No Pertinent 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 ASSEMBLER History Family History Family History: Reviewed,noncontributory to illness Social History Smoker: Non-Smoker Alcohol: Denies ETOH Use Drugs: Denies Drug Use Lives In: Home Constitutional: denies: chills, diaphoresis, fatigue, fever, malaise, sweats, weakness, others EENTM: denies: blurred vision, double vision, ear bleeding, ear discharge, ear drainage, ear pain, ear ringing, eye pain, eye redness, hearing loss, mouth pain, mouth swelling, nasal discharge, nose bleeding, nose congestion, nose pain, photophobia, tearing, throat pain, throat swelling, voice changes, others Respiratory: denies: cough, hemoptysis, orthopnea, SOB at rest, shortness of breath, SOB with excertion, stridor, wheezing, others Cardiovascular: denies: chest pain, dizzy spells, diaphoresis, Dyspnea on exertion, edema, irregular heart beat, left arm pain, lightheadedness, palpitations, PND, syncope, others Gastrointestinal: denies: abdomen distended, abdominal pain, blood streaked bowels, constipated, diarrhea, dysphagia, difficulty swallowing, hematemesis, melena, nausea, poor appetite, poor fluid intake, rectal bleeding, rectal pain, vomiting, others Genitourinary: denies: abnormal vagina bleeding, burning, dyspareunia, dysuria, flank pain, frequency, hematuria, incontinence, pain, , vagina discharge, urgency, others Neurological: denies: dizziness, fainting, headache, left sided numbness, left sided weakness, numbness, paresthesia, pre-existing deficit, right sided numbness, right sided weakness, seizure, speech problems, tingling, tremors, weakness, others Musculoskeletal: denies: back pain, gout, joint pain, joint swelling, muscle pain, muscle stiffness, neck pain, others Integumetry: reports: laceration (left forearm ); denies: bruises, change in color, change in hair/nails, dryness, lesions, lumps, rash, wounds, others Allergic/Immunocompromised: denies: Difficulty Healing, Frequent Infections, Hives, Itching, others Hematologic/Lymphatic: denies: anemia, blood clots, easy bleeding, easy bruising, swollen glands, others Endocrine: denies: excessive hunger, excessive sweating, excessive thirst, excessive urination, flushing, intolerance to cold, intolerance to heat, unexplained weight gain, unexplained weight loss, others Psychiatric: denies: anxiety, bipolar disorder, depression, hopeless, panic disorder, schizophrenia, sleepless, suicidal, others All Other Systems: Reviewed and Negative Physical Exam General Appearance: Moderate Distress HEENT: Normal ENT Inspection, Pharynx Normal, TMs Normal Neck: Full Range of Motion, Non-Tender, Normal, Normal Inspection Respiratory: Chest Non-Tender, Lungs Clear, No Accessory Muscle Use, No Respiratory Distress, Normal Breath Sounds Cardiovascular: No Edema, No JVD, No Murmur, No Gallop, Normal Peripheral Pulses, Regular Rate/Rhythm Breast Exam: Deferred Gastrointestinal: No Organomegaly, Non Tender, No Pulsatile Mass, Normal Bowel Sounds, Soft Genitalia: Deferred Pelvic: Deferred Rectal: Deferred Extremities: No calf tenderness, Normal capillary refill, Normal inspection, Normal range of motion, Non-tender, No pedal edema Musculoskeletal : Apperance: Normal Neurologic: Alert, front end architect II-XII nml as Tested, No Motor Deficits, Normal Affect, Normal Mood, No Sensory Deficits Cerebellar Function: Normal Reflexes: Normal Skin: Lacerations (Left forearm 5 cm) Peripheral Pulses: 3+ Radial (R), 3+ Radial (L) Lymphatic: No Adenopathy Was a procedure done? Was a procedure done?: Yes Sedation Sedation?: No Laceration Repair : Location Left forearm Length 5 cm Anesthetic: Lidocaine Laceration Repair Prep: Saline Laceration Repair Wound Comple: epidermis/dermis repair Laceration Repair: Number of sutures (Six) Informed consent obtained: Yes Risks, benefits, and alternati: Yes Differential diagnosis Generic Laceration: Tendon Injury, Abrasion/Contusion, Laceration X-Ray, Labs, Meds, VS Vital Signs Date Time Temp Pulse Resp B/P (MAP) Pulse Ox O2 Delivery O2 Flow Rate FiO2 06/13/25 09:04 98.9 103 17 110/75 (87) 98 98.9 06/13/25 09:04 103 17 98 Room Air 06/13/25 08:41 99.9 109 18 121/85 99 99.9 Current Medications Medications (Trade) Dose Ordered Sig/Vincenzo Route Start Time Stop Time Status Last Admin Diphtheria/ Tetanus/Acell Pertussis (Boostrix T-Dap) 0.5 ml ONCE ONCE IM 06/13/25 09:45 06/13/25 09:46 DC 06/13/25 09:43 Patient alert. Came in because of laceration in the left forearm. Vitals stable. Answering questions. Was given tetanus. Was given prescription of amoxicillin antibiotic. Sutured. Explained to the patient. Was told to follow up with her primary care physician. Was told to come back if there is any problem. Time of 1ST Reevaluation: 09:06 Reevaluation 1ST: Unchanged Patient Education/Counseling: Diagnosis, Treatment, Prognosis Family Education/Counseling: No Family Present Departure 1 Departure Time of Disposition: 09:45 Impression: Primary Impression: Laceration Disposition: 01 HOME / SELF CARE / HOMELESS Condition: Good e-Prescriptions Amoxicillin Trihydrate (Amoxicillin) 500 Mg Tab 1 TAB PO TID for 5 Days, #15 TAB Prov: HANY HURST MD 06/13/25 Discharged With: Self Critical Care Note Critical Care Time?: No Stability Stability form required: No I personally scribed for HANY HURST MD ([email or web address]) on 06/13/25 at 09:08. Electronically submitted by Karmen Drake ([facility]). HNAY HURST MD Jun 13, 2025 09:08
[2025-06-13] MEDS: TETANUS-DIPTH-ACEL PERTUSSIS 0.5ML SYR Tdap IM ONE (09:43)
[2025-06-13] MEDS ORDERED: AMOX500T3 PO (09:46)
== END 2025-06-13 09:52 | disposition home or self-care (01) ==
LOC: ER 08:40
DX: S51.812A Laceration without foreign body of left forearm, initial encounter (principal); E11.9 Type 2 diabetes mellitus without complications; I10 Essential (primary) hypertension; Z79.899 Other long term (current) drug therapy; Z88.0 Allergy status to penicillin; Z88.8 Allergy status to other drugs, medicaments and biological substances; Z90.49 Acquired absence of other specified parts of digestive tract; W25.XXXA Contact with sharp glass, initial encounter; Y93.89 Activity, other specified; Y92.89 Other specified places as the place of occurrence of the external cause; Y99.8 Other external cause status
CPT/HCPCS: 12002; 90471; 90715

== ENCOUNTER 2025-07-10 16:16 | Inpatient (IN) | payer MEDICARE, MEDICAID ==
[~2025-07-10] VITALS: Ht 154.9 cm; Wt 87.1 kg
[~2025-07-10 16:16] MED LIST changes: +AMOX500T3 PO
--- NOTE | 2025-07-10 17:08 | ED.PDOC ---
HPI (NEURO) HPI Comments This is a 60 year old female with past medical history of hypertension anemia BIBA presenting to the ED with chief complaint of dizziness. Patient reports that she has been experiencing worsening dizziness with associated headache and fatigue since this morning. Patient relays that her home health nurse came by today and she was told her BP was low, calling 911 for assistance. Patient notes she has an upcoming neurologist appointment in August for similar symptoms, however, been evaluated for this previously. Patient denies any nausea, vomiting, chest pain, SOB, numbness, or weakness. Chief Complaint: Dizziness Time Seen by MD: 17:06 Primary Care Provider: DREW Oliveira Notes: Nurses Notes, Medications, Allergies Information Source: Patient Mode of Arrival: EMS Severity: Moderate Dizziness/Weakness Severity: Unable to do activities Headache Severity: Moderate Timing: Hours Duration: Since onset Prehospital treatment: None Headache Quality: Aching Headache Location: Generalized Onset: At rest Circumstances: Spontaneous Past Medical History PAST MEDICAL HISTORY: Anemia, Anxiety, Depression, DM, GERD, High Lipids, HTN Surgical History: Cholecystectomy WHARF WORKER History: No Pertinent WHARF WORKER History Family History Family History: Reviewed,noncontributory to illness Social History Smoker: Non-Smoker Alcohol: Denies ETOH Use Drugs: Denies Drug Use Lives In: Home Constitutional: reports: fatigue; denies: chills, diaphoresis, fever, malaise, sweats, weakness, others EENTM: denies: blurred vision, double vision, ear bleeding, ear discharge, ear drainage, ear pain, ear ringing, eye pain, eye redness, hearing loss, mouth pain, mouth swelling, nasal discharge, nose bleeding, nose congestion, nose pain, photophobia, tearing, throat pain, throat swelling, voice changes, others Respiratory: denies: cough, hemoptysis, orthopnea, SOB at rest, shortness of breath, SOB with excertion, stridor, wheezing, others Cardiovascular: denies: chest pain, dizzy spells, diaphoresis, Dyspnea on exertion, edema, irregular heart beat, left arm pain, lightheadedness, palpitations, PND, syncope, others Gastrointestinal: denies: abdomen distended, abdominal pain, blood streaked bowels, constipated, diarrhea, dysphagia, difficulty swallowing, hematemesis, melena, nausea, poor appetite, poor fluid intake, rectal bleeding, rectal pain, vomiting, others Genitourinary: denies: abnormal vagina bleeding, burning, dyspareunia, dysuria, flank pain, frequency, hematuria, incontinence, pain, , vagina discharge, urgency, others Neurological: reports: dizziness, headache; denies: fainting, left sided numbness, left sided weakness, numbness, paresthesia, pre-existing deficit, right sided numbness, right sided weakness, seizure, speech problems, tingling, tremors, weakness, others Musculoskeletal: denies: back pain, gout, joint pain, joint swelling, muscle pain, muscle stiffness, neck pain, others Integumetry: denies: bruises, change in color, change in hair/nails, dryness, laceration, lesions, lumps, rash, wounds, others Allergic/Immunocompromised: denies: Difficulty Healing, Frequent Infections, Hives, Itching, others Hematologic/Lymphatic: denies: anemia, blood clots, easy bleeding, easy bruising, swollen glands, others Endocrine: denies: excessive hunger, excessive sweating, excessive thirst, excessive urination, flushing, intolerance to cold, intolerance to heat, unexplained weight gain, unexplained weight loss, others Psychiatric: denies: anxiety, bipolar disorder, depression, hopeless, panic disorder, schizophrenia, sleepless, suicidal, others All Other Systems: Reviewed and Negative Physical Exam General Appearance: No Apparent Distress, Normal HEENT: Normal ENT Inspection, Pharynx Normal, TMs Normal Neck: Full Range of Motion, Non-Tender, Normal, Normal Inspection Respiratory: Chest Non-Tender, Lungs Clear, No Accessory Muscle Use, No Respiratory Distress, Normal Breath Sounds Cardiovascular: No Edema, No JVD, No Murmur, No Gallop, Normal Peripheral Pulses, Regular Rate/Rhythm Breast Exam: Deferred Gastrointestinal: No Organomegaly, Non Tender, No Pulsatile Mass, Normal Bowel Sounds, Soft Genitalia: Deferred Pelvic: Deferred Rectal: Deferred Extremities: No calf tenderness, Normal capillary refill, Normal inspection, Normal range of motion, Non-tender, No pedal edema Musculoskeletal : Apperance: Normal Neurologic: Alert, rat farmer II-XII nml as Tested, No Motor Deficits, Normal Affect, Normal Mood, No Sensory Deficits Cerebellar Function: Normal Reflexes: Normal Skin: Dry, Normal Color, Warm Lymphatic: No Adenopathy EKG EKG : Pulse Rate (adult): 78 Cardiac Rhythm: NSR Was a procedure done? Was a procedure done?: No Differential Diagnosis (SZ) Seizure: Hypoglycemia, Hyponatremia, Syncope CVA: Electrolyte Imbalance, Hypoglycemia General Weakness: Anemia, Dehydration, Dysrhythmia, Electrolyte imbalance, Hypotension, Renal failure X-Ray, Labs, Meds, VS Vital Signs Date Time Temp Pulse Resp B/P (MAP) Pulse Ox O2 Delivery O2 Flow Rate FiO2 07/10/25 20:00 104 07/10/25 19:52 80 18 97 Room Air* 0 21 07/10/25 19:52 98.1 82 18 109/66 (80) 97 98.1 07/10/25 19:09 97.9 82 18 86/59 (68) 100 97.9 07/10/25 19:09 82 18 100 Room Air 07/10/25 17:08 78 07/10/25 16:46 78 07/10/25 16:24 98.1 82 16 107/59 96 98.1 Lab Test 07/10/25 19:22 07/10/25 18:23 07/10/25 17:08 Range/Units Lactic Acid Level 1.1 0.4-2.0 mmol/L Troponin I High Sensitivity < 3 L < 3 L 6 </=34 ng/L White Blood Count 4.4 4.4-10.8 10^3/uL Red Blood Count 5.11 4.0-5.20 10^6/uL Hemoglobin 10.6 L 12.2-16.2 g/dL Hematocrit 34.5 L 36.0-46.0 % Mean Corpuscular Volume 67.4 L 80.0-100.0 fL Mean Corpuscular Hemoglobin 20.7 L 28.0-32.0 pg Mean Corpuscular Hemoglobin Concent 30.6 L 32.0-36.0 g/dL Red Cell Distribution Width 15.6 H 11.8-14.3 % Platelet Count 348 140-450 10^3/uL Mean Platelet Volume 7.3 6.9-10.8 fL Neutrophils (%) (Auto) 52.0 37.0-80.0 % Lymphocytes (%) (Auto) 38.1 10.0-50.0 % Monocytes (%) (Auto) 7.2 0.0-12.0 % Eosinophils (%) (Auto) 1.8 0.0-7.0 % Basophils (%) (Auto) 0.9 0.0-2.0 % Neutrophils # (Auto) 2.3 1.6-8.6 10 ^3/uL Lymphocytes # (Auto) 1.7 0.4-5.4 10 ^3/uL Monocytes # (Auto) 0.3 0-1.3 10 ^3/uL Eosinophils # (Auto) 0.1 0-0.8 10 ^3/uL Basophils # (Auto) 0 0-0.2 10 ^3/uL Nucleated Red Blood Cells 0.2 % Platelet Estimate Adequate Hypochromasia (manual) Marked Anisocytosis (manual) Slight Microcytosis Marked Ovalocytes Few Schistocytes Few Sodium Level 139 136-145 mmol/L Potassium Level 4.8 3.5-5.1 mmol/L Chloride Level 105 98-107 mmol/L Carbon Dioxide Level 27 20-31 mmol/L Anion Gap 7 5-15 Blood Urea Nitrogen 19 9-23 mg/dL Creatinine 1.17 H 0.550-1.02 mg/dL Glomerular Filtration Rate Calc 53 >90 mL/min BUN/Creatinine Ratio 16.2 10.0-20.0 Serum Glucose 71 L 74-106 mg/dL Calcium Level 9.4 8.7-10.4 mg/dL B-Type Natriuretic Peptide 3.86 0-100 pg/mL Lipase 39 12-53 U/L Current Medications Medications (Trade) Dose Ordered Sig/Vincenzo Route Start Time Stop Time Status Last Admin Sodium Chloride 1,000 ml @ 1,000 mls/hr Q1H ONCE IV 07/10/25 19:15 07/10/25 20:14 DC 07/10/25 19:15 Acetaminophen (Tylenol Tablet) 650 mg ONCE ONCE PO 07/10/25 19:15 07/10/25 19:17 DC 07/10/25 19:[address] [address] Ph: [phone] DIAGNOSTIC IMAGING Diagnostic Imaging Report : [id number] Signed PATIENT: AMBROSE MOORE V ACCT: [id number] UNIT: [id number] : 1965 LOC: ER ROOM / BED: / AGE / SEX: 60 / F ADM STATUS: REG ER SERVICE [id number] ORDERING PHYSICIAN: AMBROSE JAQUEZ MD PROCEDURE(s): CXRP - CHEST PORTABLE REASON: dizziness ORDER NUMBER(s): [id number], ACCESSION NUMBER(s): [id number] CHEST RADIOGRAPH Indication: dizziness Technique: Single frontal view of the chest was obtained Comparison: XY CHEST PORTABLE on DOS: 03/06/25, CXR1 on DOS: 04/16/21 FINDINGS: Lines and Tubes: None Lungs: No focal consolidation. Pleura: No effusion. No pneumothorax. Cardiomediastinal contours: Unremarkable Bones: No acute osseous abnormality. IMPRESSION: 1. No acute cardiopulmonary disease. 2. No significant change from 03/06/2025 ATED BY: AMAIRANI HERNANDEZ Jr., DO DICTATED DATE/TIME: 07/10/251739 SIGNED BY: AMAIRANI HERNANDEZ Jr., SIGNED DATE/TIME: 07/10/251739 CC: X-Ray, Labs, Meds, VS Comment Patient presenting with dizziness and hypotension from home. Patient with a history of hypotension, however states she has not taken her medications due to her low blood pressure today. she states there is no concern for her taking an extra dose of her antihypertensives. Lab work (CBC, BMP) to evaluate for evidence of severe anemia, electrolyte abnormality including hypokalemia, hyperkalemia, hypernatremia, hyponatremia, hyperglycemia, hypoglycemia, etc. EKG and troponin to evaluate for evidence of arrhythmia, ACS, AMI Chest x-ray to evaluate for pneumonia, pneumothorax with volume overload IV fluids P.o. Tylenol Re-evaluate Social determinant surveillance affecting care: Social determinants of health that will affect the patient's care: Poor health literacy (additional time provided an explanation) Poor access to outpatient care/followup (provided outpatient resources) Images Reviewed?: Images reviewed and evaluated by me Time of 1ST Reevaluation: 18:05 Reevaluation 1ST: Unchanged Patient Education/Counseling: Diagnosis, Treatment Family Education/Counseling: No Family Present Departure 1 Departure Time of Disposition: 21:07 (On reassessment, patient is hypotensive improved with IV fluids, however now persistently tachycardic. Labs and imaging unremarkable. Will admit for near-syncope and hypotension.) Impression: Primary Impression: Near syncope Additional Impressions: Hypotension Qualified Codes: I95.9 - Hypotension, unspecified Acute headache Qualified Codes: R51.9 - Headache, unspecified Disposition: 09 ADMITTED INPATIENT Admit to: Med Surg Condition: Guarded Critical Care Note Critical Care Time?: Yes (45 min-critical care time only) Critical care comment: hypotension Stability Stability form required: No Heart Score Heart Score: Heart Score Response (Comments) Value History N/A 0 EKG N/A 0 Age N/A 0 Risk Factors N/A 0 Troponin N/A 0 Total 0 I personally scribed for AMBROSE JAQUEZ MD ([email or web address]) on 07/10/25 at 17:08. Electronically submitted by Vernon Pickens ([email or web address]). I personally scribed for AMBROSE JAQUEZ MD ([email or web address]) on 07/10/25 at 17:52. Electronically submitted by Vernon Pickens ([email or web address]). AMBROSE JAQUEZ MD Jul 10, 2025 17:08
[2025-07-10 17:15] LABS: Hematocrit 34.5 % (36.0-46.0); Nucleated Red Blood Cells % 0.2 %
[2025-07-10 17:16] LABS: Hemoglobin 10.6 g/dL (12.2-16.2); Mean Corpuscular Hemoglobin 20.7 pg (28.0-32.0); Mean Corpuscular Volume 67.4 fL (80.0-100.0)
[2025-07-10 17:23] LABS: Chloride 105 mmol/L (98-107); Potassium 4.8 mmol/L (3.5-5.1); Sodium 139 mmol/L (136-145)
[2025-07-10 17:24] LABS: Anion Gap 7 (5-15); Carbon Dioxide 27 mmol/L (20-31)
[2025-07-10 17:25] LABS: Calcium 9.4 mg/dL (8.7-10.4)
[2025-07-10 17:30] LABS: BUN/Creatinine Ratio 16.2 (10.0-20.0); Blood Urea Nitrogen 19 mg/dL (9-23); Lipase 39 U/L (12-53)
[2025-07-10 17:31] LABS: Glucose 71 mg/dL (74-106)
--- NOTE | 2025-07-10 17:42 | DVH ---
CHEST RADIOGRAPH Indication: dizziness Technique: Single frontal view of the chest was obtained Comparison: XY CHEST PORTABLE on DOS: 03/06/25, CXR1 on DOS: 04/16/21 FINDINGS: Lines and Tubes: None Lungs: No focal consolidation. Pleura: No effusion. No pneumothorax. Cardiomediastinal contours: Unremarkable Bones: No acute osseous abnormality. IMPRESSION: 1. No acute cardiopulmonary disease. 2. No significant change from 03/06/2025
[2025-07-10 17:45] LABS: Anisocytosis Slight; Ovalocytes FEW
--- NOTE | 2025-07-10 19:13 | ECG ---
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
[2025-07-10] MEDS: SODIUM CHLORIDE 0.9% 1,000 ML IV ONE (19:15)
[2025-07-10] MEDS: ACETAMINOPHEN 325 MG TAB PO ONE (19:23)
[2025-07-10 19:52] VITALS: PULSE 80; RESP 18; O2SAT 97
[2025-07-10] MEDS: SODIUM CHLORIDE 0.9% 1,000 ML IV SCH (21:45)
[2025-07-10] MEDS ORDERED: NITROGLYCERIN 0.4 MG SL TAB SL PRN (21:45)
[2025-07-10] MEDS ORDERED: MORPHINE SULFATE INJ 2 MG/ml SYRG IV PRN (21:45)
--- NOTE | 2025-07-10 22:58 | DVHHPRES ---
History of Present Illness Resident Creating Document: YOLY SPENCER RESIDENT History of Present Illness This is a 60 years old female with multiple med past medical history including anxiety, depression, hypertension, IBS, HLD, BIPOLAR DISORDER, CHRONIC PAIN SYNDROME, DM 2, GERD, hypothyroidism, chronic constipation, chronic low-back pain brought by EMS to the hospital due to feeling dizziness at home associated with headache, fatigue, generalized weakness. As per patient, home health aide nurse measuring blood pressure at home and found 82/40, [id number]. Patient unable to stand up at home due to dizziness and vertigo. Patient history of fall last month and had a lacerated injury on right forearm need stitches. Reviewed chart shows, possible polypharmacy associated with current symptoms. Patient follow- up with Neurology appointment on August 2025. Compliance with her medication, currently denies any fever, chest pain, SOB, abdominal pain, dysuria or any other acute distress. patient recent visit hospital on 03/07/2025 anaphylactic reaction possible allergic to nut versus ACEI. Medical history: As above Past surgical history: Bowel resection due to obstruction, cholecystectomy, tonsillectomy, bilateral salpingo-oophorectomy, spinal surgery Social history: Denies any smoking, EtOH use or illicit drug Family history nothing contributory PCP: Dr. Ruffin Allergic: Lisinopril, nuts. Medication: Tylenol, amlodipine, atorvastatin, carisoprodol, cyclobenzaprine, EpiPen, vitamin D3, Premarin, famotidine, fenofibrate, ferrous sulfate, fexofenadine, levothyroxine, Enma to light, lubiprostone, metformin, metoprolol, omeprazole, polyethylene glycol, quetiapine, simvastatin, venlafaxine, Jardiance, zolpidem. Review of Systems Constitutional: Yes: Weakness (Dizziness, vertigo), Malaise; No: Fever, Chills, Sweats, Other Eyes: No: Pain, Vision change, Conjunctivae inflammation, Eyelid inflammation, Other, Redness ENT: No: Ear pain, Ear discharge, Nose pain, Nose discharge, Nose congestion, Mouth pain, Mouth swelling, Throat pain, Throat swelling, Other Respiratory: No: Cough, Dry, Shortness of breath, SOB with excertion, Wheezing, Hemoptysis, Pleuritic Pain, Sputum, Wheezing, Other Cardiovascular: No: Chest Pain, Palpitations, Orthopnea, Paroxysmal Noc. Dyspnea, Edema, Lt Headedness, Other Gastrointestinal: Nausea; No: Vomiting, Abdominal Pain, Diarrhea, Constipation, Melena, Hematochezia, Other Musculoskeletal: back pain Skin: No: Rash, Lesions, Jaundice, Bruising, Other Neurological: No: Weakness, Numbness, Incoordination, Change in speech, Confusion, Seizures, Other Allergies: Coded Allergies: Lisinopril (Verified Allergy, Severe, angioedema, 03/10/25) Patient has angioedema episode and required hospitalization. Penicillins (Verified Adverse Reaction, Unknown, 10/29/23) Uncoded Allergies: NUTS (Allergy, Severe, 06/12/23) NUT - UNSPECIFIED (Allergy, Unknown, Swelling, 11/21/23) Medications Current Medications Medications Dose Ordered Sig/Vincenzo Route Start Time Stop Time Status Last Admin Dose Admin Sodium Chloride 1,000 ml @ 60 mls/hr [id number] IV 07/10/25 21:45 07/10/25 21:45 60 MLS/HR Enoxaparin Sodium 30 mg DAILY SC 07/11/25 10:00 Nitroglycerin 0.4 mg Q5MINP PRN SL 07/10/25 21:45 Morphine Sulfate 2 mg Q30M PRN IV 07/10/25 21:45 Exam Vital Signs Vital Signs Date Time Temp Pulse Resp B/P (MAP) Pulse Ox O2 Delivery O2 Flow Rate FiO2 07/10/25 22:26 98.1 83 20 115/79 (91) 97 98.1 07/10/25 19:52 Room Air* 0 21 General Appearance: Alert, Oriented X3, Cooperative, mild distress HEENT: Atraumatic, PERRLA, EOMI Respiratory: Clear to auscultation, Normal air movement Cardiovascular: Regular rate, Normal S1, Normal S2, No murmurs Abdominal: Normal bowel sounds, Soft, No tenderness, Other (Surgical scar anterior abdominal wall) Extremities: No clubbing, No cyanosis, No edema Skin: No rashes, No breakdown Neuro: Normal gait, Normal speech, Strength at 5/5 X4 ext, Normal tone, Sensation intact, Cranial nerves 3-12 NL Psych/Mental Status: Mental status NL, Mood NL Labs/Xrays Labs Test 07/10/25 19:22 07/10/25 17:08 Range/Units Lactic Acid Level 1.1 0.4-2.0 mmol/L Troponin I High Sensitivity < 3 L </=34 ng/L White Blood Count 4.4 4.4-10.8 10^3/uL Red Blood Count 5.11 4.0-5.20 10^6/uL Hemoglobin 10.6 L 12.2-16.2 g/dL Hematocrit 34.5 L 36.0-46.0 % Mean Corpuscular Volume 67.4 L 80.0-100.0 fL Mean Corpuscular Hemoglobin 20.7 L 28.0-32.0 pg Mean Corpuscular Hemoglobin Concent 30.6 L 32.0-36.0 g/dL Red Cell Distribution Width 15.6 H 11.8-14.3 % Platelet Count 348 140-450 10^3/uL Mean Platelet Volume 7.3 6.9-10.8 fL Neutrophils (%) (Auto) 52.0 37.0-80.0 % Lymphocytes (%) (Auto) 38.1 10.0-50.0 % Monocytes (%) (Auto) 7.2 0.0-12.0 % Eosinophils (%) (Auto) 1.8 0.0-7.0 % Basophils (%) (Auto) 0.9 0.0-2.0 % Neutrophils # (Auto) 2.3 1.6-8.6 10 ^3/uL Lymphocytes # (Auto) 1.7 0.4-5.4 10 ^3/uL Monocytes # (Auto) 0.3 0-1.3 10 ^3/uL Eosinophils # (Auto) 0.1 0-0.8 10 ^3/uL Basophils # (Auto) 0 0-0.2 10 ^3/uL Nucleated Red Blood Cells 0.2 % Platelet Estimate Adequate Hypochromasia (manual) Marked Anisocytosis (manual) Slight Microcytosis Marked Ovalocytes Few Schistocytes Few Sodium Level 139 136-145 mmol/L Potassium Level 4.8 3.5-5.1 mmol/L Chloride Level 105 98-107 mmol/L Carbon Dioxide Level 27 20-31 mmol/L Anion Gap 7 5-15 Blood Urea Nitrogen 19 9-23 mg/dL Creatinine 1.17 H 0.550-1.02 mg/dL Glomerular Filtration Rate Calc 53 >90 mL/min BUN/Creatinine Ratio 16.2 10.0-20.0 Serum Glucose 71 L 74-106 mg/dL Calcium Level 9.4 8.7-10.4 mg/dL B-Type Natriuretic Peptide 3.86 0-100 pg/mL Lipase 39 12-53 U/L SEPSIS Sepsis Screen Date sepsis recognized/suspect: Jul 10, 2025 Time Sepsis recognized/suspect: 1955 Recent Procedure: No On Antibiotic Therapy: No Respiratory Rate >20: No Heart Rate >90: No Temp<36 C (96.8 F) or >38.3 C: No SBP <90 or MAP <65 mmHG: No New Acute Mental Status Change: No Is the patient on CPAP, BIPAP,: No Physician Orders Chest Portable (07/10/25 16:59) Urinalysis (07/10/25 19:15) Admit (07/10/25 21:38) Code Status (07/10/25 21:38) Sodium Chloride 0.9% (07/10/25 21:45) Echo 2d Mode Cardiac Dop (07/10/25 21:38) Enoxaparin Sodium (Lovenox) (07/11/25 10:00) Nitroglycerin Sublingual (Ntrostat Subli (07/10/25 21:45) Morphine Sulfate Injection (07/10/25 21:45) Oxygen By Nasal Cannula (07/10/25 21:38) Stat Ekg For Chest Pain (07/10/25 21:38) Notify Md Of Changes From Base (07/10/25 21:38) Racing Secretary For 24 Hours (07/10/25 21:38) Emergency Dysrhythmia Protocol (07/10/25 21:38) Rhythm Strips Once Every Shift (07/10/25 21:38) Consistent Carb(Ccho)Diabetes (07/11/25 Breakfast) Carotid Duplx W Color Dop (07/11/25 10:00) Vital Signs Date Time Temp Pulse Resp B/P (MAP) Pulse Ox O2 Delivery O2 Flow Rate FiO2 07/10/25 22:26 98.1 83 20 115/79 (91) 97 98.1 07/10/25 20:00 104 07/10/25 19:52 80 18 97 Room Air* 0 21 07/10/25 19:52 98.1 82 18 109/66 (80) 97 98.1 07/10/25 19:09 97.9 82 18 86/59 (68) 100 97.9 07/10/25 19:09 82 18 100 Room Air 07/10/25 17:08 78 07/10/25 16:46 78 07/10/25 16:24 98.1 82 16 107/59 96 98.1 Laboratory Tests Test 07/10/25 17:08 07/10/25 19:22 White Blood Count 4.4 10^3/uL (4.4-10.8) Lactic Acid Level 1.1 mmol/L (0.4-2.0) Medications Medications Dose Ordered Sig/Vincenzo Route Start Time Stop Time Status Last Admin Dose Admin Acetaminophen 650 mg ONCE ONCE PO 07/10/25 19:15 07/10/25 19:17 DC 07/10/25 19:23 650 MG Sodium Chloride 1,000 ml @ 60 mls/hr [id number] IV 07/10/25 21:45 07/10/25 21:45 60 MLS/HR Sodium Chloride 1,000 ml @ 1,000 mls/hr Q1H ONCE IV 07/10/25 19:15 07/10/25 20:14 DC 07/10/25 19:15 1,000 MLS/HR Assessment/Plan Assessment/Plan Presyncope Ruled out orthostatic hypotension In ER patient received NSS, Tylenol Orthostatic blood pressure(lyin/69, sitting 119/68, standing 106/76) EKG shows sinus rhythm, heart rate 78, QTC [address] head on 07/06 no intracranial abnormality Echo on 02/2024 EF 55% Troponin 6> less than 3> less than 3 CXR no cardiopulmonary murmur IVF Carotid ultrasound Echocardiogram Cardiology consult as per primary team 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 Creatinine 1.17, baseline 0.86 IVF Avoid nephrotoxic drugs Iron-deficiency anemia Hemoglobin 10.6, HCT 34.5, MCV 67.4, RDW 15.6 Continue ferrous sulfate Essential hypertension Diabetes with hyperlipidemia Home medication amlodipine, metoprolol Metformin Atorvastatin Will start ISS HGB A1c Monitor blood pressure Hypothyroidism Levothyroxine THS Chronic pain syndrome Peripheral neuropathy Low-back pain History of back surgery will resume cyclobenzaprine and crisoprodal as needed Fall precaution Bipolar disorder Anxiety disorder Venlafaxine Quetiapine Diet: Carbohydrate consistent GI prophylaxis: Pantoprazole DVT prophylaxis: Lovenox Goals of care discussion. More than 29 minute spent with patient. Full code status. Case discussed with Dr. Ruffin. Plan discussed with: Patient, Other (Nurse) My Orders Orders - YOLY SPENCER Procedure Category Date Status Time Admit ADMIT 07/10/25 Transmitted 21:38 Code Status CODE 07/10/25 Transmitted 21:38 Sodium Chloride 0.9% PHA 07/10/25 In Process 21:45 Echo 2d Mode Cardiac US 07/10/25 Logged DOP 21:38 Enoxaparin Sodium PHA 07/11/25 In Process (Lovenox) 10:00 Nitroglycerin PHA 07/10/25 In Process Sublingual (Ntrostat 21:45 Morphine Sulfate PHA 07/10/25 In Process Injection 21:45 Oxygen By Nasal RT 07/10/25 Transmitted Cannula 21:38 Stat Ekg For Chest RAFAELA 07/10/25 In Process Pain 21:38 Notify Md Of Changes [facility] 07/10/25 In Process From Base 21:38 Racing Secretary For RAFAELA 07/10/25 In Process 24 Hours 21:38 Emergency Dysrhythmia RAFAELA 07/10/25 In Process Protocol 21:38 Rhythm Strips Once RAFAELA 07/10/25 In Process Every Shift 21:38 Consistent DIET 07/11/25 Transmitted Carb(Ccho)Diabetes Breakfast Carotid Duplx W Color US 07/11/25 Logged DOP 10:00 Date of Service: Jul 10, 2025 Billing Provider: RADHA RUFFIN MD, MOHAMMAD RESIDENT Jul 10, 2025 22:58
[2025-07-11] VITALS (9 sets, daily range): BP systolic 101–114; BP diastolic 44–82; PULSE 74–98; RESP 17–19; TEMP 96.6–98.3; O2SAT 96–100
[2025-07-11] MEDS ORDERED: CYCLOBENZAPRINE HCL 10 MG TAB PO PRN (00:30)
[2025-07-11] MEDS ORDERED: CARISOPRODOL 350 MG TAB PO SCH (06:00)
[2025-07-11] MEDS: PANTOPRAZOLE 40 MG TAB PO SCH (06:01)
[2025-07-11] MEDS: LEVOTHYROXINE SODIUM 100 MCG TAB PO SCH (06:02)
[2025-07-11] MEDS: ESTRADIOL 1 MG TAB PO SCH (06:07)
[2025-07-11 06:30] LABS: Hemoglobin 9.7 g/dL (12.2-16.2); Mean Corpuscular Volume 66.2 fL (80.0-100.0)
[2025-07-11 06:32] LABS: Hematocrit 30.9 % (36.0-46.0); Mean Corpuscular Hemoglobin 20.8 pg (28.0-32.0); Nucleated Red Blood Cells % 0.1 %
[2025-07-11 06:39] LABS: Alanine Aminotransferase 22 U/L (7-40); Albumin 3.7 g/dL (3.2-4.8); Alkaline Phosphatase 59 U/L (46-116); Anion Gap 9 (5-15); BUN/Creatinine Ratio 15.2 (10.0-20.0); Bilirubin, Total 0.4 mg/dL (0.2-1.0); Blood Urea Nitrogen 15 mg/dL (9-23); Carbon Dioxide 26 mmol/L (20-31); Glucose 87 mg/dL (74-106); Potassium 4.5 mmol/L (3.5-5.1); Sodium 143 mmol/L (136-145); Total Protein 6.1 g/dL (5.7-8.2)
[2025-07-11 06:45] LABS: Calcium 8.4 mg/dL (8.7-10.4); Chloride 108 mmol/L (98-107)
[2025-07-11] MEDS: VENLAFAXINE HCL 37.5mg XR cap PO SCH (09:15)
[2025-07-11] MEDS: FERROUS SULFATE 325mg EC TAB PO SCH (09:15)
[2025-07-11] MEDS: ENOXAPARIN SOD 30 MG/0.3 ML SYRINGE SC SCH (09:16)
[2025-07-11] MEDS ORDERED: ESTROGENS CONJUGATED 1.25 MG PO SCH (10:00)
--- NOTE | 2025-07-11 12:49 | DVHPN2 ---
Reviewed: Care Plan, H&P, Labs, Medications, Previous Orders, Radiology Changes from previous H/P or p: No Changes Eyes: No Pain, No Vision change, No Conjunctivae inflammation, No Eyelid inflammation, No Other, No Redness ENT: No Ear pain, No Ear discharge, No Nose pain, No Nose discharge, No Nose congestion, No Mouth pain, No Mouth swelling, No Throat pain, No Throat swelling, No Other Cardiovascular: No Chest Pain, No Palpitations, No Orthopnea, No Paroxysmal Noc. Dyspnea, No Edema, No Lt Headedness, No Other Respiratory: No Cough, No Dry, No Shortness of breath, No SOB with excertion, No Wheezing, No Hemoptysis, No Pleuritic Pain, No Sputum, No Other Gastrointestinal: Nausea; No Vomiting, No Abdominal Pain, No Diarrhea, No Constipation, No Melena, No Hematochezia, No Other Musculoskeletal: back pain Skin: No Rash, No Lesions, No Jaundice, No Bruising, No Other Objective Vitals Vital Signs Date Time Temp Pulse Resp B/P (MAP) Pulse Ox O2 Delivery O2 Flow Rate FiO2 07/11/25 09:05 97.8 79 17 101/58 (72) 97 97.8 07/11/25 08:00 Room Air* 0 21 Intake/Output Intake and Output 07/11/25 07:00 Intake Total 300 ml Balance 300 ml Intake Oral 300 ml # Voids 1 Medications Current Medications Medications Dose Ordered Sig/Vincenzo Route Start Time Stop Time Status Last Admin Dose Admin Sodium Chloride 1,000 ml @ 60 mls/hr [id number] IV 07/10/25 21:45 07/10/25 21:45 60 MLS/HR Enoxaparin Sodium 30 mg DAILY SC 07/11/25 10:00 Nitroglycerin 0.4 mg Q5MINP PRN SL 07/10/25 21:45 Morphine Sulfate 2 mg Q30M PRN IV 07/10/25 21:45 Estradiol 1 mg QAM PO 07/11/25 07:00 Ferrous Sulfate 325 mg BID PO 07/11/25 10:00 07/11/25 09:15 325 MG Levothyroxine Sodium 100 mcg QAM PO 07/11/25 07:00 07/11/25 06:02 100 MCG Venlafaxine HCl 37.5 mg DAILY PO 07/11/25 10:00 07/11/25 09:15 37.5 MG Ergocalciferol 50,000 unit QWEEKLY PO 07/11/25 07:00 Hold Patient Own Medication 1.25 mg DAILY PO 07/11/25 10:00 Hold Atorvastatin Calcium 40 mg HS PO 07/11/25 22:00 Pantoprazole Sodium 40 mg DAILY@0600 PO 07/11/25 06:00 07/11/25 06:01 40 MG Quetiapine Fumarate 400 mg HS PO 07/11/25 22:00 Laboratory Results Laboratory Tests 07/11/25 05:50 Chemistry Test 07/10/25 17:08 07/11/25 05:50 Calcium Level 9.4 mg/dL (8.7-10.4) 8.4 mg/dL (8.7-10.4) L Albumin 3.7 g/dL (3.2-4.8) Total Protein 6.1 g/dL (5.7-8.2) Lipid panel Test 07/10/25 17:08 Lipase 39 U/L (12-53) Cardiac Markers Test 07/10/25 17:08 B-Type Natriuretic Peptide 3.86 pg/mL (0-100) LFT Test 07/11/25 05:50 Alanine Aminotransferase (ALT) 22 U/L (7-40) Alkaline Phosphatase 59 U/L (46-116) Aspartate Amino Transferase (AST) 20 U/L (13-40) Total Bilirubin 0.4 mg/dL (0.2-1.0) Labs and/or images reviewed: Labs reviewed by me, Image(s) reviewed by me Assessment/Plan Assessment/Plan Syncope Rule out orthostatic hypotension blood pressure 82/40 in the field 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
[2025-07-11] MEDS: LACTATED RINGER'S 1,000 ML IV SCH (13:15)
--- NOTE | 2025-07-11 14:05 | DVH ---
Procedure: CT HEAD WITHOUT CONTRAST Study Date and Requested Time: 07/11/2025 01:28 PM History: Recurrent falls Comparison: CT HEAD WITHOUT CONTRAST on DOS: 06/25/24, CT HEAD WITHOUT CONTRAST on DOS: 05/25/24, HEAD WITHOUT CONTRAST on DOS: 05/03/22 Dose: CTDI: 53.39 mGy DLP: 855.92 mGycm Technique: Multiplanar images obtained through the brain without intravenous contrast. Findings: Normal brain volume and formation. Mild chronic small vessel ischemic changes. No hemorrhages, masses, mass effect, midline shift, herniation or cytotoxic edema following a large vascular territory. No intra-axial or extra-axial fluid collections. No evidence of hydrocephalus. The basal cisterns are patent. The pituitary gland, sella and parasellar regions are unremarkable. The cerebellar tonsils are in normal position. The cerebellum is unremarkable. The orbits and globes are unremarkable. The paranasal sinuses and mastoids are clear. There are no worrisome calvarial lesions. Impression: No evidence of acute intracranial abnormality.
--- NOTE | 2025-07-11 14:22 | DVH ---
US CAROTID DUPLX W COLOR DOP History: presyncope Comparison: None Technique: Ramirez-scale, Color and Duplex Doppler imaging of the bilateral carotid systems was performed. Findings: No significant plaque present in the carotid bulbs. The following flow velocities were obtained: Right Carotid System: ICA PSV: 96 cm/sec ICA PDV: 34 cm/sec ICA/CCA Ratio: 1.3 Left Carotid System: ICA PSV: 74 cm/sec ICA PDV: 31 cm/sec ICA/CCA Ratio: 1.0 Bilateral common carotid, external carotid arteries, and vertebral arteries are patent. IMPRESSION: RIGHT ICA STENOSIS PER *SRU CRITERIA: NO SIGNIFICANT STENOSIS. LEFT ICA STENOSIS PER *SRU CRITERIA: NO SIGNIFICANT STENOSIS. Estimation of carotid stenosis is based on velocity parameters that correlate the residual internal carotid diameter with that of the more distal vessel in accordance with the [place] Symptomatic Carotid Endarterectomy Trial (NASCET)
[2025-07-11] MEDS: ATORVASTATIN 20 MG TAB PO SCH (21:24)
[2025-07-12] VITALS (8 sets, daily range): BP systolic 107–142; BP diastolic 75–94; PULSE 72–97; RESP 16–20; TEMP 97.4–98.4; O2SAT 97–99
[2025-07-12 06:00] LABS: Hematocrit 30.1 % (36.0-46.0); Hemoglobin 9.3 g/dL (12.2-16.2); Mean Corpuscular Hemoglobin 20.5 pg (28.0-32.0); Mean Corpuscular Volume 66.5 fL (80.0-100.0); Nucleated Red Blood Cells % 0.1 %
[2025-07-12 06:42] LABS: Alanine Aminotransferase 21 U/L (7-40); Alkaline Phosphatase 59 U/L (46-116); Anion Gap 7 (5-15); BUN/Creatinine Ratio 13.6 (10.0-20.0); Blood Urea Nitrogen 12 mg/dL (9-23); Carbon Dioxide 28 mmol/L (20-31); Potassium 4.5 mmol/L (3.5-5.1); Sodium 142 mmol/L (136-145)
[2025-07-12 06:44] LABS: Albumin 3.4 g/dL (3.2-4.8); Calcium 8.6 mg/dL (8.7-10.4); Chloride 107 mmol/L (98-107); Glucose 108 mg/dL (74-106); Total Protein 5.6 g/dL (5.7-8.2)
[2025-07-12 06:45] LABS: Bilirubin, Total 0.2 mg/dL (0.2-1.0)
[2025-07-12 07:13] LABS: COVID19 ANTIGEN SOFIA FIA NEGATIVE (NEGATIVE)
--- NOTE | 2025-07-12 09:34 | DVHSR ---
APPROVED REPORT EXAM: Two-dimensional and M-mode echocardiogram with Doppler and color Doppler. Blood Pressure: 101/44 mmHg INDICATION Presyncope RISK FACTORS Obesity: Height: 5'1", Weight: 192 DIMENSIONS LVDd 3.9 (3.8-5.7cm) LA (2D) 3.8 (1.9-4.0cm) Aortic Root 3.2 (2.0-3.7cm) LVDs 2.6 (2.5-4.0cm) LA (MM) (1.9-4.0cm) Aortic Cusp Exc 1.8 (1.5-2.0cm) EF (%) 60.0 (55-70%) Rt. Atrium 3.8 (1.9-4.0cm) Asc. Aorta cm IVSd 1.0 (0.7-1.1cm) RV (D) 3.9 (1.8-2.4cm) PWd 0.9 (0.7-1.1cm) Mitral Valve Mitral Mitral Stenosis E wave 0.77m/s MV Mean GR. mmHg A wave 0.75m/s MV Peak GR. mmHg E/A ratio 1.0 2D MVA cm2 DECEL Time 216ms PRESS 1/2 Time ms Aortic Valve Aortic Valve Aortic Stenosis V1 1.12m/s AO Mean GR. 3mmHg V2 1.21m/s AO Peak GR. 6mmHg LVOT Diameter 2.1 (1.8-2.4cm) Doppler KHADRA 3.20cm2 Pulmonic Valve V2 0.67m/s Tricuspid Valve TR Velocity 2.60m/s RVSP 30mmHg Conclusion lvef 60% by visual estimate moderate LVH normal rv function biatrial enlargement no severe valve abnormalities noted
--- NOTE | 2025-07-12 11:02 | DVHPN2 ---
Reviewed: Care Plan, H&P, Labs, Medications, Previous Orders, Radiology Changes from previous H/P or p: No Changes Eyes: No Pain, No Vision change, No Conjunctivae inflammation, No Eyelid inflammation, No Other, No Redness ENT: No Ear pain, No Ear discharge, No Nose pain, No Nose discharge, No Nose congestion, No Mouth pain, No Mouth swelling, No Throat pain, No Throat swelling, No Other Cardiovascular: No Chest Pain, No Palpitations, No Orthopnea, No Paroxysmal Noc. Dyspnea, No Edema, No Lt Headedness, No Other Respiratory: No Cough, No Dry, No Shortness of breath, No SOB with excertion, No Wheezing, No Hemoptysis, No Pleuritic Pain, No Sputum, No Other Gastrointestinal: Nausea; No Vomiting, No Abdominal Pain, No Diarrhea, No Constipation, No Melena, No Hematochezia, No Other Musculoskeletal: back pain Skin: No Rash, No Lesions, No Jaundice, No Bruising, No Other Objective Vitals Vital Signs Date Time Temp Pulse Resp B/P (MAP) Pulse Ox O2 Delivery O2 Flow Rate FiO2 07/12/25 09:00 97.9 77 16 121/78 (92) 99 97.9 07/11/25 20:00 Room Air* 0 21 Intake/Output Intake and Output 07/12/25 07:00 Intake Total 2520 ml Balance 2520 ml Intake Oral 2520 ml # Voids 6 Medications Current Medications Medications Dose Ordered Sig/Vincenzo Route Start Time Stop Time Status Last Admin Dose Admin Enoxaparin Sodium 30 mg DAILY SC 07/11/25 10:00 07/12/25 10:30 30 MG Nitroglycerin 0.4 mg Q5MINP PRN SL 07/10/25 21:45 Morphine Sulfate 2 mg Q30M PRN IV 07/10/25 21:45 Estradiol 1 mg QAM PO 07/11/25 07:00 07/12/25 06:08 1 MG Ferrous Sulfate 325 mg BID PO 07/11/25 10:00 07/12/25 10:25 325 MG Levothyroxine Sodium 100 mcg QAM PO 07/11/25 07:00 07/12/25 06:08 100 MCG Venlafaxine HCl 37.5 mg DAILY PO 07/11/25 10:00 07/12/25 10:25 37.5 MG Ergocalciferol 50,000 unit QWEEKLY PO 07/11/25 07:00 Hold Patient Own Medication 1.25 mg DAILY PO 07/11/25 10:00 Hold Atorvastatin Calcium 40 mg HS PO 07/11/25 22:00 07/11/25 21:24 40 MG Pantoprazole Sodium 40 mg DAILY@0600 PO 07/11/25 06:00 07/12/25 06:08 40 MG Quetiapine Fumarate 400 mg HS PO 07/11/25 22:00 07/11/25 21:24 400 MG Lactated Ringer's 1,000 ml @ 150 mls/hr Q6H40M IV 07/11/25 13:15 07/12/25 09:15 150 MLS/HR Laboratory Results Laboratory Tests 07/12/25 05:29 Chemistry Test 07/12/25 05:29 Albumin 3.4 g/dL (3.2-4.8) Calcium Level 8.6 mg/dL (8.7-10.4) L Total Protein 5.6 g/dL (5.7-8.2) L LFT Test 07/12/25 05:29 Alanine Aminotransferase (ALT) 21 U/L (7-40) Alkaline Phosphatase 59 U/L (46-116) Aspartate Amino Transferase (AST) 20 U/L (13-40) Total Bilirubin 0.2 mg/dL (0.2-1.0) Labs and/or images reviewed: Labs reviewed by me, Image(s) reviewed by me Assessment/Plan Assessment/Plan Syncope Rule out orthostatic hypotension blood pressure 82/40 in the field, echocardiogram 60 % ejection fraction 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 Iron-deficiency anemia Hypertension Uncontrolled diabetes: A1c 10.6 Hypercholesterolemia Hypothyroidism Chronic pain syndrome Diabetic neuropathy vasculopathy Chronic back pain History of back surgery Bipolar Anxiety Depression Spent 55 minutes Advanced care planning time 20 minutes Patient is full code Chest x-ray negative Briseyda test negative Flu test negative CT head negative, Carotid ultrasound negative Plan discussed with: Patient My Orders Orders - SIRISHA MCKEON MD Procedure Category Date Status Time Head Without Contrast CT 07/11/25 Resulted 12:52 Lactated Ringer's PHA 07/11/25 In Process 13:15 Date of Service: Jul 12, 2025 Billing Provider: SIRISHA MCKEON MD Common Visit Codes: [id number] CARE 30-74 MIN SIRISHA MCKEON MD Jul 12, 2025 11:02
[2025-07-12] MEDS: ACETAMINOPHEN 500 MG TAB or CAP PO PRN (21:44)
[2025-07-13] MEDS ORDERED: ACETAMINOPHEN 500 MG TAB or CAP PO PRN (00:45)
[2025-07-13 01:08] VITALS: BP 114/78; PULSE 88; RESP 18; TEMP 98.3; O2SAT 96
[2025-07-13 04:35] VITALS: BP 107/54; PULSE 86; RESP 17; TEMP 98.5; O2SAT 94
[2025-07-13] MEDS: HYDROcodone-ACET 5/325MG TAB PO PRN (06:21)
[2025-07-13 08:00] VITALS: PULSE 78; RESP 20; O2SAT 93
[2025-07-13 09:00] VITALS: BP 123/90; PULSE 83; RESP 20; TEMP 97.2; O2SAT 96
--- NOTE | 2025-07-13 11:19 | DVHPN2 ---
Reviewed: Care Plan, H&P, Labs, Medications, Previous Orders, Radiology Changes from previous H/P or p: No Changes Eyes: No Pain, No Vision change, No Conjunctivae inflammation, No Eyelid inflammation, No Other, No Redness ENT: No Ear pain, No Ear discharge, No Nose pain, No Nose discharge, No Nose congestion, No Mouth pain, No Mouth swelling, No Throat pain, No Throat swelling, No Other Cardiovascular: No Chest Pain, No Palpitations, No Orthopnea, No Paroxysmal Noc. Dyspnea, No Edema, No Lt Headedness, No Other Respiratory: No Cough, No Dry, No Shortness of breath, No SOB with excertion, No Wheezing, No Hemoptysis, No Pleuritic Pain, No Sputum, No Other Gastrointestinal: Nausea; No Vomiting, No Abdominal Pain, No Diarrhea, No Constipation, No Melena, No Hematochezia, No Other Musculoskeletal: back pain Skin: No Rash, No Lesions, No Jaundice, No Bruising, No Other Objective Vitals Vital Signs Date Time Temp Pulse Resp B/P (MAP) Pulse Ox O2 Delivery O2 Flow Rate FiO2 07/13/25 09:00 97.2 83 20 123/90 (101) 96 97.2 07/12/25 20:00 Room Air* 0 21 Intake/Output Intake and Output 07/13/25 07:00 Intake Total 1400 ml Balance 1400 ml Intake Oral 1400 ml # Voids 10 Medications Current Medications Medications Dose Ordered Sig/Vincenzo Route Start Time Stop Time Status Last Admin Dose Admin Enoxaparin Sodium 30 mg DAILY SC 07/11/25 10:00 07/13/25 11:05 30 MG Nitroglycerin 0.4 mg Q5MINP PRN SL 07/10/25 21:45 Morphine Sulfate 2 mg Q30M PRN IV 07/10/25 21:45 Estradiol 1 mg QAM PO 07/11/25 07:00 07/13/25 06:18 1 MG Ferrous Sulfate 325 mg BID PO 07/11/25 10:00 07/13/25 11:05 325 MG Levothyroxine Sodium 100 mcg QAM PO 07/11/25 07:00 07/13/25 06:18 100 MCG Venlafaxine HCl 37.5 mg DAILY PO 07/11/25 10:00 07/13/25 11:05 37.5 MG Ergocalciferol 50,000 unit QWEEKLY PO 07/11/25 07:00 Hold Patient Own Medication 1.25 mg DAILY PO 07/11/25 10:00 Hold Atorvastatin Calcium 40 mg HS PO 07/11/25 22:00 07/12/25 21:40 40 MG Pantoprazole Sodium 40 mg DAILY@0600 PO 07/11/25 06:00 07/13/25 06:18 40 MG Quetiapine Fumarate 400 mg HS PO 07/11/25 22:00 07/12/25 21:40 400 MG Lactated Ringer's 1,000 ml @ 150 mls/hr Q6H40M IV 07/11/25 13:15 07/12/25 15:55 150 MLS/HR Acetaminophen 500 mg Q6HP PRN PO 07/13/25 00:45 Acetaminophen/ Hydrocodone Bitart 1 tab Q6HPRN PRN PO 07/13/25 01:00 07/13/25 06:21 1 TAB Laboratory Results Laboratory Tests 07/12/25 05:29 Labs and/or images reviewed: Labs reviewed by me, Image(s) reviewed by me Assessment/Plan Assessment/Plan Recurrent episodes of Syncope Rule out orthostatic hypotension blood pressure 82/40 in the field, echocardiogram 60 % ejection fraction 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
--- NOTE | 2025-07-13 11:24 | DVHDS2 ---
Discharge Summary Date of Admission Jul 10, 2025 at 21:38 Date of Discharge: Jul 13, 2025 Admitting Diagnosis Syncope Wounds: None Labs/Diagnostic Data: Laboratory Results Test 07/12/25 05:29 07/12/25 00:00 07/11/25 05:50 07/10/25 19:22 White Blood Count 4.4 10^3/uL (4.4-10.8) Red Blood Count 4.53 10^6/uL (4.0-5.20) Hemoglobin 9.3 g/dL (12.2-16.2) Hematocrit 30.1 % (36.0-46.0) Mean Corpuscular Volume 66.5 fL (80.0-100.0) Mean Corpuscular Hemoglobin 20.5 pg (28.0-32.0) Mean Corpuscular Hemoglobin Concent 30.8 g/dL (32.0-36.0) Red Cell Distribution Width 15.5 % (11.8-14.3) Platelet Count 333 10^3/uL (140-450) Mean Platelet Volume 7.6 fL (6.9-10.8) Neutrophils (%) (Auto) 46.6 % (37.0-80.0) Lymphocytes (%) (Auto) 43.6 % (10.0-50.0) Monocytes (%) (Auto) 7.1 % (0.0-12.0) Eosinophils (%) (Auto) 2.0 % (0.0-7.0) Basophils (%) (Auto) 0.7 % (0.0-2.0) Neutrophils # (Auto) 2.1 10 ^3/uL (1.6-8.6) Lymphocytes # (Auto) 1.9 10 ^3/uL (0.4-5.4) Monocytes # (Auto) 0.3 10 ^3/uL (0-1.3) Eosinophils # (Auto) 0.1 10 ^3/uL (0-0.8) Basophils # (Auto) 0 10 ^3/uL (0-0.2) Nucleated Red Blood Cells 0.1 % Sodium Level 142 mmol/L (136-145) Potassium Level 4.5 mmol/L (3.5-5.1) Chloride Level 107 mmol/L (98-107) Carbon Dioxide Level 28 mmol/L (20-31) Anion Gap 7 (5-15) Blood Urea Nitrogen 12 mg/dL (9-23) Creatinine 0.88 mg/dL (0.550-1.02) Glomerular Filtration Rate Calc 75 mL/min (>90) BUN/Creatinine Ratio 13.6 (10.0-20.0) Serum Glucose 108 mg/dL (74-106) Calcium Level 8.6 mg/dL (8.7-10.4) Total Bilirubin 0.2 mg/dL (0.2-1.0) Aspartate Amino Transferase (AST) 20 U/L (13-40) Alanine Aminotransferase (ALT) 21 U/L (7-40) Alkaline Phosphatase 59 U/L (46-116) Total Protein 5.6 g/dL (5.7-8.2) Albumin 3.4 g/dL (3.2-4.8) Influenza Type A Antigen Negative (Negative) Influenza Type B Antigen Negative (Negative) SARS-CoV-2 Antigen (Rapid) Negative (NEGATIVE) Platelet Estimate Adequate Hypochromasia (manual) Marked Microcytosis Marked Lactic Acid Level 1.1 mmol/L (0.4-2.0) Troponin I High Sensitivity < 3 ng/L (</=34) Test 07/10/25 17:08 Anisocytosis (manual) Slight Ovalocytes Few Schistocytes Few B-Type Natriuretic Peptide 3.86 pg/mL (0-100) Lipase 39 U/L (12-53) Other Laboratory Tests 07/12/25 05:29 Brief Hx & Hospital Course: 60-year-old female with a history of hypertension diabetes hypercholesterolemia hypothyroidism chronic pain syndrome chronic back pain history of back surgery bipolar anxiety depression came in for syncopal episode. 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 Chest x-ray negative Briseyda test negative flu test negative CT head negative carotid ultrasound negative patient feels better and wants to go home. RN Mary the bedside. No New meds. She will follow up with discharge clinic in one week and with the PCP Dr. Mcclain. 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 Mcclain Medications: None Scheduled Amoxicillin Trihydrate (Amoxicillin), 1 TAB PO TID Carisoprodol (Carisoprodol), 350 MG PO TID Cetirizine Hcl (Zyrtec Allergy), 10 MG PO BID, (Reported) Dicyclomine Hcl (Bentyl Capsule), 1 CAP PO TID Diphenhydramine Hcl (Banophen), 50 MG PO DAILY, (Reported) Docusate Sodium (Colace), 1 CAP PO BID Ergocalciferol (Vitamin D2), 50,000 UNIT PO DAILY, (Reported) Estradiol (Estradiol), 1 MG PO QAM, (Reported) Estrogens, Conjugated (Premarin Tablet), 1.25 MG PO DAILY, (Reported) Ferrous Sulfate (Ferrous Sulfate), 325 MG PO BID, (Reported) Fluoxetine Hcl (Fluoxetine Hcl), 1 TAB PO DAILY, (Reported) Fluoxetine Hcl (Pmdd) (Selfemra), 3 CAP PO DAILY, (Reported) Metformin Hydrochloride (Metformin Hcl), 500 MG PO IBID, (Reported) Metoclopramide Hcl (Metoclopramide Hcl), 10 MG PO QAM, (Reported) Metoprolol Tartrate (Lopressor), 50 MG PO BID Omeprazole (Gnp Omeprazole), 1 TAB PO DAILY, (Reported) Polyethylene Glycol (Miralax 17GM Pwd), 17 GRAMS PO DAILY, (Reported) Prednisone (Prednisone), 10 MG PO DAILY Quetiapine Fumerate (Seroquel), 2 TAB PO HS, (Reported) Simvastatin (Simvastatin), 1 TAB PO QPM, (Reported) Sucralfate (Carafate), 1 GM OR QIDACHS Zolpidem Tartrate (Zolpidem Tartrate), 1 TAB PO QPM, (Reported) Scheduled PRN Acetaminophen (Acetaminophen), 650 MG PO Q6HP PRN Cyclobenzaprine HCl (Cyclobenzaprine Hydrochlo), 10 MG PO Q8HPRN PRN Epinephrine (Anaphylaxis) (Auvi-Q), 0.1 MG IJ O PRN Famotidine (Pepcid AC), 20 MG PO QHSP PRN Linaclotide Base (Linzess), 290 MCG OR DAILYPRN PRN Magnesium Citrate (Magnesium Citrate), 300 MG OR DAILY PRN Sodium Phosphates (Fleet Enema Six Pack), 1 BOTTLE RE DAILY PRN Miscellaneous Medications Amlodipine Besylate (Norvasc Tablet), 2.5 MG GT, (Reported) Atorvastatin Calcium (Lipitor), 40 MG PO, (Reported) Fenofibrate (Tricor), (Reported) Hydroxyzine Hcl (Hydroxyzine Hcl), 50 MG PO, (Reported) Levothyroxine Sodium (Synthroid Tablet), 100 MCG PO, (Reported) Lubiprostone (Amitiza), 24 MCG PO, (Reported) Naloxegol Oxalate (Movantik), 25 MG PO, (Reported) Plecanatide (Trulance), 3 MG PO, (Reported) Venlafaxine Hcl (Venlafaxine Hcl Er), (Reported) Durable Medical Equipment Blood Pressure Monitoring (3 Series Blood Pressure M), UNIT XX ONCE, (DME) 39 (Time taken for discharge summary 39 minutes) Discharge Statement: "Patient was advised to return to the ER or call 911 if any headaches, dizziness, shortness of breath, chest pain, abdominal pain, bleeding, fevers, or worsening of medical condition. Patient was counseled about treatment plan, medications, possible side effects, patientverbalized understanding. All questions were answered to the best of my ability. 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
[2025-07-13 11:51] LABS: Hepatitis B Surface Antigen Negative (Negative)
[2025-07-13 12:17] LABS: Hepatitis C Antibody Negative (Negative)
[2025-07-13 13:00] VITALS: BP 117/82; PULSE 84; RESP 20; TEMP 97.2; O2SAT 99
[2025-07-13 13:25] VITALS: BP 123/90; PULSE 83; RESP 20; TEMP 36.2; O2SAT 96
== END 2025-07-13 15:15 | disposition home health service (06) | DRG 312 ==
LOC: EDBD 16:16 → ER 16:16 → OVERFLOW 21:38 → TELE-EAST 23:49
PROVIDERS: ADMIT Family Medicine; ATTEND Family Medicine
DX: I95.1 Orthostatic hypotension (principal); N17.0 Acute kidney failure with tubular necrosis; D50.9 Iron deficiency anemia, unspecified; E03.9 Hypothyroidism, unspecified; E11.40 Type 2 diabetes mellitus with diabetic neuropathy, unspecified; E11.22 Type 2 diabetes mellitus with diabetic chronic kidney disease; I12.9 Hypertensive chronic kidney disease with stage 1 through stage 4 chronic kidney disease, or unspecified chronic kidney disease; N18.9 Chronic kidney disease, unspecified; F31.9 Bipolar disorder, unspecified; E11.65 Type 2 diabetes mellitus with hyperglycemia; Z20.822 Contact with and (suspected) exposure to COVID-19; E78.00 Pure hypercholesterolemia, unspecified; F41.9 Anxiety disorder, unspecified; K59.09 Other constipation; G89.4 Chronic pain syndrome; K21.9 Gastro-esophageal reflux disease without esophagitis; Z90.49 Acquired absence of other specified parts of digestive tract; Z88.8 Allergy status to other drugs, medicaments and biological substances; Z91.018 Allergy to other foods; Z79.899 Other long term (current) drug therapy
CPT/HCPCS: 36415; 70450; 71045; 80048; 80053; 83605; 83690; 83880; 84484; 85025; 86803; 87340; 87426; 87804; 93005; 93306; 93886; 96360; 97110; 97116; 97163; 97530; 99291; G0378

== ENCOUNTER 2025-08-11 08:17 | Outpatient (CLI) | payer OTHER, MEDICAID ==
[2025-08-11 08:39] LABS: Hematocrit 33.0 % (36.0-46.0); Hemoglobin 10.2 g/dL (12.2-16.2); Mean Corpuscular Hemoglobin 20.8 pg (28.0-32.0); Mean Corpuscular Volume 67.5 fL (80.0-100.0); Nucleated Red Blood Cells % 0.1 %
[2025-08-11 09:13] LABS: Alanine Aminotransferase 11 U/L (7-40); Albumin 4.1 g/dL (3.2-4.8); Alkaline Phosphatase 67 U/L (46-116); Anion Gap 7 (5-15); BUN/Creatinine Ratio 7.8 (10.0-20.0); Blood Urea Nitrogen 8 mg/dL (9-23); Calcium 9.4 mg/dL (8.7-10.4); Carbon Dioxide 28 mmol/L (20-31); Chloride 105 mmol/L (98-107); Glucose 98 mg/dL (74-106); Potassium 3.9 mmol/L (3.5-5.1); Sodium 140 mmol/L (136-145); Total Protein 6.9 g/dL (5.7-8.2); Triglycerides 118 mg/dL (< 150)
[2025-08-11 09:15] LABS: Bilirubin, Total 0.4 mg/dL (0.2-1.0)
[2025-08-11 09:16] LABS: Cholesterol 275 mg/dL (< 200); HDL Cholesterol 76 mg/dL (40-59)
[2025-08-11 10:08] LABS: Iron 70.0 ug/dL (50-170)
[2025-08-11 10:11] LABS: Total Iron Binding Capacity 300.0 ug/dL (250-425)
[2025-08-11 10:15] LABS: Ferritin 50.2 ng/mL (10-291)
== END 2025-08-11 17:00 | disposition home or self-care (01) ==
LOC: LAB 08:17
PROVIDERS: ATTEND Licensed Practical Nurse
DX: I10 Essential (primary) hypertension (principal); E78.5 Hyperlipidemia, unspecified; R73.03 Prediabetes; E55.9 Vitamin D deficiency, unspecified; Z86.2 Personal history of diseases of the blood and blood-forming organs and certain disorders involving the immune mechanism; Z79.899 Other long term (current) drug therapy
CPT/HCPCS: 36415; 80053; 80061; 82306; 82607; 82728; 83036; 83540; 83550; 84443; 85025